=== PATIENT | female | born 1940 | race Caucasian/White ===

== ENCOUNTER 2019-09-11 09:57 | Outpatient (CLI) | payer MEDICARE, SELFPAY ==
--- NOTE | 2019-09-11 10:09 | MM_ITS ---
WS: [id number] BILATERAL DIGITAL DIAGNOSTIC MAMMOGRAM MAMMOGRAPHY WITH CAD CLINICAL INFORMATION: HX OF BREAST CA COMPARISON: December 17, 2016 TECHNIQUE: Bilateral CC, MLO, and ML views. FINDINGS: The breasts are composed of heterogeneous fibroglandular density, which can limit the detection of sm all underlying mass lesions. Stable lucent centered calcifications. Stable postoperative changes with parenchymal scarring in the left lower inner breast. This is stable since the prior examination. No significant interval changes. Stable right breast. MM/[id number] IMPRESSION: BI-RADS: 2-Benign FOLLOW UP: 1 Year Follow-up Recommend return to annual diagnostic mammography.
== END 2019-09-11 09:58 | disposition home or self-care (01) ==
LOC: RADSHAW 10:02
PROVIDERS: Family Provider Internal Medicine; PCP Internal Medicine; Visit Provider Internal Medicine
DX: Z85.3 Personal history of malignant neoplasm of breast (principal)
CPT/HCPCS: 77066

== ENCOUNTER 2019-09-14 19:03 | Emergency (ER) | payer MEDICARE, SELFPAY ==
[2019-09-14 19:17] VITALS: BP 205/119; PULSE 72; RESP 16; TEMP 36.6; O2SAT 98
--- NOTE | 2019-09-14 19:20 | CTR_ITS ---
PROCEDURE INFORMATION: Exam: CT Head Without Contrast Exam date and time: 09/14/2019 7:55 PM Age: 79 years old Clinical indication: Injury or trauma; Fall; Initial encounter; Blunt trauma (contusions or hematomas); Consciousness not specified; Injury details: Fell onto concrete. RT orbit lac TECHNIQUE: Imaging protocol: Computed tomography of the head without contrast. Total DLP: 662.4 mGy-cm Radiation optimization: All CT scans at this facility use at least one of these dose optimization techniques: automated exposure control; mA and/or kV adjustment per patient size (includes targeted exams where dose is matched to clinical indication); or iterative reconstruction. COMPARISON: No relevant prior studies available. FINDINGS: Brain: Small acute subarachnoid hemorrhage in the high right frontal lobe. There are moderate periventricular and subcortical lucencies consistent with chronic microvascular ischemic changes. The ashton-white differentiation is maintained. No edema. Ventricles: Ventricles and sulci are prominent consistent with age appropriate parenchymal volume loss. Bones/joints: Unremarkable. No acute fracture. Sinuses: Visualized sinuses are unremarkable. No fluid levels. Mastoid air cells: Visualized mastoid air cells are well aerated. Soft tissues: Right periorbital hematoma. CT/CT head wo con* [id number] IMPRESSION: Small acute subarachnoid hemorrhage in the high right frontal lobe. Radiation Dose CTDIVOL = (mGy): DLP = 662.4 (mGy-cm)
--- NOTE | 2019-09-14 19:28 | XR_ITS ---
WS: [id number] KNEE LEFT TECHNIQUE: 3 views of the left knee CLINICAL INFORMATION: fall COMPARISON: None. FINDINGS: Osteopenia. Postoperative changes intramedullary minnie and screw fixation left femur. Moderate degenera tive arthritis left knee. Vascular calcification. No evidence of hardware loosening. No visualized fr actures. XR/XR knee LT 3V* [id number] IMPRESSION: 1. Osteopenia. No acute fractures. 2. Intramedullary minnie and screw fixation left hip and femur.
--- NOTE | 2019-09-14 19:28 | ED_ITS ---
Documented by User: ORLIN Pena 09/14/19 21:28 HPI - Fall General: Chief Complaint: Fall Stated Complaint: FALL/FOREHEAD LAC Time Seen by Provider: 09/14/19 19:24 History of Present Illness: HPI Narrative: Patient complains about fall at home just a little while ago. Patient tripped on her feet. Struck right side of her head. And sustained a laceration. Also complains about left knee pain with abrasion. Patient is on blood thinners. History of multiple falls. MD complaint: fall Onset (ago): minute(s) Fall from: standing Fall witnessed: yes, by family Place fall occurred: home Loss of consciousness: None Symptoms prior to fall: none Context: tripped/slipped Location of injury - extremities: Left: knee Severity: mild Associated symptoms-after fall: Denies abdominal pain, chest pain or headache(s) Review of Systems Narrative: Laceration right forehead and knee abrasion and pain left Const: Denies: fever, chills or body aches Eyes: Denies: change in vision or blurry vision ENMT: Denies: throat pain or nasal congestion Card: Denies: chest pain or shortness of breath on exertion Resp: Denies: shortness of breath, productive cough or non-productive cough GI: Denies: abdominal pain, nausea or vomiting Musc: Reports: extremity pain; Denies: joint pain or joint swelling Skin/Breast: Denies: rash Neuro: Denies: headache Psych: Denies: anxiety or depression Krishna/Lymph: Denies: easy bruising PFSH ED PFSH: Statuses (acute, chronic, etc) shown below reflect problem list status as previously entered and may not be historically accurate Social History Smoking and tobacco status: never smoked Physical Exam Const: COMMON NORMALS: no apparent distress, average body habitus and oriented x3 HENMT: COMMON NORMALS: normocephalic HEAD & SCALP: normal to inspection and normocephalic FACE & SINUS: normal facial exam Eye: COMMON NORMALS: conjunctivae normal GENERAL EYE: normal appearance of both eyes CONJUNCTIVA: Yes conjunctivae normal Neck/C-Spine: COMMON NORMALS: no JVD Chest: COMMONS NORMALS: inspection of chest normal Resp: COMMON NORMALS: normal respiratory effort and clear to auscultation bilaterally AUSCULTATION: clear to auscultation bilaterally Cardio: COMMON NORMALS: no JVD, regular rate and regular rhythm RATE: regular rate RHYTHM: regular rhythm GI: COMMON NORMALS: normal to inspection, nondistended, normoactive bowel sounds Extremity: COMMON NORMALS: normal to inspection and full ROM LEFT LOWER EXTREMITY: Yes knee joint (Multiple abrasions left knee no swelling pain with palpation has good range of motion) Neuro: COMMON NORMALS: oriented x3 Skin: GENERAL SKIN EXAM: ecchymosis Procedures Laceration Laceration 1: Site: face Side (If applicable): right Size (cm): 1.5 Description: irregular Depth: simple, single layer Local Anesthetic: lidocaine 1% Pre-repair: wound explored Skin layer closed with: nylon Size (cm): 4-0 Number of sutures: 4 Technique: simple, interrupted Course Vital Signs: Vital signs: Vital Signs Temperature 97.8 F 09/14/19 19:17 Pulse Rate 74 09/14/19 21:31 Respiratory Rate 18 09/14/19 21:31 Blood Pressure 178/89 09/14/19 21:31 Pulse Oximetry 93 09/14/19 21:31 MDM - Fall Lab Data: Labs: Lab Results 09/14/19 09/14/19 09/14/19 Range/Units 21:01 21:01 21:01 WBC 8.7 (4.0-10.0) 10^3/ uL RBC 4.11 (4.1-5.3) 10^6/u L Hgb 13.8 (11.5-15.3) g/dL Hct 42.9 (37.0-47.0) % MCV 104.4 H (81-99) fL MCH 33.6 (28.0-34.0) pg MCHC 32.2 (30.0-36.0) g/dL RDW 13.2 (12.1-15.1) % Plt Count 167 (130-400) 10^3/c mm MPV 10.2 (7.4-10.4) fL Neut % (Auto) 78.7 % Lymph % (Auto) 12.3 % Waller % (Auto) 6.3 % Eos % (Auto) 2.1 % Baso % (Auto) 0.3 % Neut # (Auto) 6.9 (1.8-7.7) 10^3/u L Lymph # (Auto) 1.1 (0.8-4.8) 10^3/u L Waller # (Auto) 0.6 (0.2-0.9) 10^3/u L Eos # (Auto) 0.2 (0.0-0.8) 10^3/u L Baso # (Auto) 0.0 (0.0-0.1) 10^3/u L Nucleated RBC % (a uto) 0 % Nucleated RBCs # 0.0 /100WBC PT 15.20 H (10.5-13.3) SECO NDS INR 1.16 (0.8-1.2) Sodium 140 (136-145) mmol/L Potassium 4.0 (3.5-5.1) mmol/L Chloride 104 (98-107) mmol/L Carbon Dioxide 22 (22-29) mmol/L Anion Gap 18.0 (5-19) BUN 18 (8-23) mg/dL Creatinine 1.0 H (0.5-0.9) mg/dL Glucose 131 H (74-106) mg/dL Calcium 9.8 (8.8-10.2) mg/Dl Total Bilirubin 0.6 (0.15-1.2) mg/dL AST 26 (0-32) U/L ALT 16 (0-33) U/L Alkaline Phosphata se 85 (35-105) IU/L Total Protein 7.6 (6.6-8.7) g/dL Albumin 4.0 (3.5-5.2) g/dL Globulin 3.6 (1.3-4.6) g/dL Discharge Plan Discharge Patient Disposition: Transfer to ED Clinical Impression: Subarachnoid hemorrhage Condition: Stable Referrals: Miguel Moser DO [Primary Care Provider] - Coding Level of Care Code ED Hose Suspender Cutter for Chg Fwd Exam Problem Focused Documented by User: Sharlene Hanson MD 09/14/19 22:08 HPI - Fall General: Chief Complaint: Fall Stated Complaint: FALL/FOREHEAD LAC Time Seen by Provider: 09/14/19 19:24 [facility] ED PFSH: Statuses (acute, chronic, etc) shown below reflect problem list status as previously entered and may not be historically accurate Social History Smoking and tobacco status: never smoked Course Vital Signs: Vital signs: Vital Signs Temperature 97.8 F 09/14/19 19:17 Pulse Rate 74 09/14/19 21:31 Respiratory Rate 18 09/14/19 21:31 Blood Pressure 178/89 09/14/19 21:31 Pulse Oximetry 93 09/14/19 21:31 MDM - Fall MDM Narrative: Medical decision making narrative: Patient presents with subarachnoid hemorrhage from a fall. Patient is hypertensive as well. Patient started on Cardizem drip and blood pressure improved slightly and given hydralazine as well and is 134/100 on transfer. I spoke to ER physician at [facility] and will transfer there for higher level of care as patient needs neurosurgery. I spoke to Dr. Holcomb here about the possibility of giving Andexxa. As a subarachnoid hemorrhage is small decision made at this time not to delay transfer for the Andexxa and will transfer onto [facility]. Patient has been stable here with no symptoms. Lab Data: Labs: Lab Results 09/14/19 09/14/19 09/14/19 Range/Units 21:01 21:01 21:01 WBC 8.7 (4.0-10.0) 10^3/ uL RBC 4.11 (4.1-5.3) 10^6/u L Hgb 13.8 (11.5-15.3) g/dL Hct 42.9 (37.0-47.0) % MCV 104.4 H (81-99) fL MCH 33.6 (28.0-34.0) pg MCHC 32.2 (30.0-36.0) g/dL RDW 13.2 (12.1-15.1) % Plt Count 167 (130-400) 10^3/c mm MPV 10.2 (7.4-10.4) fL Neut % (Auto) 78.7 % Lymph % (Auto) 12.3 % Waller % (Auto) 6.3 % Eos % (Auto) 2.1 % Baso % (Auto) 0.3 % Neut # (Auto) 6.9 (1.8-7.7) 10^3/u L Lymph # (Auto) 1.1 (0.8-4.8) 10^3/u L Waller # (Auto) 0.6 (0.2-0.9) 10^3/u L Eos # (Auto) 0.2 (0.0-0.8) 10^3/u L Baso # (Auto) 0.0 (0.0-0.1) 10^3/u L Nucleated RBC % (a uto) 0 % Nucleated RBCs # 0.0 /100WBC PT 15.20 H (10.5-13.3) SECO NDS INR 1.16 (0.8-1.2) Sodium 140 (136-145) mmol/L Potassium 4.0 (3.5-5.1) mmol/L Chloride 104 (98-107) mmol/L Carbon Dioxide 22 (22-29) mmol/L Anion Gap 18.0 (5-19) BUN 18 (8-23) mg/dL Creatinine 1.0 H (0.5-0.9) mg/dL Glucose 131 H (74-106) mg/dL Calcium 9.8 (8.8-10.2) mg/Dl Total Bilirubin 0.6 (0.15-1.2) mg/dL AST 26 (0-32) U/L ALT 16 (0-33) U/L Alkaline Phosphata se 85 (35-105) IU/L Total Protein 7.6 (6.6-8.7) g/dL Albumin 4.0 (3.5-5.2) g/dL Globulin 3.6 (1.3-4.6) g/dL Imaging Data^: CT Head: Radiologist's impression: Ordering Physician: Sharlene Hanson MD Date of Service: 09/14/19 Procedure(s): CT head wo con* [id number] Accession Number(s): [id number] cc: Sharlene Hanson MD ADDENDUM CT/CT head wo con* [id number] THIS REPORT CONTAINS FINDINGS THAT MAY BE CRITICAL TO PATIENT CARE. The findings were verbally communicated via telephone conference with THIERRY Coffman at 8:30 PM TOOL/DIE MAKER on 09/14/2019. The findings were acknowledged and understood. Radiation Dose CTDIVOL = (mGy): DLP = 662.4 (mGy-cm) Addendum Dictated By: Jackson Rizzo MD 09/14/192029 Addendum Signed By: Jackson Rizzo MD 09/14/192031 PROCEDURE INFORMATION: Exam: CT Head Without Contrast Exam date and time: 09/14/2019 7:55 PM Age: 79 years old Clinical indication: Injury or trauma; Fall; Initial encounter; Blunt trauma (contusions or hematomas); Consciousness not specified; Injury details: Fell onto concrete. RT orbit lac TECHNIQUE: Imaging protocol: Computed tomography of the head without contrast. Total DLP: 662.4 mGy-cm Radiation optimization: All CT scans at this facility use at least one of these dose optimization techniques: automated exposure control; mA and/or kV adjustment per patient size (includes targeted exams where dose is matched to clinical indication); or iterative reconstruction. COMPARISON: No relevant prior studies available. FINDINGS: Brain: Small acute subarachnoid hemorrhage in the high right frontal lobe. There are moderate periventricular and subcortical lucencies consistent with chronic microvascular ischemic changes. The ashton-white differentiation is maintained. No edema. Ventricles: Ventricles and sulci are prominent consistent with age appropriate parenchymal volume loss. Bones/joints: Unremarkable. No acute fracture. Sinuses: Visualized sinuses are unremarkable. No fluid levels. Mastoid air cells: Visualized mastoid air cells are well aerated. Soft tissues: Right periorbital hematoma. CT/CT head wo con* [id number] IMPRESSION: Small acute subarachnoid hemorrhage in the high right frontal lobe. Critical Care Time Critical Care Time: Critical Care Time: Yes Total Critical Care Time: 35 Attestation: Consulted with neurosurgery had strict blood pressure control for subarachnoid hemorrhage and had to transfer to [facility]. Discharge Plan Discharge Patient Disposition: Transfer to ED Clinical Impression: Subarachnoid hemorrhage Condition: Stable Referrals: Miguel Moser DO [Primary Care Provider] - Coding Level of Care Code ED Hose Suspender Cutter for Chg Fwd Exam Problem Focused
--- NOTE | 2019-09-14 19:43 | PC.NURSE ---
Assisted patient off of the bedside commode and to the bed. Patient was able to change out of wet pants into briefs and paper bottom scrubs with assistance. Placed patient on Pulse Ox and Blood Pressure, call light in reach and family at bedside.
[2019-09-14 21:11] LABS: Basophils % 0.3 %; Eosinophils # 0.2 10^3/uL (0.0-0.8); Eosinophils % 2.1 %; Hematocrit 42.9 % (37.0-47.0); Hemoglobin 13.8 g/dL (11.5-15.3); Lymphocytes # 1.1 10^3/uL (0.8-4.8); Lymphocytes % 12.3 %; Mean Corpuscular HGB Conc 32.2 g/dL (30.0-36.0); Mean Corpuscular Hemoglobin 33.6 pg (28.0-34.0); Mean Corpuscular Volume 104.4 fL (81-99); Mean Platelet Volume 10.2 fL (7.4-10.4); Monocytes # 0.6 10^3/uL (0.2-0.9); Monocytes % 6.3 %; Neutrophils # 6.9 10^3/uL (1.8-7.7); Neutrophils % 78.7 %; Nucleated Red Blood Cells % 0 %; Platelet Count 167 10^3/cmm (130-400); Red Blood Count 4.11 10^6/uL (4.1-5.3); Red Cell Distribution Width 13.2 % (12.1-15.1); White Blood Count 8.7 10^3/uL (4.0-10.0)
[2019-09-14 21:17] LABS: INR 1.16 (0.8-1.2)
[2019-09-14 21:28] LABS: Alanine Aminotransferase 16 U/L (0-33); Alkaline Phosphatase 85 IU/L (35-105); Aspartate Amino Transferase 26 U/L (0-32); Blood Urea Nitrogen 18 mg/dL (8-23); Calcium 9.8 mg/Dl (8.8-10.2); Carbon Dioxide 22 mmol/L (22-29); Chloride 104 mmol/L (98-107); Globulin 3.6 g/dL (1.3-4.6); Glucose 131 mg/dL (74-106); Sodium 140 mmol/L (136-145); Total Bilirubin 0.6 mg/dL (0.15-1.2); Total Protein 7.6 g/dL (6.6-8.7)
--- NOTE | 2019-09-14 21:29 | PC.NURSE ---
PT UP TO BSC WITH STAND BY ASSIST. FAMILY AT BEDSIDE. CARDENE GTT INFUSING ORDERED.
[2019-09-14 21:31] VITALS: BP 178/89; PULSE 74; RESP 18; O2SAT 93
[2019-09-14] MEDS: hyDRALAzine 20 mg/mL INJ 1 mL IVP (21:42)
[2019-09-14 22:22] VITALS: BP 176/88; PULSE 72; RESP 31; TEMP 36.4; O2SAT 92
[2019-09-14 22:23] VITALS: BP 100/43; PULSE 70; RESP 18; O2SAT 96
== END 2019-09-14 22:26 ==
PROVIDERS: Nurse Practitioner Family; Emergency Provider Emergency Medicine; Family Provider Internal Medicine; PCP Internal Medicine
DX: I60.9 Nontraumatic subarachnoid hemorrhage, unspecified (principal); S01.81XA Laceration without foreign body of other part of head, initial encounter; W01.0XXA Fall on same level from slipping, tripping and stumbling without subsequent striking against object, initial encounter; Y92.009 Unspecified place in unspecified non-institutional (private) residence as the place of occurrence of the external cause
CPT/HCPCS: 12011; 70450; 73562; 80053; 85025; 85610; 96360; 96365; 96374; 96375; 99281; J0360; J7050

== ENCOUNTER 2020-08-16 08:59 | Outpatient (CLI) | payer MEDICARE, SELFPAY ==
--- NOTE | 2020-08-16 09:30 | USCV_ITS ---
Silvana Martinez Age: 80 Gender: F : 1940 Exam Date: 08/16/2020 09:24 Ordering Phys: Sherry Porter Technologist: Doris Elliott Exam Location: [facility] [place] Indication: HISTORY: Varicose veins. PROCEDURES: Bilateral duplex Venous Insufficiency study of the Deep and Superficial systems was carried out according to normal protocol with the patient in supine positon for deep system and dependent position for the superficial system. FINDINGS: There is no evidence of bilateral deep vein thrombosis. No evidence of superficial thrombosis in the bilateral saphenous system. No evidence of reflux was noted in the bilateral deep venous system. No venous reflux noted in the bilateral small saphenous vein. Venous reflux is demonstrated in the bilateral greater saphenous vein with a spectral Doppler display of greater than 500 milliseconds at the below the knee level. CONCLUSIONS 1. No evidence of DVT or superficial vein thrombosis in the above- mentioned identifiable veins. 2. Significant venous reflux of greater than 500 ms were noted bilaterally at the below-knee segment of the greater saphenous vein. On the right side, the venous segment was 0.31 cm in diameter at a depth of 1.66 cm. On the left side the venous segment was of small caliber( 0.19 cm in diameter), at a depth of 1.63 cm. 3. No significant reflux was noted in the deep veins. Dr Siena Xiong MD [facility] (Electronically Signed) Final Date: 16 August 2020 20:02 S
== END 2020-08-16 09:00 | disposition home or self-care (01) ==
PROVIDERS: PCP Internal Medicine; Visit Provider Nurse Practitioner Family
DX: I87.2 Venous insufficiency (chronic) (peripheral) (principal); I83.91 Asymptomatic varicose veins of right lower extremity; I83.92 Asymptomatic varicose veins of left lower extremity
CPT/HCPCS: 93970

== ENCOUNTER 2020-09-16 09:39 | Outpatient (CLI) | payer MEDICARE, SELFPAY ==
--- NOTE | 2020-09-16 09:46 | MM_ITS ---
WS: [id number] DIAGNOSTIC BILATERAL DIGITAL MAMMOGRAM WITH CAD HISTORY: HX OF BREAST CA COMPARISON: 09/11/2019, 12/17/2016 TECHNIQUE: Bilateral craniocaudad, mediolateral oblique, and mediolateral views are submitted. Comput er aided detection utilized. Breast composition: The breasts are heterogeneously dense, which may obscure small masses. Postsurgic al changes with distortion and postoperative clips are noted in the central LEFT breast. Similar to t he prior study. No recurrent mass. There are benign calcifications otherwise within each breast. Smal l portion of the LEFT breast is being obscured by the patient's generator from cardiac pacer. MM/[place] [id number] IMPRESSION: BI-RADS: 2-Benign FOLLOW UP: 1 Year Follow-up
== END 2020-09-16 09:40 | disposition home or self-care (01) ==
PROVIDERS: PCP Internal Medicine; Visit Provider Internal Medicine
DX: Z85.3 Personal history of malignant neoplasm of breast (principal)
CPT/HCPCS: 77066

== ENCOUNTER 2020-11-04 17:48 | Emergency (ER) | payer MEDICARE, SELFPAY ==
--- NOTE | 2020-11-04 17:50 | XRR_ITS ---
PROCEDURE INFORMATION: Exam: XR Right Wrist Exam date and time: 11/04/2020 6:00 PM Age: 80 years old Clinical indication: Pain and injury or trauma; Fall; Blunt trauma (contusions or hematomas); Wrist; Right; Injury date: 11/04/20; Additional info: Fall, injury TECHNIQUE: Imaging protocol: XR Right wrist. Views: 3 or more views. COMPARISON: No relevant prior studies available. FINDINGS: Bones/joints: Acute comminuted intra-articular fracture of the distal radius with dorsal displacement and angulation of the major distal fracture fragment. Displaced ulnar styloid avulsion fracture. Degenerative change. Soft tissues: Soft tissue swelling. XR/XR wrist RT min 3V* [id number] IMPRESSION: 1. Acute comminuted intra-articular fracture of the distal radius with dorsal displacement and angulation of the major distal fracture fragment. 2. Displaced ulnar styloid avulsion fracture.
[2020-11-04 17:51] VITALS: BP 141/87; PULSE 72; RESP 14; TEMP 36.4; O2SAT 98; BMI 32.5
--- NOTE | 2020-11-04 18:09 | W.ED.FALL ---
HPI - Fall General: Chief Complaint: Fall Stated Complaint: FALL/R WRIST PAIN Time Seen by Provider: 11/04/20 18:03 Source: patient Mode of arrival: ambulatory Limitations: no limitations History of Present Illness: HPI Narrative: Patient comes in today for injury to the right wrist. Patient had stood up from her chair and tripped and fell landing with an outstretched right arm. Patient sustained a deformity to the distal right forearm. Patient is unable to put pressure on the arm. Patient had to come in by EMS due to needing assistance getting up off the floor. Patient denies any loss of consciousness or other eliciting events for the fall. 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 2012 Social History Smoking and tobacco status: former smoker Alcohol intake: never Physical Exam Const: COMMON NORMALS: no acute distress and patient oriented x3 GENERAL APPEARANCE: cooperative HENMT: COMMON NORMALS: normocephalic and Normal external nose present HEAD & SCALP: normal to inspection and normocephalic NOSE: Normal external nose present MOUTH: Normal oral and palatal mucosa present Eye: GENERAL EYE: appearance normal, both eyes and all related structures Neck/C-Spine: COMMON NORMALS: full ROM Chest: COMMONS NORMALS: normal inspection of the chest Resp: COMMON NORMALS: normal respiratory effort EFFORT & INSPECTION: Yes able to speak in complete sentences Cardio: COMMON NORMALS: regular rate and regular rhythm RATE: regular rate RHYTHM: regular rhythm GI: COMMON NORMALS: non-tender Back/Pelvis: COMMON NORMALS: thoracic and lumbar spine normal to inspection Extremity: COMMON NORMALS: normal to inspection NARRATIVE EXTREMITY EXAM: deformity to distal right forearm, Edson splint in place Neuro: COMMON NORMALS: patient oriented x3 and moves all extremities Psych: COMMON NORMALS: mental status grossly normal and cooperative Skin: COMMON NORMALS: no rashes or lesions noted GENERAL SKIN EXAM: no rashes or lesions noted Procedures Orthopedic Splinting/Casting Injury #1: Side: right Upper Extremity Injury Location: forearm Upper Extremity Immobilizer: sling/shoulder immobilizer and sugar tong splint Course Vital Signs: Vital signs: Vital Signs Temperature 97.6 F 11/04/20 17:51 Pulse Rate 72 11/04/20 17:51 Respiratory Rate 14 11/04/20 17:51 Blood Pressure 141/87 11/04/20 17:51 Pulse Oximetry 98 11/04/20 17:51 MDM - Fall MDM Narrative: Medical decision making narrative: Patient came in for injury to the right distal forearm. On exam we note a dinner fork deformity to the exam. There is a small abrasion noted to the ventral side of the forearm without any sign of bony protrusion. X-ray noted comminuted fracture of the distal radius. Patient was tolerating injury well. Patient was placed in a sugar tong splint and cap refill and sensation remained intact. Plan is for patient to follow-up with orthopedics for further treatment and evaluation. Patient reported understanding of care plan and agreed to plan. Patient was written a prescription for hydrocodone with acetaminophen for pain. Instructions were given on the use of opioid medications. Case management was consulted to assist with orthopedic referral. Discharge Plan Discharge Patient Disposition: Home Clinical Impression: Fracture of wrist Qualifiers: Encounter type: initial encounter Fracture type: closed Laterality: right Qualified Code(s): S62.101A - Fracture of unspecified carpal bone, right wrist, initial encounter for closed fracture Condition: Stable Prescriptions: New hydrocodone-acetaminophen 5-325 mg tablet 1 tab PO Q6H PRN (Reason: pain) Qty: 14 RF: 0 No Action duloxetine 30 mg capsule,delayed release(DR/EC) 30 mg PO DAILY RF: 0 isosorbide mononitrate 30 mg tablet extended release 24 hr 30 mg PO DAILY RF: 0 Eliquis 2.5 mg tablet 2.5 mg PO BID RF: 0 gabapentin 300 mg capsule 300 mg PO TID RF: 0 potassium chloride 10 mEq capsule, extended release 10 meq PO DAILY RF: 0 sertraline 50 mg tablet 50 mg PO DAILY RF: 0 cholecalciferol (vitamin D3) 2,000 unit tablet 2,000 unit PO DAILY RF: 0 [id number] Tablet PO RF: 0 carvedilol 6.25 mg tablet 6.25 mg PO BID RF: 0 alendronate 70 mg tablet PO .weekly RF: 0 simvastatin 20 mg tablet 10 mg PO DAILY RF: 0 furosemide 20 mg tablet 40 mg PO QAM RF: 0 Discharge Orders: Discharge ED (Routine); Ordered 11/04/20 Ordered By: Justin Wolf Referrals: Miguel Moser DO [Primary Care Provider] - Discharge Diet: Usual diet Discharge Activity: Increase activity as tolerated Patient Instructions: Wrist Fracture in Adults (ED), Opioid Safety Activity Restrictions/Additional Instructions: Keep splint clean and dry. Follow-up with orthopedics office for further treatment. Case management should contact you tomorrow for an appointment with orthopedist. If you do not hear from them by tomorrow afternoon please call the emergency department and talk with the ER charge nurse to be directed to the nurse outreach case manager for further assistance. Take medication as directed for pain. Use ice or heat for further pain relief. Drink plenty of water with medication. The medication is a narcotic and may make you lightheaded, nauseous, or can cause constipation. You may try acetaminophen or ibuprofen for pain relief if you are able to take these medications and can tolerate them. Return to the emergency department for new concerns, or any questions regarding your injury. Coding Level of Care Code ED Cdl A Driver for Scottie Fwd Exam Comprehensive
[2020-11-04] MEDS: HYDROcodone-acetaminophen 5-325 mg Tablet 2 TAB PO (18:53)
--- NOTE | 2020-11-05 10:47 | DCPLANNER ---
blood bank business manager had message to schedule a follow up appointment for patient with ortho. blood bank business manager called the ortho clinic, spoke with Ivette, gave clinic patients information. blood bank business manager was told that patients information would be printed and reviewed. Clinic will call patient with appointment information.
--- NOTE | 2020-11-05 13:58 | DCPLANNER ---
Patient has a follow up appointment scheduled for Friday, November 06, 2020 at 8:[address] Dunlap at the ortho clinic. manager commodities gave patient the appointment information.
--- NOTE | 2020-11-13 15:08 | DCPLANNER ---
Patient had a follow up appointment scheduled for 11.06.[address] Dunlap - patient did attend appointment.
== END 2020-11-04 19:13 | disposition home or self-care (01) ==
PROVIDERS: Emergency Provider Nurse Practitioner Family; PCP Internal Medicine
DX: S52.591A Other fractures of lower end of right radius, initial encounter for closed fracture (principal); W01.0XXA Fall on same level from slipping, tripping and stumbling without subsequent striking against object, initial encounter; Z79.01 Long term (current) use of anticoagulants; I48.91 Unspecified atrial fibrillation; Z95.810 Presence of automatic (implantable) cardiac defibrillator; I10 Essential (primary) hypertension; Z87.891 Personal history of nicotine dependence
CPT/HCPCS: 73110; 99283

== ENCOUNTER → 2020-11-06 09:04 | Outpatient (BNVA) | payer MEDICARE, SELFPAY | PROVIDERS: PCP Internal Medicine; Referring Provider Nurse Practitioner Family; Visit Provider Specialist | DX: S52.601A Unspecified fracture of lower end of right ulna, initial encounter for closed fracture (principal); S52.501A Unspecified fracture of the lower end of right radius, initial encounter for closed fracture; W18.09XA Striking against other object with subsequent fall, initial encounter; S62.101A Fracture of unspecified carpal bone, right wrist, initial encounter for closed fracture | CPT/HCPCS: 73100; 73110 ==

== ENCOUNTER → 2020-11-18 10:24 | Outpatient (BNVA) | payer MEDICARE, SELFPAY | PROVIDERS: PCP Internal Medicine; Visit Provider Specialist | DX: S52.501A Unspecified fracture of the lower end of right radius, initial encounter for closed fracture (principal); S52.601A Unspecified fracture of lower end of right ulna, initial encounter for closed fracture; X58.XXXA Exposure to other specified factors, initial encounter; Z46.89 Encounter for fitting and adjustment of other specified devices; S52.591D Other fractures of lower end of right radius, subsequent encounter for closed fracture with routine healing; X58.XXXD Exposure to other specified factors, subsequent encounter; S52.691D Other fracture of lower end of right ulna, subsequent encounter for closed fracture with routine healing | CPT/HCPCS: 73110; 97760; L3982 ==

== ENCOUNTER 2020-11-18 11:49 | Outpatient (CLI) | payer MEDICARE, SELFPAY | END 2020-11-18 11:50 | disposition home or self-care (01) | LOC: SPT 11:50 | PROVIDERS: PCP Internal Medicine; Visit Provider Specialist | DX: Z46.89 Encounter for fitting and adjustment of other specified devices (principal); S52.591D Other fractures of lower end of right radius, subsequent encounter for closed fracture with routine healing; S52.691D Other fracture of lower end of right ulna, subsequent encounter for closed fracture with routine healing; X58.XXXD Exposure to other specified factors, subsequent encounter | CPT/HCPCS: 97760; L3982 ==

== ENCOUNTER → 2020-12-02 08:47 | Outpatient (BNVA) | payer MEDICARE, SELFPAY | PROVIDERS: PCP Internal Medicine; Visit Provider Specialist | DX: S52.501A Unspecified fracture of the lower end of right radius, initial encounter for closed fracture (principal); S52.601A Unspecified fracture of lower end of right ulna, initial encounter for closed fracture; X58.XXXA Exposure to other specified factors, initial encounter | CPT/HCPCS: 73110 ==

== ENCOUNTER → 2020-12-23 09:36 | Outpatient (BNVA) | payer MEDICARE, SELFPAY | PROVIDERS: PCP Internal Medicine; Visit Provider Specialist | DX: S52.501D Unspecified fracture of the lower end of right radius, subsequent encounter for closed fracture with routine healing (principal); S52.601D Unspecified fracture of lower end of right ulna, subsequent encounter for closed fracture with routine healing; W01.0XXD Fall on same level from slipping, tripping and stumbling without subsequent striking against object, subsequent encounter | CPT/HCPCS: 73110 ==

== ENCOUNTER 2021-11-19 12:23 | Outpatient (CLI) | payer MEDICARE, SELFPAY ==
--- NOTE | 2021-11-19 12:30 | MM_ITS ---
WS: [id number] BILATERAL 3D TOMOSYNTHESIS DIGITAL SCREENING MAMMOGRAPHY WITH CAD CLINICAL INFORMATION: HX OF BREAST CA HISTORY: Screening mammogram. No current complaints. COMPARISON: September 16, 2020 TECHNIQUE: Bilateral CC and MLO views. FINDINGS: Scattered fibroglandular densities bilaterally. Biopsy clips RIGHT breast. Punctate and secretory yazmin cifications. Cardiac pacer partially visualized. Lumpectomy with parenchymal fibrosis LEFT breast. No suspicious focal mass, asymmetry, calcifications, or architectural distortion. No evidence of malign sarah. MM/[place] [id number] IMPRESSION: BI-RADS: 2-Benign FOLLOW UP: 1 Year Follow-up Recommend return to annual screening mammography.
== END 2021-11-19 12:24 | disposition home or self-care (01) ==
LOC: RADSHAW 12:25
PROVIDERS: PCP Internal Medicine; Visit Provider Internal Medicine
DX: Z85.3 Personal history of malignant neoplasm of breast (principal)
CPT/HCPCS: 77062

== ENCOUNTER → 2022-02-13 11:07 | Outpatient (BNVA) | payer MEDICARE, SELFPAY | PROVIDERS: PCP Internal Medicine; Visit Provider Internal Medicine | DX: Z45.02 Encounter for adjustment and management of automatic implantable cardiac defibrillator (principal) | CPT/HCPCS: 93284 ==

== ENCOUNTER → 2022-05-15 10:58 | Outpatient (BNVA) | payer MEDICARE, SELFPAY | PROVIDERS: PCP Internal Medicine; Visit Provider Internal Medicine | DX: I11.0 Hypertensive heart disease with heart failure (principal); I50.9 Heart failure, unspecified; Z87.891 Personal history of nicotine dependence; I48.19 Other persistent atrial fibrillation; Z79.01 Long term (current) use of anticoagulants; Z95.810 Presence of automatic (implantable) cardiac defibrillator; I25.10 Atherosclerotic heart disease of native coronary artery without angina pectoris | CPT/HCPCS: 93281; 93284; 99214 ==

== ENCOUNTER → 2022-09-18 10:30 | Outpatient (BNVA) | payer MEDICARE, SELFPAY | PROVIDERS: PCP Internal Medicine; Visit Provider Internal Medicine | DX: Z45.02 Encounter for adjustment and management of automatic implantable cardiac defibrillator (principal) | CPT/HCPCS: 93284 ==

== ENCOUNTER 2022-09-20 14:28 | Emergency (ER) | payer MEDICARE, SELFPAY ==
[2022-09-20 14:39] VITALS: BP 140/79; PULSE 96; RESP 18; TEMP 36.5; O2SAT 97
--- NOTE | 2022-09-20 15:13 | XRR_ITS ---
PROCEDURE INFORMATION: Exam: XR Chest Exam date and time: 09/20/2022 3:21 PM Age: 82 years old Clinical indication: Device placement; Cardiac pacemaker placement or adjustment; Patient HX: Batteries in pacemaker set to be changed on 09/22/2022; Additional info: Fall; Weak TECHNIQUE: Imaging protocol: Radiologic exam of the chest. Views: 1 view. COMPARISON: CR XR chest 1V [id number] 01/31/2017 2:28 AM FINDINGS: Lungs: Unremarkable. No consolidation. Pleural spaces: Unremarkable. No pleural effusion. No pneumothorax. Heart/Mediastinum: Unremarkable. No cardiomegaly. Bones/joints: Unremarkable. There is a cardiac device in the left anterior chest in good position. XR/XR chest 1V portable [id number] IMPRESSION: No acute findings. Cardiac device left anterior chest in good position
--- NOTE | 2022-09-20 15:13 | CTR_ITS ---
PROCEDURE INFORMATION: Exam: CT Head Without Contrast Exam date and time: 09/20/2022 3:34 PM Age: 82 years old Clinical indication: Injury or trauma; Fall; Blunt trauma (contusions or hematomas); Consciousness not specified; Additional info: Confusion; On blood thinner TECHNIQUE: Imaging protocol: Computed tomography of the head without contrast. Radiation optimization: All CT scans at this facility use at least one of these dose optimization techniques: automated exposure control; mA and/or kV adjustment per patient size (includes targeted exams where dose is matched to clinical indication); or iterative reconstruction. COMPARISON: CT head wo con* [id number] 09/14/2019 8:10 PM RADIATION DOSE METRICS: Total DLP (mGy-cm): 906.74 FINDINGS: Brain: Normal. No hemorrhage. Unremarkable white matter. No mass effect. Cerebral ventricles: No ventriculomegaly. Paranasal sinuses: Visualized sinuses are unremarkable. No fluid levels. Mastoid air cells: Visualized mastoid air cells are well aerated. Bones/joints: Unremarkable. No acute fracture. Soft tissues: Unremarkable. CT/CT head wo con* [id number] IMPRESSION: No acute intracranial abnormality.
--- NOTE | 2022-09-20 15:16 | ED_ITS ---
HPI - Altered Mental Status General: Chief Complaint: Altered Mental Status Stated Complaint: Fall, Dark urine, Confusion Time Seen by Provider: 09/20/22 14:48 Source: patient and other (friend) Mode of arrival: ambulatory Limitations: no limitations History of Present Illness: See nursing assessment. Patient states she slid off the edge of the bed on Wednesday night and landed on the floor. She states she had no injury. However, she was too weak in her upper extremities to pull her self back up. She states that she pulled off her blankets and pillow from the bed and slept on the floor from Wednesday night until Wednesday morning until family came and helped her. She states she did not having a drink or eat during that time. She was taken to [facility] urgent care this weekend and told that she had a lot of protein in her urine. According to friend, patient has been more confused than normal over the past couple days in which she had trouble using her remote control for her TV and also trouble using her phone. Patient is alert and oriented x3 now. Patient is on Eliquis for history of atrial fibrillation. She also has a pacemaker and is scheduled to have her battery replaced in 2 days. She has not had any buzzing of the defibrillator or pacemaker. Possible history includes congestive heart failure, coronary disease, venous insufficiency, coronary stent, atrial fibrillation, essential hypertension. She denies any pain or injury. She denies any headache or neurological changes. She denies any chest or abdominal pain. She denies any shortness of breath. She denies any nausea vomiting or diarrhea. She denies any dysuria Associated symptoms: Deny depression Review of Systems Const: Reports: fatigue and malaise; Denies: fever(s) or chills Eyes: Denies: change in vision ENMT: Denies: throat pain Card: Denies: chest pain, palpitations or edema Resp: Denies: dyspnea, non-productive cough or wheezing GI: Denies: abdominal pain, nausea or vomiting : Denies: flank pain, dysuria, urinary frequency or urinary urgency Musc: Denies: neck pain, back pain, extremity pain, extremity swelling, joint pain or joint swelling Skin/Breast: Denies: rash, pruritus or erythema Neuro: Reports: confusion; Denies: headache(s), numbness in extremities, weakness in extremities, sensory changes, lack of coordination, difficulty walking, dizziness, Slurred speech present or involuntary movements Psych: Denies: anxiety or depression Krishna/Lymph: Denies: enlarged lymph nodes PFSH ED PFSH: Medical History Atrial fibrillation CAD (coronary artery disease) Cardiac resynchronization therapy defibrillator (NURSE INFORMATICS EDUCATOR-D) in place HTN (hypertension) Presence of stent in left circumflex coronary artery 2012 Social History Smoking and tobacco status: former smoker Alcohol intake: never Physical Exam Narrative: Patient is awake alert and oriented x3. Patient is talkative. Speech is clear. Const: COMMON NORMALS: no acute distress, average body habitus, patient orient ed x3, no limitations, healthy appearing, alert and well nourished HENMT: COMMON NORMALS: normocephalic and atraumatic HEAD & SCALP: normocephalic and atraumatic Eye: COMMON NORMALS: Equal, round and reactive pupils present, EOMs intact bilaterally, conjunctivae normal and no scleral icterus CONJUNCTIVA: Yes conjunctivae normal PUPIL: Yes Equal, round and reactive pupils present Neck/C-Spine: COMMON NORMALS: full ROM, no lymphadenopathy, supple, no meni ngeal signs, no JVD and Thyroid normal THYROID: Thyroid normal Lymph: LYMPHATIC: no lymphadenopathy noted and no lymphedema noted Chest: COMMONS NORMALS: normal inspection of the chest Resp: COMMON NORMALS: normal respiratory effort and No retractions Cardio: COMMON NORMALS: no JVD, regular rate (No irregular rate), regular rhythm and No murmurs present (Cardio) RATE: regular rate (No irregular rate) RHYTHM: regular rhythm GI: COMMON NORMALS: Normal to inspection, nondistended, normoactive bowel sounds present, Soft to palpation, non-tender, No hepatosplenomegaly present, no masses and no bruits PALPATION: Yes Soft to palpation and Yes No hepatosplenomegaly present : COMMON NORMALS: Yes no CVA tenderness BLADDER/KIDNEY EXAM: Yes no CVA tenderness OTHER: No flank pain. Back/Pelvis: COMMON NORMALS: no CVA tenderness, thoracic and lumbar spine normal to inspection and no thoracic nor lumbar tenderness Extremity: COMMON NORMALS: normal to inspection, full ROM and no clubbing, cyanosis or edema Neuro: LUIS FELIPE COMA SCALE: document GCS findings Cameron coma scale eye opening: Spontaneous Cameron coma scale verbal response: Orientated Luis Felipe coma scale motor response: Obey commands Luis Felipe coma scale total score: 15 COMMON NORMALS: patient oriented x3, CN's II-XII intact bilaterally, moves all extremities, no focal motor deficits and no sensory deficits noted SENSORIUM/ ORIENTATION: Yes alert MENINGEAL SIGNS: Yes no meningeal signs Psych: COMMON NORMALS: mental status grossly normal, Normal thought process present, cooperative, normal affect, speech normal, activity/motor behavior normal and denies hallucinations SPEECH: Yes normal speech THOUGHT PROCESS: Normal thought process present Skin: COMMON NORMALS: no rashes or lesions noted and no wounds GENERAL SKIN EXAM: no rashes or lesions noted Course Vital Signs: Vital signs: Vital Signs Temperature 97.7 F 09/20/22 14:39 Pulse Rate 93 09/20/22 18:23 Respiratory Rate 18 09/20/22 18:23 Blood Pressure 138/88 09/20/22 17:47 Pulse Oximetry 97 09/20/22 18:23 Oxygen Delivery Me thod 09/20/22 18:23 MDM - Altered Mental Status Medical Decision Making Generalized weakness. Possible rhabdomyolysis. No evidence of dehydration or rhabdomyolysis on her work-up. Patient states she is ready go home. She is well-hydrated. Lab Data 09/20/22 15:51 09/20/22 15:51 Radiology Impressions Chest X-Ray 09/20/22 15:13 IMPRESSION: No acute findings. Cardiac device left anterior chest in good position Head CT 09/20/22 15:13 IMPRESSION: No acute intracranial abnormality. Laboratory Results WBC 4.6 10^3/uL (4.0-10.0) 09/20/22 15:51 RBC 3.70 10^6/uL (4.1-5.3) L 09/20/22 15:51 Hgb 13.2 g/dL (11.5-15.3) 09/20/22 15:51 Hct 40.4 % (37.0-47.0) 09/20/22 15:51 MCV 109.2 fl (81-99) H 09/20/22 15:51 MCH 35.7 pg (28.0-34.0) H 09/20/22 15:51 MCHC 32.7 g/dL (30.0-36.0) 09/20/22 15:51 RDW 13.8 % (12.1-15.1) 09/20/22 15:51 Plt Count 120 10^3/cmm (130-400) L 09/20/22 15:51 MPV 11.1 fL (7.4-10.4) H 09/20/22 15:51 Neut % (Auto) 66.6 % 09/20/22 15:51 Lymph % (Auto) 21.9 % 09/20/22 15:51 [place] % (Auto) 10.7 % 09/20/22 15:51 Eos % (Auto) 0.4 % 09/20/22 15:51 Baso % (Auto) 0.2 % 09/20/22 15:51 Neut # (Auto) 3.04 10^3/uL (1.8-7.7) 09/20/22 15:51 Lymph # (Auto) 1.0 10^3/uL (0.8-4.8) 09/20/22 15:51 [place] # (Auto) 0.5 10^3/uL (0.2-0.9) 09/20/22 15:51 Eos # (Auto) 0.0 10^3/uL (0.0-0.8) 09/20/22 15:51 Baso # (Auto) 0.0 10^3/uL (0.0-0.1) 09/20/22 15:51 Nucleated RBC % (auto) 0 % 09/20/22 15:51 Nucleated RBCs # 0.0 /100WBC 09/20/22 15:51 APTT 39.2 SECONDS (23.9-36.7) H 09/20/22 16:11 Sodium 134 mmol/L (136-145) L 09/20/22 15:51 Potassium 3.7 mmol/L (3.5-5.1) 09/20/22 15:51 Chloride 99 mmol/L (98-107) 09/20/22 15:51 Carbon Dioxide 23 mmol/L (22-29) 09/20/22 15:51 Anion Gap 15.7 (5-19) 09/20/22 15:51 BUN 20 mg/dL (8-23) 09/20/22 15:51 Creatinine 1.0 mg/dL (0.5-0.9) H 09/20/22 15:51 GFR Calculation Not Reportable 09/20/22 15:51 Glucose 81 mg/dL (65-115) 09/20/22 15:51 Calculated Osmolality 280 mOsm/kg (285-295) L 09/20/22 15:51 Calcium 8.4 mg/dL (8.5-10.5) L 09/20/22 15:51 Total Bilirubin 1.1 mg/dL (0.15-1.2) 09/20/22 15:51 AST 34 U/L (0-32) H 09/20/22 15:51 ALT 13 U/L (0-33) 09/20/22 15:51 Alkaline Phosphatase 56 U/L (35-105) 09/20/22 15:51 Creatine Kinase 67 U/L (26-192) 09/20/22 15:51 Total Protein 7.2 g/dL (6.6-8.7) 09/20/22 15:51 Albumin 3.5 g/dL (3.5-5.2) 09/20/22 15:51 Globulin 3.7 g/dL (1.3-4.6) 09/20/22 15:51 Urine Color Yellow (Yellow) 09/20/22 11:19 Urine Appearance Sl hazy (CLEAR) A 09/20/22 11:19 Urine pH 5 (5-7) 09/20/22 11:19 Ur Specific [place] 1.020 (1.005-1.030) 09/20/22 11:19 Urine Protein Trace (Negative) 09/20/22 11:19 Urine Glucose (UA) Norm (Normal) 09/20/22 11:19 Urine Ketones Negative (Negative) 09/20/22 11:19 Urine Blood 2+ (Negative) H 09/20/22 11:19 Urine Nitrate Negative (Negative) 09/20/22 11:19 Urine Bilirubin Neg (Negative) 09/20/22 11:19 Urine Urobilinogen Neg mg/dL (Negative) 09/20/22 11:19 Ur Leukocyte Esterase Negative (Negative) 09/20/22 11:19 Urine RBC 0-4 /hpf (0-2) H 09/20/22 11:19 Urine WBC 0-4 /hpf (0-5) H 09/20/22 11:19 Ur Squamous Epith Cells 25-40 /hpf (0-5) H 09/20/22 11:19 Amorphous Sediment Not Reportable 09/20/22 11:19 Urine Bacteria 1+ /hpf (NONE) H 09/20/22 11:19 Imaging Data CXR: I personally reviewed and interpreted this imaging study as follows: My impression: Mild cardiomegaly. aicd in place. Radiologist's impression: PROCEDURE INFORMATION: Exam: XR Chest Exam date and time: 09/20/2022 3:21 PM Age: 82 years old Clinical indication: Device placement; Cardiac pacemaker placement or adjustment; Patient HX: Batteries in pacemaker set to be changed on 09/22/2022; Additional info: Fall; Weak TECHNIQUE: Imaging protocol: Radiologic exam of the chest. Views: 1 view. COMPARISON: CR XR chest 1V [id number] 01/31/2017 2:28 AM FINDINGS: Lungs: Unremarkable. No consolidation. Pleural spaces: Unremarkable. No pleural effusion. No pneumothorax. Heart/Mediastinum: Unremarkable. No cardiomegaly. Bones/joints: Unremarkable. There is a cardiac device in the left anterior chest in good position. XR/XR chest 1V portable [id number] IMPRESSION: No acute findings. Cardiac device left anterior chest in good position ? Dictated By: Anand Rhodes Signed By: Anand Rhodes Signed Date/Time: 09/20/[address] Head: Radiologist's impression: PROCEDURE INFORMATION: Exam: CT Head Without Contrast Exam date and time: 09/20/2022 3:34 PM Age: 82 years old Clinical indication: Injury or trauma; Fall; Blunt trauma (contusions or hematomas); Consciousness not specified; Additional info: Confusion; On blood thinner TECHNIQUE: Imaging protocol: Computed tomography of the head without contrast. Radiation optimization: All CT scans at this facility use at least one of these dose optimization techniques: automated exposure control; mA and/or kV adjustment per patient size (includes targeted exams where dose is matched to clinical indication); or iterative reconstruction. COMPARISON: CT head wo con* [id number] 09/14/2019 8:10 PM RADIATION DOSE METRICS: Total DLP (mGy-cm): 906.74 FINDINGS: Brain: Normal. No hemorrhage. Unremarkable white matter. No mass effect. Cerebral ventricles: No ventriculomegaly. Paranasal sinuses: Visualized sinuses are unremarkable. No fluid levels. Mastoid air cells: Visualized mastoid air cells are well aerated. Bones/joints: Unremarkable. No acute fracture. Soft tissues: Unremarkable. CT/CT head wo con* [id number] IMPRESSION: No acute intracranial abnormality. ? Dictated By: Anand Rhodes Signed By: Anand Rhodes Signed Date/Time: 09/20/22 1556 EKG Data EKG 1: I personally reviewed and interpreted this EKG as follows: EKG interpretation date: 09/20/22 EKG interpretation time: 16:32 Prior EKG tracings: not available for review Interpretation: Impression ventricular paced rhythm with heart rate 70. Left bundle branch block. Nonspecific ST-T changes consistent with left bundle branch block. Left axis. Discharge Plan Discharge Patient Disposition: Home Clinical Impression: Episode of generalized weakness Fatigue Qualifiers: Fatigue type: unspecified Qualified Code(s): R53.83 - Other fatigue Condition: Stable Prescriptions: No Action isosorbide mononitrate 30 mg tablet extended release 24 hr 30 mg PO DAILY gabapentin 300 mg capsule 300 mg PO TID potassium chloride 10 mEq capsule, extended release 10 meq PO DAILY sertraline 50 mg tablet 50 mg PO DAILY cholecalciferol (vitamin D3) 2,000 unit tablet 2,000 unit PO DAILY [id number] Tablet 1 tab PO DAILY alendronate 70 mg tablet 70 mg PO Q7D Rx Instructions: on Tuesdays simvastatin 20 mg tablet 10 mg PO DAILY furosemide 20 mg tablet 40 mg PO QAM PRN (Reason: Edema) carvedilol 12.5 mg tablet 6.25 mg PO BID Rx Instructions: must administer with a meal/food ketoconazole 2 % cream 1 applic topical BID Qty: 60 3RF Rx Instructions: Apply to affected areas and skin folds x3 weeks. May use as needed for flares. Eliquis 2.5 mg tablet 2.5 mg PO BID Qty: 180 2RF oxybutynin chloride 10 mg tablet extended release 24hr 10 mg PO DAILY Discharge Orders: Discharge ED (Routine); Ordered 09/20/22 Ordered By: Gael Rashid Referrals: Miguel Moser DO [Primary Care Provider] - 1-3 days Discharge Diet: Usual diet Discharge Activity: Increase activity as tolerated Patient Instructions: Weakness (ED), Fatigue (ED) Activity Restrictions/Additional Instructions: Drink plenty fluids. Keep hydrated. No evidence of rhabdomyolysis or kidney injury. No evidence of elevated muscle enzyme(ck).CT scan of the head showed nothing acute. Coding Level of Care Code ED Anatomic Pathology Manager for Scottie Diana History Comprehensive Exam Comprehensive Medical Decision Making Moderate Complexity
[2022-09-20 15:30] VITALS: BP 147/94; PULSE 92; RESP 16; O2SAT 98
[2022-09-20 16:12] LABS: Basophils % 0.2 %; Eosinophils % 0.4 %; Hematocrit 40.4 % (37.0-47.0); Hemoglobin 13.2 g/dL (11.5-15.3); Lymphocytes % 21.9 %; Mean Corpuscular HGB Conc 32.7 g/dL (30.0-36.0); Mean Corpuscular Hemoglobin 35.7 pg (28.0-34.0); Mean Corpuscular Volume 109.2 fl (81-99); Mean Platelet Volume 11.1 fL (7.4-10.4); Monocytes # 0.5 10^3/uL (0.2-0.9); Monocytes % 10.7 %; Neutrophils # 3.04 10^3/uL (1.8-7.7); Neutrophils % 66.6 %; Nucleated Red Blood Cells % 0 %; Platelet Count 120 10^3/cmm (130-400); Red Cell Distribution Width 13.8 % (12.1-15.1); White Blood Count 4.6 10^3/uL (4.0-10.0)
--- NOTE | 2022-09-20 16:30 | ECG_ITS ---
[facility] Test Date: 2022-09-20 Pat Name: Silvana Martinez Department: Room: Gender: Female Noteman: : 1940 Requested By: Gael Lopez Order Number: [id number] Maggy MD: Emir Bryant M.D. Measurements Intervals Clifford Rate: 70 P: 0 AK: 0 QRS: -66 QRSD: 168 T: 127 QT: 477 QTc: 515 Interpretive Statements ELECTRONIC VENTRICULAR PACEMAKER ABNORMAL RHYTHM ECG Compared to ECG 01/31/2017 01:53:52 Pacemaker beats now evident Underlying rhythm still atrial fibrillation. Electronically Signed On 09-21-2022 7:08:14 MAINTENANCE WELDER by Emir Bryant M.D. [email or web address]
[2022-09-20 16:34] LABS: Alanine Aminotransferase 13 U/L (0-33); Albumin Level 3.5 g/dL (3.5-5.2); Alkaline Phosphatase 56 U/L (35-105); Blood Urea Nitrogen 20 mg/dL (8-23); Calcium 8.4 mg/dL (8.5-10.5); Carbon Dioxide 23 mmol/L (22-29); Chloride 99 mmol/L (98-107); Creatine Phosphokinase 67 U/L (26-192); Globulin 3.7 g/dL (1.3-4.6); Glucose 81 mg/dL (65-115); Osmolality Calculated 280 mOsm/kg (285-295); Sodium 134 mmol/L (136-145); Total Bilirubin 1.1 mg/dL (0.15-1.2); Total Protein 7.2 g/dL (6.6-8.7)
[2022-09-20 16:38] LABS: Anion Gap 15.7 (5-19); Aspartate Amino Transferase 34 U/L (0-32); Potassium 3.7 mmol/L (3.5-5.1)
[2022-09-20 16:45] VITALS: PULSE 91; RESP 18; O2SAT 98
[2022-09-20 16:55] LABS: Partial Thromboplastin Time 39.2 SECONDS (23.9-36.7)
[2022-09-20 17:47] VITALS: BP 138/88; PULSE 88; RESP 18; O2SAT 98
--- NOTE | 2022-09-20 17:47 | PC.NURSE ---
PROVIDER NOTIFIED OF PATIENT ATTEMPTS TO VOID FOR UA COLLECTION. PROVIDER DOES NOT WANT TO STRAIGHT CATH PATIENT AT THIS TIME. CONTINUE TO ENCOURAGE FLUID AND WAIT FOR UA.
[2022-09-20 18:23] VITALS: PULSE 93; RESP 18; O2SAT 97
[2022-09-20 18:42] LABS: Bilirubin Urine Neg (Negative); Blood Urine 2+ (Negative); Glucose Urine UA Norm (Normal); Ketones Urine Negative (Negative); Leukocyte Esterase Urine Negative (Negative); Nitrate Urine Negative (Negative); Protein Urine Trace (Negative); Urine Appearance SL Hazy (CLEAR); Urine Color Yellow (Yellow); Urobilinogen Urine Neg (Negative); pH Urine 5 (5-7)
[2022-09-20 18:57] LABS: Add Urine Culture? No; Bacteria Urine 1+ /hpf; RBC Urine 0-4 /hpf (0-2); Squamous Epithelial Cell Urine 25-40 /hpf (0-5); WBC Urine 0-4 /hpf (0-5)
[2022-09-20 19:16] VITALS: BP 136/83; PULSE 87; RESP 17; TEMP 36.8; O2SAT 98
== END 2022-09-20 19:14 | disposition home or self-care (01) ==
PROVIDERS: Emergency Provider Family Medicine; PCP Internal Medicine
DX: R53.1 Weakness (principal); R53.83 Other fatigue; Z79.01 Long term (current) use of anticoagulants; I25.10 Atherosclerotic heart disease of native coronary artery without angina pectoris; I10 Essential (primary) hypertension; Z87.891 Personal history of nicotine dependence
CPT/HCPCS: 36415; 51701; 70450; 71045; 80053; 81001; 82550; 85025; 85730; 93005; 99285

== ENCOUNTER → 2022-09-22 10:15 | Outpatient (BNVA) | payer MEDICARE, SELFPAY | PROVIDERS: PCP Internal Medicine; Visit Provider Thoracic Surgery (Cardiothoracic Vascular Surgery) | DX: Z45.02 Encounter for adjustment and management of automatic implantable cardiac defibrillator (principal) | CPT/HCPCS: 99203 ==

== ENCOUNTER 2022-10-13 05:43 | Day surgery (SDC) | payer MEDICARE, SELFPAY ==
[2022-10-12 14:46] VITALS: BMI 28.3
[2022-10-13] VITALS (8 sets, daily range): BP systolic 104–171; BP diastolic 42–101; PULSE 68–72; RESP 15–18; TEMP 36.1–36.6; O2SAT 95–98
[2022-10-13] MEDS: sodium chloride 0.9% 1,000 ML 30 ML IV (06:12)
[2022-10-13 06:21] LABS: Basophils % 0.4 %; Eosinophils # 0.2 10^3/uL (0.0-0.8); Eosinophils % 3.3 %; Hematocrit 40.8 % (37.0-47.0); Hemoglobin 13.3 g/dL (11.5-15.3); Lymphocytes # 1.5 10^3/uL (0.8-4.8); Lymphocytes % 28.8 %; Mean Corpuscular HGB Conc 32.6 g/dL (30.0-36.0); Mean Corpuscular Hemoglobin 35.1 pg (28.0-34.0); Mean Corpuscular Volume 107.7 fl (81-99); Mean Platelet Volume 10.8 fL (7.4-10.4); Monocytes # 0.5 10^3/uL (0.2-0.9); Monocytes % 9.5 %; Nucleated Red Blood Cells % 0 %; Platelet Count 142 10^3/cmm (130-400); Red Blood Count 3.79 10^6/uL (4.1-5.3); Red Cell Distribution Width 13.7 % (12.1-15.1); White Blood Count 5.2 10^3/uL (4.0-10.0)
--- NOTE | 2022-10-13 06:24 | W.PM.OPSUD ---
Surgery/Procedure H&P Update DATE OF PROCEDURE: October 13, 2022 DATE H&P PERFORMED: 09/22/22 H&P UPDATE INFORMATION: I have reviewed H&P completed within last 30 days, I have examined patient prior to procedure and No changes to prior documentation PREOP DIAGNOSIS: AICD at end of service PLANNED PROCEDURE: Operation Date: 10/13/22 07:00 Proposed Procedures p Defibillator Generator Exchange 55004,Z45.02(Not Applicable) - Justin Horn MD
[2022-10-13 06:38] LABS: Anion Gap 15.9 (5-19); Blood Urea Nitrogen 13 mg/dL (8-23); Calcium 8.7 mg/dL (8.5-10.5); Carbon Dioxide 25 mmol/L (22-29); Chloride 105 mmol/L (98-107); Glucose 116 mg/dL (65-115); Osmolality Calculated 295 mOsm/kg (285-295); Potassium 3.9 mmol/L (3.5-5.1); Sodium 142 mmol/L (136-145)
--- NOTE | 2022-10-13 06:42 | P.ANESASSM_ITS ---
Pre-Anesthetic Assessment Height/Weight: Height 1.52 m Weight 65.771 kg Temp Pulse Resp BP Pulse Ox O2 Del Method 98 F 72 16 171/101 98 10/13/22 06:02 10/13/22 06:02 10/13/22 06:02 10/13/22 06:02 10/13/22 06:02 10/13/22 06:02 Preop Diagnosis: AICD at end of service Operation Date: 10/13/22 07:00 Proposed Procedures p Defibillator Generator Exchange 46750,Z45.02(Not Applicable) - Justin Horn MD Familial anesthetic complications: None Was Beta Katlyn taken within 24 hours: Yes Was Clonidine taken within 24 hours: N/A Last intake: Intake Last Liquid Date 10/12/22 Last Liquid Time 18:00 Last Solid Date 10/12/22 Last Solid Time 18:00 Social No alcohol and No tobacco former smoker Exam alert, oriented x 3, clear to auscultation bilaterally and regular rate & rhythm Airway Mallampati: Class II Dentition: false Pulmonary None reported CV/HEM Atrial Fibrillation and Hypertension EF 25% 2018, LCX stent 2012, pacer/defibrillator Anesthetic Plan ASA status: 4 Anesthesia: MAC Risk of > 500 ml blood loss (7ml/kg in children): No Medications/Allergies Home Medications Medication Instructions Recorded Confirmed Last Taken Type alendronate 70 mg tablet 70 mg PO Q7D 11/13/19 10/12/22 10/06/22 History cholecalciferol (vitamin D3) 50 2,000 unit PO DAILY 11/13/19 10/13/22 10/13/22 History mcg (2,000 unit) tablet gabapentin 300 mg capsule 300 mg PO TID 11/13/19 10/13/22 10/12/22 History [id number] tablet 1 tab PO DAILY 11/13/19 10/12/22 10/12/22 History sertraline 50 mg tablet 50 mg PO DAILY 11/13/19 10/12/22 10/12/22 History isosorbide mononitrate 30 mg 30 mg PO DAILY 02/02/20 10/12/22 10/12/22 History tablet,extended release 24 hr simvastatin 20 mg tablet 10 mg PO DAILY 02/02/20 10/12/22 10/12/22 History apixaban 2.5 mg tablet (Eliquis) 2.5 mg PO BID #180 tabs 05/14/22 10/12/22 10/10/22 Rx carvedilol 12.5 mg tablet 6.25 mg PO BID 05/15/22 10/13/22 10/13/22 History furosemide 20 mg tablet 40 mg PO QAM PRN Edema 05/15/22 10/12/22 Unknown History oxybutynin chloride 10 mg 10 mg PO DAILY 09/20/22 10/12/22 10/12/22 History tablet,extended release 24 hr potassium chloride 10 mEq 10 meq PO DAILY PRN if lasix taken 09/22/22 10/12/22 10/12/22 History capsule,extended release ketoconazole 2 % topical cream 1 applic topical BID PRN flares 10/12/22 10/12/22 Unknown History Allergies Allergy/AdvReac Type Severity Reaction Status Date / Time morphine Allergy ADR-Halluci Verified 10/13/22 05:59 nating Current Medications Generic Name Dose Route Start Last Admin Trade Name Freq PRN Reason Stop Dose Admin Sodium Chloride 1,000 mls @ 30 mls/hr 10/13/22 06:00 10/13/22 06:12 Sodium Chloride 0.9% IV 10/14/22 05:59 30 mls/hr .Q24H MARLENE Administration PFSH Anesthesia Medical History Atrial fibrillation CAD (coronary artery disease) Cardiac resynchronization therapy defibrillator (CONSERVATION SCIENCE OFFICER-D) in place HTN (hypertension) Presence of stent in left circumflex coronary artery 2012 Social History Smoking and tobacco status: former smoker Alcohol intake: never Data Anesthesia 10/13/22 06:10 10/13/22 06:10 Short CBC 10/13/22 Range/Units 06:10 WBC 5.2 (4.0-10.0) 10^3/uL Hgb 13.3 (11.5-15.3) g/dL Hct 40.8 (37.0-47.0) % MCV 107.7 H (81-99) fl Plt Count 142 (130-400) 10^3/cmm Neut % (Auto) 58.0 % Neut # (Auto) 3.00 (1.8-7.7) 10^3/uL BMP 10/13/22 06:10 Sodium 142 Potassium 3.9 Chloride 105 Carbon Dioxide 25 BUN 13 Creatinine 0.9 Glucose 116 H Calcium 8.7 Cardiac Studies: No Data to Display
[2022-10-13] MEDS: ceFAZolin 1,000 mg SDV 1000 MG (06:51)
[2022-10-13] MEDS: lidocaine 2% INJ 20 mL ×2 (06:51→07:32)
[2022-10-13] MEDS: ceFAZolin 2,000 MG in sodium chloride 0.9% (plus) 50 ML 100 MG IV (07:02)
[2022-10-13] MEDS: ceFAZolin 1,000 mg SDV 1000 MG IRRIGATION (07:31)
--- NOTE | 2022-10-13 08:30 | PM.OP ---
Operative Report Date of procedure: October 13, 2022 Pre-op diagnosis: Preop Diagnosis AICD at end of service Post-op diagnosis: same Procedure done: AICD generator replacement Implants: Medtronic AICD generator Specimens removed/disposition: [place] AICD generator Surgeon: Justin Horn Anesthesia: MAC and Local Complications: None Condition: stable Disposition: same day Brief History: Ms. Martinez is an 82-year-old female with congestive heart failure and previously placed pacemaker which was subsequent upgraded to a [place] AICD generator including atrial, RV lead, and LV lead in the coronary sinus. This generator is now at end of service. She received outpatient evaluation for sepsis scheduled for generator exchange today, with a Medtronic model. Details of risk of the procedure were carefully reviewed. Proper consents have been reviewed and signed. It is noted that she is pacing dependent. Procedure: Ms. Martinez was taken to the operating room theater and carefully positioned on the OR table. She underwent IV conscious sedation with anesthesia monitoring. Her anterior chest wall was subsequently sterilely prepped and draped including placement of external defibrillator pads. Appropriate timeout was performed and completed and confirmed by all present. 1% lidocaine was infiltrated through the subtendinous layer beneath the prior surgical scar. #15 scalpel was utilized to incise the skin and the subcu dissection was performed with Metzenbaum scissors, forceps, and electrocautery. This was continued down until we reached the pseudocapsule which was carefully opened with a #15 scalpel blade. This was performed medially and laterally with care taken to avoid injury pacing leads. The generator was then delivered from the pseudocapsule. The new Medtronic generator was brought into the field. Subsequently, we sequentially replaced from the current connections to the old generator to the new generator the LV lead, RV lead, and RA lead. Cardiac standstill during initial lead exchange was less than 10 seconds. She recovered spontaneously without any change in respirations. Once the new generator was connected to the old leads, the old generator was removed from the field. Wound was carefully irrigated with antibiotic solution. The new generator was then placed back in through the pseudocapsule where it did fit appropriately. Leads were carefully position. The wound was then closed with 2 layers of 3-0 Vicryl suture. Skin was reapproximated in a subcuticular manner with 4-0 Monocryl suture. Sterile pressure dressing was applied. Ms. Martinez was awakened from IV conscious sedation then transported back to the outpatient surgery department. We are attempting to contact her [id number] for an update.
--- NOTE | 2022-10-13 08:45 | P.PCN_ITS ---
PACU note Narrative: VSS, Good respiratory effort, report to WATER PURIFIER Exam: awake
--- NOTE | 2022-10-13 08:45 | PM.PACU ---
PACU note Narrative: VSS, Good respiratory effort, report to EXTRACTIVE METALLURGIST Exam: awake
--- NOTE | 2022-10-13 16:06 | ANE.PACU2 ---
Inpatient post-anesthesia follow up: Airway intact: Yes Vital signs: Temperature 97.8 F Pulse Rate 70 Respiratory Rate 15 Blood Pressure 145/88 Pulse Oximetry 97 Oxygen Delivery Me thod Room Air Oxygen Flow Rate 6 Fraction of Inspir ed Oxygen Hydration adequate: Yes Nausea and vomiting: No Pain level: 1 Mental status: Baseline
== END 2022-10-13 09:40 | disposition home or self-care (01) ==
PROVIDERS: PCP Internal Medicine; Visit Provider Thoracic Surgery (Cardiothoracic Vascular Surgery)
PROC: 0JPT0PZ Removal of Cardiac Rhythm Related Device from Trunk Subcutaneous Tissue and Fascia, Open Approach (ICD-10-PCS; CPT 33263; principal; 2022-10-13 07:00)
DX: Z45.02 Encounter for adjustment and management of automatic implantable cardiac defibrillator (principal); Z87.891 Personal history of nicotine dependence; I48.91 Unspecified atrial fibrillation; I10 Essential (primary) hypertension; Z95.5 Presence of coronary angioplasty implant and graft; I25.10 Atherosclerotic heart disease of native coronary artery without angina pectoris
CPT/HCPCS: 33263; 36415; 80048; 85025; C1882; J0690; J2370; J2704; J3010; J7030

== ENCOUNTER → 2022-10-23 10:48 | Outpatient (BNVA) | payer MEDICARE, SELFPAY | PROVIDERS: PCP Internal Medicine; Visit Provider Internal Medicine Cardiovascular Disease | DX: I11.0 Hypertensive heart disease with heart failure (principal); I50.9 Heart failure, unspecified; Z87.891 Personal history of nicotine dependence; Z95.810 Presence of automatic (implantable) cardiac defibrillator; I25.10 Atherosclerotic heart disease of native coronary artery without angina pectoris; I87.2 Venous insufficiency (chronic) (peripheral); Z95.5 Presence of coronary angioplasty implant and graft; I48.19 Other persistent atrial fibrillation | CPT/HCPCS: 99213 ==

== ENCOUNTER → 2022-11-13 09:01 | Outpatient (BNVA) | payer MEDICARE, SELFPAY | PROVIDERS: PCP Internal Medicine; Visit Provider Nurse Practitioner Family | DX: I11.0 Hypertensive heart disease with heart failure (principal); I50.9 Heart failure, unspecified; Z95.810 Presence of automatic (implantable) cardiac defibrillator; I25.10 Atherosclerotic heart disease of native coronary artery without angina pectoris; I48.19 Other persistent atrial fibrillation; Z79.01 Long term (current) use of anticoagulants; Z87.891 Personal history of nicotine dependence | CPT/HCPCS: 99214 ==

== ENCOUNTER 2022-12-04 08:09 | Outpatient (CLI) | payer MEDICARE, SELFPAY ==
--- NOTE | 2022-12-04 09:24 | MM_ITS ---
WS: [id number] DIAGNOSTIC BILATERAL DIGITAL BREAST TOMOSYNTHESIS MAMMOGRAPHY WITH CAD HISTORY: HX OF BR CA COMPARISON: 11/19/2021, 09/16/2020 TECHNIQUE: Bilateral craniocaudad, mediolateral oblique, and mediolateral views are submitted with to mosynthesis and SM. Computer aided detection utilized. Breast composition: There are scattered areas of fibroglandular density. Postsurgical changes and lum pectomy LEFT breast. There is mild thickening of the trabecular pattern. No new or suspicious masses or calcifications. Stable appearance of each breast. MM/[place] [id number] IMPRESSION: BI-RADS: 2-Benign FOLLOW UP: 1 Year Follow-up
== END 2022-12-04 08:10 | disposition home or self-care (01) ==
LOC: RAD 08:12
PROVIDERS: PCP Internal Medicine; Visit Provider Internal Medicine
DX: Z85.3 Personal history of malignant neoplasm of breast (principal)
CPT/HCPCS: 77062; G0279

== ENCOUNTER 2023-01-07 16:11 | Emergency (ER) | payer MEDICARE, SELFPAY ==
[2023-01-07 16:58] VITALS: BP 208/102; PULSE 88; RESP 19; TEMP 36.4; O2SAT 98; BMI 27.3
--- NOTE | 2023-01-07 18:15 | XRR_ITS ---
PROCEDURE INFORMATION: Exam: XR Left Shoulder Exam date and time: 01/07/2023 7:24 PM Age: 82 years old Clinical indication: Injury or trauma; Fall; Blunt trauma (contusions or hematomas); Shoulder; Left TECHNIQUE: Imaging protocol: Radiologic exam of the left shoulder. Views: 2 or more views. COMPARISON: CR (CHEST, ) 01/07/2023 7:19 PM FINDINGS: Tubes, catheters and devices: Multi lead left pacemaker. Bones/joints: Inferior subluxation of the left glenohumeral joint, likely indicating a large hemarthrosis. Impacted displaced fracture through the superomedial humeral head. There is cortical step-off of 7 mm along the superior humeral head. Mild degenerative changes of the glenohumeral joint. Soft tissues: Normal. XR/XR shoulder LT min 2V* [id number] IMPRESSION: 1. Impacted displaced fracture in the left humeral head. 2. Probable left glenohumeral joint hemarthrosis.
--- NOTE | 2023-01-07 18:15 | CTR_ITS ---
PROCEDURE INFORMATION: Exam: CT Head Without Contrast Exam date and time: 01/07/2023 7:35 PM Age: 82 years old Clinical indication: Injury or trauma; Fall; Blunt trauma (contusions or hematomas); Additional info: Fall on eliquis TECHNIQUE: Imaging protocol: Computed tomography of the head without contrast. Radiation optimization: All CT scans at this facility use at least one of these dose optimization techniques: automated exposure control; mA and/or kV adjustment per patient size (includes targeted exams where dose is matched to clinical indication); or iterative reconstruction. REPORTING DATA: Count of CT and Cardiac NM exams in prior 12 months: This patient has received [address] and 0 known cardiac nuclear medicine studies in the 12 months prior to the current study. COMPARISON: CT head wo con* [id number] 09/20/2022 3:34 PM RADIATION DOSE METRICS: Total DLP (mGy-cm): 929 FINDINGS: Brain: Moderate cortical volume loss. Mild-moderate hypodensities in supratentorial periventricular and subcortical white matter, consistent with microangiopathy. No intracranial hemorrhage. Cerebral ventricles: No ventriculomegaly. Paranasal sinuses: Small air-fluid levels versus mucosal thickening in the right sphenoid sinus and in a in the anterior left ethmoid air cell. The other sinuses are clear. Mastoid air cells: Visualized mastoid air cells are well aerated. Orbital cavities: Prior cataract surgery. Bones/joints: The bones appear intact. No fracture visualized. Soft tissues: Unremarkable. Vasculature: No hyperdense artery. CT/CT head wo con* [id number] IMPRESSION: 1. No acute intracranial abnormality.
--- NOTE | 2023-01-07 19:04 | XRR_ITS ---
PROCEDURE INFORMATION: Exam: XR Chest Exam date and time: 01/07/2023 7:19 PM Age: 82 years old Clinical indication: Injury or trauma; Fall; Other: Pain; Additional info: Left rib pain TECHNIQUE: Imaging protocol: Radiologic exam of the chest. Views: 1 view. COMPARISON: CR (CHEST, ) 09/20/2022 3:21 PM FINDINGS: Tubes, catheters and devices: Intact multi lead left subclavian pacemaker. Lungs: Minimal atelectasis in the left lung base. The lungs are otherwise clear. Pleural spaces: Unremarkable. No pleural effusion. No pneumothorax. Heart/Mediastinum: Stable mild cardiomegaly. Bones/joints: Impacted displaced fracture in the left humeral head with inferior subluxation. Severe degenerative changes of the right glenohumeral joint. Old healed right humerus diaphyseal fracture. XR/XR chest 1V portable [id number] IMPRESSION: 1. Left humeral head fracture. 2. No acute pulmonary finding. Fluid
--- NOTE | 2023-01-07 19:04 | XRR_ITS ---
PROCEDURE INFORMATION: Exam: XR Left Humerus Exam date and time: 01/07/2023 7:27 PM Age: 82 years old Clinical indication: Injury or trauma; Fall; Blunt trauma (contusions or hematomas); Arm, lower; Left TECHNIQUE: Imaging protocol: Radiologic exam of the left humerus. Views: 2 or more views. COMPARISON: CR (CHEST, ) 01/07/2023 7:24 PM FINDINGS: Tubes, catheters and devices: Multi lead left pacemaker. Bones/joints: Inferior subluxation of the left humeral head, likely indicating a hemarthrosis. Impacted displaced fracture through the superomedial humeral head. There is cortical step-off of 7 mm along the superior humeral head. Mild degenerative changes of the glenohumeral joint. Soft tissues: Normal. XR/[place] [id number] IMPRESSION: 1. Impacted displaced fracture in the right humeral head. 2. Probable left glenohumeral joint hemarthrosis.
--- NOTE | 2023-01-07 19:05 | ED_ITS ---
HPI - Fall General: Chief Complaint: Fall Stated Complaint: left shoulder pain Time Seen by Provider: 01/07/23 18:54 Source: patient and family Mode of arrival: ambulatory Limitations: no limitations History of Present Illness: This patient was transported to the emergency department by her family. She apparently had a ground-level fall at home while she was alone earlier today. She states that she tripped and fell striking her left shoulder and upper arm. She is uncertain if she hit her head. She denies any syncope, palpitations that preceded her fall. She is right-handed. She complains of pain in her left arm that radiates into her back. She does take Eliquis because of atrial fibrilla tion. complaint: fall Fall from: standing Fall witnessed: no Place fall occurred: home Loss of consciousness: None Location of injury - extremities: Left: shoulder and arm Associated symptoms-after fall: Denies chest pain, headache(s) or neck pain Review of Systems Const: Denies: fever(s) or chills Eyes: Denies: change in vision ENMT: Denies: throat pain or odynophagia Card: Reports: irregular heart rhythm; Denies: chest pain, syncope or pre-syncope Resp: Denies: dyspnea, productive cough or non-productive cough GI: Denies: nausea, vomiting or diarrhea : Denies: flank pain, difficulty voiding or dysuria Musc: Reports: extremity pain; Denies: neck pain, back pain or extremity swelling Skin/Breast: Denies: rash or pruritus Neuro: Denies: headache(s), numbness in extremities or weakness in extremities Krishna/Lymph: Reports: easy bruising PFS ED PFSH: Medical History Atrial fibrillation CAD (coronary artery disease) Cardiac resynchronization therapy 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 She answers questions appropriately. Const: COMMON NORMALS: average body habitus, patient oriented x3, no limitations and alert GENERAL APPEARANCE: cooperative and comfortable ORIENTATION/CONSCIOUSNESS: Yes awake HENMT: COMMON NORMALS: normocephalic, atraumatic, Normal nasal mucous membranes and turbinates present, moist oral mucous membranes and oropharynx normal HEAD & SCALP: normocephalic and atraumatic NOSE: Normal nasal mucous membranes and turbinates present Eye: COMMON NORMALS: Equal, round and reactive pupils present, EOMs intact bilaterally and conjunctivae normal CONJUNCTIVA: Yes conjunctivae normal PUPIL: Yes Equal, round and reactive pupils present Neck/C-Spine: COMMON NORMALS: full ROM CERVICAL SPINE: Yes cervical ROM normal, No Cervical spine tenderness, No step off deformity, No Paracervical muscle tenderness, No Paracervical spasm and No Trapezius muscle tenderness OTHER: She is able to actively range her head 45 degrees left and right forward bend 15 degrees, back pain 15 degrees without any discomfort. No midline tenderness or step-off. Chest: COMMONS NORMALS: normal inspection of the chest Resp: COMMON NORMALS: normal respiratory effort, No use of accessory muscles and clear to auscultation bilaterally AUSCULTATION: clear to auscultation bilaterally Cardio: COMMON NORMALS: regular rate, No murmurs present (Cardio) and Peripheral pulses 2+ throughout RATE: regular rate PERIPHERAL PULSES: Peripheral pulses 2+ throughout GI: COMMON NORMALS: Normal to inspection, nondistended, normoactive bowel sounds present, Soft to palpation and non-tender PALPATION: Yes Soft to palpation : COMMON NORMALS: Yes no CVA tenderness BLADDER/KIDNEY EXAM: Yes no CVA tenderness Back/Pelvis: COMMON NORMALS: no CVA tenderness BACK IMAGE (FEMALE): 1. Area of tenderness Extremity: COMMON NORMALS: capillary refill normal, no calf tenderness and no pedal edema NARRATIVE EXTREMITY EXAM: Extremity urine examination reveals lower extremities to be unremarkable for any deformity. She has normal range of motion at the ankle knee and hip bilaterally. Right upper extremity has normal range of motion without any deformity. No tenderness. Left upper extremities remarkable in that she has tenderness and restricted motion at the left shoulder. The left elbow has normal range of motion left wrist has normal range of motion. No deformity. LEFT UPPER EXTREMITY: Yes shoulder joint Neuro: COMMON NORMALS: patient oriented x3, moves all extremities and no focal motor deficits SENSORIUM/ORIENTATION: Yes alert CRANIAL NERVES: Yes CN normal except as noted Skin: COMMON NORMALS: no rashes or lesions noted and no wounds GENERAL SKIN EXAM: no rashes or lesions noted Course Reevaluation(s): Reevaluation #1: Patient remained stable. No new or focal findings other than at initial examin ation at this time. Reviewed current findings with patient and family members and expected course. Time: 20:30 Vital Signs: Vital signs: Vital Signs Temperature 97.6 F 01/07/23 16:58 Pulse Rate 88 01/07/23 16:58 Respiratory Rate 19 H 01/07/23 16:58 Blood Pressure 208/102 01/07/23 16:58 Pulse Oximetry 98 01/07/23 16:58 Oxygen Delivery Me thod Room Air 01/07/23 16:58 MDM - Fall Medical Decision Making This 82-year-old lady who had a ground-level fall stumbling and falling on her left shoulder and side. There was no history of loss of consciousness but it is was an unwitnessed fall and so it is unclear whether she did in fact strike her head. Had a prior history of taking Eliquis but has not been taking that recently due to her progressive dementia. Clinical examination reveals her to be alert. She had no cervical spine or axial spine tenderness. She did have tenderness in her left glenohumeral joint region with decreased range of motion. No other focal findings on examination. Concern was possible closed head injury given the questionable history of the fall. Certainly did not suggest syncope etc. given her history. Imaging was obtained to ensure no intracranial hemorrhage which was reassuring. Chest x-ray was also reassuring without any evidence of an obvious pneumothorax, rib fractures etc. Her left shoulder and humeral films did reveal an impacted left humerus head fracture. At this point no evidence of other injury other than her humeral head impacted fracture. Plan on immobilization of the left shoulder using Tylenol, ice, hydrocodone if needed for severe pain and orthopedic follow-up. This was all reviewed with the family members in detail. Again she is not taking the Eliquis which I think is appropriate in this case. Lab Data I reviewed the patient's lab results. Radiology Impressions Head CT 01/07/23 18:15 IMPRESSION: 1. No acute intracranial abnormality. Shoulder X-Ray 01/07/23 18:15 IMPRESSION: 1. Impacted displaced fracture in the left humeral head. 2. Probable left glenohumeral joint hemarthrosis. Chest X-Ray 01/07/23 19:04 IMPRESSION: 1. Left humeral head fracture. 2. No acute pulmonary finding. Fluid Humerus X-Ray 01/07/23 19:04 IMPRESSION: 1. Impacted displaced fracture in the right humeral head. 2. Probable left glenohumeral joint hemarthrosis. ADDENDUM: 01/07/232005 IMPRESSION: 1. Impacted displaced fracture in the LEFT humeral head. Discharge Plan Discharge Patient Disposition: Home Clinical Impression: Fracture, humerus, head Condition: Stable Prescriptions: New hydrocodone-acetaminophen 5-325 mg tablet 1 tab PO Q12H PRN (Reason: pain) Qty: 10 0RF Held Eliquis 2.5 mg tablet 2.5 mg PO BID Qty: 180 2RF Hold Instructions: until reviewed by primary care No Action isosorbide mononitrate 30 mg tablet extended release 24 hr 30 mg PO DAILY sertraline 50 mg tablet 50 mg PO DAILY cholecalciferol (vitamin D3) 2,000 unit tablet 2,000 unit PO DAILY [id number] Tablet 1 tab PO DAILY alendronate 70 mg tablet 70 mg PO Q7D Rx Instructions: on Tuesdays simvastatin 20 mg tablet 10 mg PO DAILY furosemide 20 mg tablet 40 mg PO QAM PRN (Reason: Edema) potassium chloride 10 mEq capsule, extended release 10 meq PO DAILY PRN (Reason: if lasix taken) gabapentin 300 mg capsule 300 mg PO BID carvedilol 12.5 mg tablet 6.25 mg PO BID Rx Instructions: must administer with a meal/food oxybutynin chloride 10 mg tablet extended release 24hr 10 mg PO DAILY ketoconazole 2 % cream 1 applic topical BID PRN (Reason: flares) Rx Instructions: Apply to affected areas and skin folds x3 weeks. May use as needed for fl molina. Discharge Orders: Discharge ED (Routine); Ordered 01/07/23 Ordered By: Delfino Willson Referrals: Germain Hernandez MD [Physician] - 7-10 days Miguel Moser DO [Primary Care Provider] - Discharge Activity: Limit activity as instructed Patient Instructions: Fractures - Humerus, Opioid Safety, Pain Management Activity Restrictions/Additional Instructions: Use sling as instructed to help with the pain. You may also use ice pack to that shoulder for 10 to 15 minutes to help with pain. We have also provided a prescription for hydrocodone that if Tylenol does not control your pain you may use 1/2 to 1 pill twice daily. You will be contacted for a follow-up appointment with the orthopedic surgeon to be seen in the next 7 to 10 days. If you develop any new or worsening symptoms return to this or the nearest emergency department for reevaluation. Coding Level of Care Code [facility]
--- NOTE | 2023-01-08 09:41 | DCPLANNER ---
Addendum entered by Becky Grossman 01/22/23 10:39: Patient had a follow up appointment scheduled with ortho - patient did attend appointment. Addendum entered by Becky Grossman 01/12/23 11:36: Patient has a follow up appointment scheduled for Friday, January 13, [address]23 at 2:[address] Hernandez at ortho. Addendum entered by Becky Grossman 01/08/23 12:29: truck service manager received the following message from the ortho clinic regarding follow up appointment: Attempted to contact patient - I was unable to get ahold of her, her v/m box was full, but I will be mailing her a letter. We will try and get her in Wednesday with Dr. Hernandez when she calls back! Original Note: truck service manager had message to schedule a follow up appointment for patient with ortho. truck service manager sent patients information to the front office staff at ortho. Patients information will be printed and reviewed. Clinic will call patient with appointment information.
== END 2023-01-07 20:48 | disposition home or self-care (01) ==
PROVIDERS: Emergency Provider Emergency Medicine; PCP Internal Medicine
DX: S42.292A Other displaced fracture of upper end of left humerus, initial encounter for closed fracture (principal); Z95.810 Presence of automatic (implantable) cardiac defibrillator; I10 Essential (primary) hypertension; Z87.891 Personal history of nicotine dependence; W18.39XA Other fall on same level, initial encounter
CPT/HCPCS: 70450; 71045; 71046; 73030; 73060; 99284

== ENCOUNTER 2023-01-09 10:17 | Observation (INO) | payer MEDICARE, SELFPAY ==
[2023-01-09] VITALS (12 sets, daily range): BP systolic 87–187; BP diastolic 35–103; PULSE 69–72; RESP 16–18; TEMP 36.8; O2SAT 92–98
--- NOTE | 2023-01-09 10:25 | XRR_ITS ---
PROCEDURE INFORMATION: Exam: XR Chest Exam date and time: 01/09/2023 10:35 AM Age: 82 years old Clinical indication: Cough; Additional info: Dyspnea/cough TECHNIQUE: Imaging protocol: Radiologic exam of the chest. Views: 1 view. COMPARISON: CR (CHEST, ) 01/07/2023 7:19 PM FINDINGS: Lungs: Enlarging right paratracheal mass like density measuring 3 cm possibly vascular in nature which should be clarified on CT exam. Lung hancock otherwise clear. Pleural spaces: Unremarkable. No pleural effusion. No pneumothorax. Heart/Mediastinum: Cardiac silhouette is mild-moderately enlarged. There is pulmonary vascular distribution indicating elevated central venous pressure. There are pacemaker wires in ICD monitors extending to the right atrium and right ventricle unchanged in location. Bones/joints: Chronic deformity both shoulder joints likely due to combination of posttraumatic and degenerative changes. XR/XR chest 1V portable [id number] IMPRESSION: 1. Cardiomegaly with elevated central venous pressure. 2. Enlarging right paratracheal opacity of uncertain significance. Follow-up nonemergent CT chest recommended for clarification.
--- NOTE | 2023-01-09 10:35 | XRR_ITS ---
PROCEDURE INFORMATION: Exam: XR Left Shoulder Exam date and time: 01/09/2023 10:38 AM Age: 82 years old Clinical indication: Pain and injury or trauma; Fall; Blunt trauma (contusions or hematomas); Shoulder; Left TECHNIQUE: Imaging protocol: Radiologic exam of the left shoulder. Views: 2 or more views. COMPARISON: CR (CHEST, ) 01/07/2023 7:24 PM FINDINGS: Tubes, catheters and devices: Pacemaker seen projecting over the left chest. Bones/joints: Unchanged fracture deformity of the humeral head with inferior glenohumeral joint subluxation. There is mild degenerative changes of the acromioclavicular joint. Soft tissues: Normal. XR/XR shoulder LT min 2V* [id number] IMPRESSION: Unchanged fracture deformity of the humeral head with inferior glenohumeral joint subluxation.
--- NOTE | 2023-01-09 10:39 | W.ED.WEAKNES ---
Documented by User: George Nelson DO 01/11/23 11:10 HPI - Weakness General: Chief complaint: Weakness Stated complaint: WEAKNESS Time Seen by Provider: 01/09/23 10:24 Source: patient Mode of arrival: EMS History of Present Illness: 82-year-old female presents to the emergency room complaining of left shoulder pain. She was seen a few days ago had a proximal left humerus fracture. She also has some dementia. She is not wearing a sling on arrival here. She denies any chest pain. She has a known history of breast cancer. She also has a history of dementia is not able to give significant amounts of history. Is confused about exactly why she is here she repeatedly goes back to the left arm and makes comments about chest pain but no shortness of breath she denies abdominal pain dysuria urgency or frequency. Complaint: focal weakness (Left shoulder) Relieving factors: none Exacerbating factors: none Associated symptoms: Reports chest pain and confusion; Denies chills, melena, decreased appetite, diaphoresis, dysuria, easy bruising, fever(s), headache(s), myalgias, nausea, rash, short of breath, syncope or vomiting Review of Systems Const: Denies: fever(s), chills or diaphoresis Card: Reports: chest pain; Denies: syncope GI: Denies: abdominal pain, nausea, vomiting or melena : Denies: dysuria, urinary frequency or urinary urgency Musc: Denies: back pain Neuro: Reports: confusion; Denies: headache(s) Krishna/Lymph: Denies: easy bruising [facility] ED PFSH: Medical History Atrial fibrillation CAD (coronary artery disease) Cardiac resynchronization therapy defibrillator (DIE DRAWING CHECKER-D) in place HTN (hypertension) Presence of stent in left circumflex coronary artery 2012 Surgical History History of automatic internal cardiac defibrillator (AICD) Family History (Updated 01/09/23 @ 23:08 by Jose Vasquez MD) Mother Breast cancer Other CAD (coronary artery disease) Social History Smoking and tobacco status: former smoker Alcohol intake: never Substance/Drug Use: never Physical Exam Const: GENERAL APPEARANCE: cooperative ORIENTATION/CONSCIOUSNESS: Yes awake HENMT: COMMON NORMALS: normocephalic, atraumatic and hearing grossly normal bilaterally HEAD & SCALP: normocephalic and atraumatic Resp: COMMON NORMALS: normal respiratory effort, No retractions, No use of accessory muscles and clear to auscultation bilaterally AUSCULTATION: clear to auscultation bilaterally Cardio: COMMON NORMALS: regular rate, regular rhythm and No murmurs present (Cardio) RATE: regular rate RHYTHM: regular rhythm GI: COMMON NORMALS: Soft to palpation and No hepatosplenomegaly present AUSCULTATION: Yes normoactive bowel sounds PALPATION: Yes Soft to palpation, No Tenderness to palpation present (GI), No Guarding due to palpation present (GI) and Yes No hepatosplenomegaly present Extremity: OTHER: Mild swelling and deformity of the proximal left humerus tender to palpation. Skin: COMMON NORMALS: no rashes or lesions noted GENERAL SKIN EXAM: no rashes or lesions noted Course Vital Signs: Vital signs: Vital Signs Temperature 98.1 F 01/11/23 08:00 Pulse Rate 73 01/11/23 08:00 Respiratory Rate 18 01/11/23 08:00 Blood Pressure 132/83 01/11/23 08:00 Pulse Oximetry 95 01/11/23 08:00 Oxygen Delivery Me thod Room Air 01/11/23 08:00 Oxygen Flow Rate 2 01/10/23 20:00 MDM - Weakness Medical Decision Making Care signed out to Dr. Mcdowell at change of shift. See final notes for diagnosis and disposition. 82-year-old female checked out to me by the previous physician at shift change. This lady has been weak, unable to care for herself, and family has been having difficulty caring for her. CBC is not remarkable. BMP is not remarkable. Her vitals have been stable. Humerus x-ray shows a left humeral fracture that is stable from prior. Chest x-ray showed a possible enlarging right paratracheal opacity and CT was recommended. CT was attempted several times, with continuing trouble with IV access. Once IV access was properly obtained, CTA shows no paratracheal mass. Trace pleural effusions. No PE. Compression fractures are present. No acute pulmonary findings. Patient is unable to ambulate without help. She is requiring significant help for transfers. Her left upper extremity is in a sling. Family cannot care for her at this point. We discussed options. What we can offer at this point is an observation and further assessment. Hospitalist has seen the patient in the ER. Medical Records I reviewed the patient's medical records. Lab Data I reviewed the patient's lab results. 01/10/23 03:57 01/10/23 03:57 Radiology Impressions Chest X-Ray 01/09/23 10:25 IMPRESSION: 1. Cardiomegaly with elevated central venous pressure. 2. Enlarging right paratracheal opacity of uncertain significance. Follow-up nonemergent CT chest recommended for clarification. Shoulder X-Ray 01/09/23 10:35 IMPRESSION: Unchanged fracture deformity of the humeral head with inferior glenohumeral joint subluxation. Humerus X-Ray 01/09/23 10:40 IMPRESSION: Stable appearance of displaced comminuted fracture left humeral head and neck as discussed above. Chest CTA 01/09/23 16:30 IMPRESSION: 1. No evidence for pulmonary embolus. 2. No acute pulmonary finding. 3. Trace pleural effusions. 4. Multiple age indeterminate thoracic compression fractures. COMMENTS: Consistent with the [place] [employer] [employer]'s Incidental Findings Committee white paper (J Am Tom Radiol 2018): Any incidental renal lesion less than 1 cm or classified as too small to characterize, or any incidental cystic renal lesion characterized as simple-appearing, is likely benign. No follow-up imaging is recommended for these lesions per consensus recommendations based on imaging criteria. Head CT 01/09/23 23:48 IMPRESSION: 1. No acute intracranial abnormality. 2. Moderate age-related changes. Hip/Pelvis X-Ray 01/09/23 23:48 IMPRESSION: No acute findings. Laboratory Results WBC 8.4 10^3/uL (4.0-10.0) 01/09/23 11:37 RBC 3.33 10^6/uL (4.1-5.3) L 01/09/23 11:37 Hgb 11.8 g/dL (11.5-15.3) 01/09/23 11:37 Hct 36.0 % (37.0-47.0) L 01/09/23 11:37 MCV 108.1 fl (81-99) H 01/09/23 11:37 MCH 35.4 pg (28.0-34.0) H 01/09/23 11:37 MCHC 32.8 g/dL (30.0-36.0) 01/09/23 11:37 RDW 13.2 % (12.1-15.1) 01/09/23 11:37 Plt Count 105 10^3/cmm (130-400) L 01/09/23 11:37 MPV 10.7 fL (7.4-10.4) H 01/09/23 11:37 Neut % (Auto) 81.7 % 01/09/23 11:37 Lymph % (Auto) 10.0 % 01/09/23 11:37 Guthrie % (Auto) 7.2 % 01/09/23 11:37 Eos % (Auto) 0.4 % 01/09/23 11:37 Baso % (Auto) 0.2 % 01/09/23 11:37 Neut # (Auto) 6.88 10^3/uL (1.8-7.7) 01/09/23 11:37 Lymph # (Auto) 0.8 10^3/uL (0.8-4.8) 01/09/23 11:37 Guthrie # (Auto) 0.6 10^3/uL (0.2-0.9) 01/09/23 11:37 Eos # (Auto) 0.0 10^3/uL (0.0-0.8) 01/09/23 11:37 Baso # (Auto) 0.0 10^3/uL (0.0-0.1) 01/09/23 11:37 Nucleated RBC % (auto) 0 % 01/09/23 11:37 Nucleated RBCs # 0.0 /100WBC 01/09/23 11:37 Sodium 140 mmol/L (136-145) 01/09/23 11:37 Potassium 3.7 mmol/L (3.5-5.1) 01/09/23 11:37 Chloride 105 mmol/L (98-107) 01/09/23 11:37 Carbon Dioxide 25 mmol/L (22-29) 01/09/23 11:37 Anion Gap 13.7 (5-19) 01/09/23 11:37 BUN 20 mg/dL (8-23) 01/09/23 11:37 Creatinine 1.1 mg/dL (0.5-0.9) H 01/09/23 11:37 GFR Calculation Not Reportable 01/09/23 11:37 Glucose 104 mg/dL (65-115) 01/09/23 11:37 Estimat Average Glucose 100 01/09/23 03:57 Hemoglobin A1c 5.1 % (4.0-6.0) 01/09/23 03:57 Calculated Osmolality 293 mOsm/kg (285-295) 01/09/23 11:37 Lactic Acid 1.8 mmol/L (0.5-2.2) 01/09/23 11:37 Calcium 8.4 mg/dL (8.5-10.5) L 01/09/23 11:37 Total Bilirubin 1.5 mg/dL (0.15-1.2) H 01/09/23 11:37 AST 14 U/L (0-32) 01/09/23 11:37 ALT 9 U/L (0-33) 01/09/23 11:37 Alkaline Phosphatase 51 U/L (35-105) 01/09/23 11:37 Ammonia 23 umol/L (11-51) 01/09/23 03:57 Troponin T Baseline 19 ng/L (0-10) H 01/09/23 11:37 Troponin T 120 Minute 17.91 ng/L (0-10) H 01/09/23 14:15 Delta Troponin T -1.09 ABS# (0-10) L 01/09/23 14:15 Troponin T Hi Sens 6Hr 19.28 ng/L (0-10) H 01/09/23 03:57 Troponin T Hi Sens 6Hr Delta 0.28 ng/L (0-12) 01/09/23 03:57 Total Protein 6.0 g/dL (6.6-8.7) L 01/09/23 11:37 Albumin 3.3 g/dL (3.5-5.2) L 01/09/23 11:37 Globulin 2.7 g/dL (1.3-4.6) 01/09/23 11:37 Triglycerides 109 mg/dL (0-150) 01/09/23 03:57 Cholesterol 127 mg/dL (0-200) 01/09/23 03:57 LDL Cholesterol, Calc 52 mg/dL (50-129) 01/09/23 03:57 HDL Cholesterol 53 mg/dL (60-100) L 01/09/23 03:57 LDL/HDL Ratio 0.98 RATIO (0.00-3.22) 01/09/23 03:57 Cholesterol/HDL Ratio 2.40 mg/dL (0.0-4.40) 01/09/23 03:57 Lipase 9 U/L (13-60) L 01/09/23 11:37 Vitamin B12 1270 pg/mL (232-1245) H 01/09/23 03:57 Folate 6.7 ng/mL (4.8-37.3) 01/09/23 03:57 Procalcitonin 0.15 ng/mL (0-0.5) 01/09/23 11:37 TSH 2.70 uIU/mL (0.27-4.20) 01/09/23 03:57 Urine Color Straw (Yellow) 01/09/23 17:30 Urine Appearance Clear (CLEAR) 01/09/23 17:30 Urine pH 5 (5-7) 01/09/23 17:30 Ur Specific [place] 1.010 (1.005-1.030) 01/09/23 17:30 Urine Protein Neg (Negative) 01/09/23 17:30 Urine Glucose (UA) Norm (Normal) 01/09/23 17:30 Urine Ketones Negative (Negative) 01/09/23 17:30 Urine Blood Neg (Negative) 01/09/23 17:30 Urine Nitrate Negative (Negative) 01/09/23 17:30 Urine Bilirubin Neg (Negative) 01/09/23 17:30 Urine Urobilinogen Norm mg/dL (Negative) 01/09/23 17:30 Ur Leukocyte Esterase Negative (Negative) 01/09/23 17:30 Discharge Plan Discharge Patient Disposition: Admitted As Inpatient Admit Provider: Jose Vasquez Clinical Impression: Fracture, humerus, head, VANDANA (acute kidney injury), Congestive heart failure Condition: Stable Coding Level of Care Code ED Pediatric Associate for Chg Fwd Documented by User: Jeremiah Shayne Jeremias, 01/10/23 05:17 HPI - Weakness General: Chief complaint: Weakness Stated complaint: WEAKNESS Time Seen by Provider: 01/09/23 10:24 PFS ED PFSH: Medical History Atrial fibrillation CAD (coronary artery disease) Cardiac resynchronization therapy defibrillator (DIE DRAWING CHECKER-D) in place HTN (hypertension) Presence of stent in left circumflex coronary artery 2013 Surgical History History of automatic internal cardiac defibrillator (AICD) Family History (Updated 01/09/23 @ 23:08 by Jose Vasquez MD) Mother Breast cancer Other CAD (coronary artery disease) Social History Smoking and tobacco status: former smoker Alcohol intake: never Substance/Drug Use: never Course Vital Signs: Vital signs: Vital Signs Temperature 98.1 F 01/11/23 08:00 Pulse Rate 73 01/11/23 08:00 Respiratory Rate 18 01/11/23 08:00 Blood Pressure 132/83 01/11/23 08:00 Pulse Oximetry 95 01/11/23 08:00 Oxygen Delivery Me thod Room Air 01/11/23 08:00 Oxygen Flow Rate 2 01/10/23 20:00 MDM - Weakness Medical Decision Making 82-year-old female checked out to me by the previous physician at shift change. This lady has been weak, unable to care for herself, and family has been having difficulty caring for her. CBC is not remarkable. BMP is not remarkable. Her vitals have been stable. Humerus x-ray shows a left humeral fracture that is stable from prior. Chest x-ray showed a possible enlarging right paratracheal opacity and CT was recommended. CT was attempted several times, with continuing trouble with IV access. Once IV access was properly obtained, CTA shows no paratracheal mass. Trace pleural effusions. No PE. Compression fractures are present. No acute pulmonary findings. Patient is unable to ambulate without help. She is requiring significant help for transfers. Her left upper extremity is in a sling. Family cannot care for her at this point. We discussed options. What we can offer at this point is an observation and further assessment. Hospitalist has seen the patient in the ER. Lab Data 01/10/23 03:57 01/10/23 03:57 Radiology Impressions Chest X-Ray 01/09/23 10:25 IMPRESSION: 1. Cardiomegaly with elevated central venous pressure. 2. Enlarging right paratracheal opacity of uncertain significance. Follow-up nonemergent CT chest recommended for clarification. Shoulder X-Ray 01/09/23 10:35 IMPRESSION: Unchanged fracture deformity of the humeral head with inferior glenohumeral joint subluxation. Humerus X-Ray 01/09/23 10:40 IMPRESSION: Stable appearance of displaced comminuted fracture left humeral head and neck as discussed above. Chest CTA 01/09/23 16:30 IMPRESSION: 1. No evidence for pulmonary embolus. 2. No acute pulmonary finding. 3. Trace pleural effusions. 4. Multiple age indeterminate thoracic compression fractures. COMMENTS: Consistent with the [place] [employer]'s Incidental Findings Committee white paper (J Am Tom Radiol 2018): Any incidental renal lesion less than 1 cm or classified as too small to characterize, or any incidental cystic renal lesion characterized as simple-appearing, is likely benign. No follow-up imaging is recommended for these lesions per consensus recommendations based on imaging criteria. Head CT 01/09/23 23:48 IMPRESSION: 1. No acute intracranial abnormality. 2. Moderate age-related changes. Hip/Pelvis X-Ray 01/09/23 23:48 IMPRESSION: No acute findings. Laboratory Results WBC 8.4 10^3/uL (4.0-10.0) 01/09/23 11:37 RBC 3.33 10^6/uL (4.1-5.3) L 01/09/23 11:37 Hgb 11.8 g/dL (11.5-15.3) 01/09/23 11:37 Hct 36.0 % (37.0-47.0) L 01/09/23 11:37 MCV 108.1 fl (81-99) H 01/09/23 11:37 MCH 35.4 pg (28.0-34.0) H 01/09/23 11:37 MCHC 32.8 g/dL (30.0-36.0) 01/09/23 11:37 RDW 13.2 % (12.1-15.1) 01/09/23 11:37 Plt Count 105 10^3/cmm (130-400) L 01/09/23 11:37 MPV 10.7 fL (7.4-10.4) H 01/09/23 11:37 Neut % (Auto) 81.7 % 01/09/23 11:37 Lymph % (Auto) 10.0 % 01/09/23 11:37 Guthrie % (Auto) 7.2 % 01/09/23 11:37 Eos % (Auto) 0.4 % 01/09/23 11:37 Baso % (Auto) 0.2 % 01/09/23 11:37 Neut # (Auto) 6.88 10^3/uL (1.8-7.7) 01/09/23 11:37 Lymph # (Auto) 0.8 10^3/uL (0.8-4.8) 01/09/23 11:37 Guthrie # (Auto) 0.6 10^3/uL (0.2-0.9) 01/09/23 11:37 Eos # (Auto) 0.0 10^3/uL (0.0-0.8) 01/09/23 11:37 Baso # (Auto) 0.0 10^3/uL (0.0-0.1) 01/09/23 11:37 Nucleated RBC % (auto) 0 % 01/09/23 11:37 Nucleated RBCs # 0.0 /100WBC 01/09/23 11:37 Sodium 140 mmol/L (136-145) 01/09/23 11:37 Potassium 3.7 mmol/L (3.5-5.1) 01/09/23 11:37 Chloride 105 mmol/L (98-107) 01/09/23 11:37 Carbon Dioxide 25 mmol/L (22-29) 01/09/23 11:37 Anion Gap 13.7 (5-19) 01/09/23 11:37 BUN 20 mg/dL (8-23) 01/09/23 11:37 Creatinine 1.1 mg/dL (0.5-0.9) H 01/09/23 11:37 GFR Calculation Not Reportable 01/09/23 11:37 Glucose 104 mg/dL (65-115) 01/09/23 11:37 Estimat Average Glucose 100 01/09/23 03:57 Hemoglobin A1c 5.1 % (4.0-6.0) 01/09/23 03:57 Calculated Osmolality 293 mOsm/kg (285-295) 01/09/23 11:37 Lactic Acid 1.8 mmol/L (0.5-2.2) 01/09/23 11:37 Calcium 8.4 mg/dL (8.5-10.5) L 01/09/23 11:37 Total Bilirubin 1.5 mg/dL (0.15-1.2) H 01/09/23 11:37 AST 14 U/L (0-32) 01/09/23 11:37 ALT 9 U/L (0-33) 01/09/23 11:37 Alkaline Phosphatase 51 U/L (35-105) 01/09/23 11:37 Ammonia 23 umol/L (11-51) 01/09/23 03:57 Troponin T Baseline 19 ng/L (0-10) H 01/09/23 11:37 Troponin T 120 Minute 17.91 ng/L (0-10) H 01/09/23 14:15 Delta Troponin T -1.09 ABS# (0-10) L 01/09/23 14:15 Troponin T Hi Sens 6Hr 19.28 ng/L (0-10) H 01/09/23 03:57 Troponin T Hi Sens 6Hr Delta 0.28 ng/L (0-12) 01/09/23 03:57 Total Protein 6.0 g/dL (6.6-8.7) L 01/09/23 11:37 Albumin 3.3 g/dL (3.5-5.2) L 01/09/23 11:37 Globulin 2.7 g/dL (1.3-4.6) 01/09/23 11:37 Triglycerides 109 mg/dL (0-150) 01/09/23 03:57 Cholesterol 127 mg/dL (0-200) 01/09/23 03:57 LDL Cholesterol, Calc 52 mg/dL (50-129) 01/09/23 03:57 HDL Cholesterol 53 mg/dL (60-100) L 01/09/23 03:57 LDL/HDL Ratio 0.98 RATIO (0.00-3.22) 01/09/23 03:57 Cholesterol/HDL Ratio 2.40 mg/dL (0.0-4.40) 01/09/23 03:57 Lipase 9 U/L (13-60) L 01/09/23 11:37 Vitamin B12 1270 pg/mL (232-1245) H 01/09/23 03:57 Folate 6.7 ng/mL (4.8-37.3) 01/09/23 03:57 Procalcitonin 0.15 ng/mL (0-0.5) 01/09/23 11:37 TSH 2.70 uIU/mL (0.27-4.20) 01/09/23 03:57 Urine Color Straw (Yellow) 01/09/23 17:30 Urine Appearance Clear (CLEAR) 01/09/23 17:30 Urine pH 5 (5-7) 01/09/23 17:30 Ur Specific [place] 1.010 (1.005-1.030) 01/09/23 17:30 Urine Protein Neg (Negative) 01/09/23 17:30 Urine Glucose (UA) Norm (Normal) 01/09/23 17:30 Urine Ketones Negative (Negative) 01/09/23 17:30 Urine Blood Neg (Negative) 01/09/23 17:30 Urine Nitrate Negative (Negative) 01/09/23 17:30 Urine Bilirubin Neg (Negative) 01/09/23 17:30 Urine Urobilinogen Norm mg/dL (Negative) 01/09/23 17:30 Ur Leukocyte Esterase Negative (Negative) 01/09/23 17:30 Discharge Plan Discharge Patient Disposition: Admitted As Inpatient Admit Provider: Jose Vasquez Clinical Impression: Fracture, humerus, head, VANDANA (acute kidney injury), Congestive heart failure Condition: Stable Coding Level of Care Code ED Pediatric Associate for Scottie Diana
--- NOTE | 2023-01-09 10:40 | XRR_ITS ---
PROCEDURE INFORMATION: Exam: XR Left Humerus Exam date and time: 01/09/2023 10:50 AM Age: 82 years old Clinical indication: Pain; Upper arm; Left TECHNIQUE: Imaging protocol: Radiologic exam of the left humerus. Views: 2 or more views. COMPARISON: CR (UP EXM, ) 01/07/2023 7:27 PM FINDINGS: Bones/joints: There is again demonstrated a comminuted fracture of the left humeral head and neck consisting of transverse fracture through the humeral neck and obliquely ordered fracture of the greater tuberosity. There is persistent inferior displacement of the humeral head in relation to the glenoid that may be long-standing or represent associated subluxation of the shoulder joint and could be better assessed on CT exam. Superimposed degenerative changes left shoulder joint stable. Remainder of visualized osseous structures are unremarkable. Soft tissues: Normal. XR/[place] [id number] IMPRESSION: Stable appearance of displaced comminuted fracture left humeral head and neck as discussed above.
--- NOTE | 2023-01-09 10:50 | ECG_ITS ---
[facility] Test Date: 2023-01-09 Pat Name: Silvana Martinez Department: Room: Gender: Female Sql Server Bi Developer: : 1940 Requested By: George Monterroso Order Number: [id number] Maggy MD: Emir Bryant M.D. Measurements Intervals [place] Rate: 69 P: 0 HI: 0 QRS: -66 QRSD: 165 T: 155 QT: 485 QTc: 522 Interpretive Statements ELECTRONIC VENTRICULAR PACEMAKER ABNORMAL RHYTHM ECG Compared to ECG 09/20/2022 16:30:08 No significant changes Electronically Signed On 01-10-2023 10:17:24 CDT by Emir Bryant M.D. [id number]
[2023-01-09 11:52] LABS: Basophils % 0.2 %; Eosinophils % 0.4 %; Hemoglobin 11.8 g/dL (11.5-15.3); Lymphocytes # 0.8 10^3/uL (0.8-4.8); Mean Corpuscular HGB Conc 32.8 g/dL (30.0-36.0); Mean Corpuscular Hemoglobin 35.4 pg (28.0-34.0); Mean Corpuscular Volume 108.1 fl (81-99); Mean Platelet Volume 10.7 fL (7.4-10.4); Monocytes # 0.6 10^3/uL (0.2-0.9); Monocytes % 7.2 %; Neutrophils # 6.88 10^3/uL (1.8-7.7); Neutrophils % 81.7 %; Nucleated Red Blood Cells % 0 %; Platelet Count 105 10^3/cmm (130-400); Red Blood Count 3.33 10^6/uL (4.1-5.3); Red Cell Distribution Width 13.2 % (12.1-15.1); White Blood Count 8.4 10^3/uL (4.0-10.0)
[2023-01-09 12:18] LABS: Alanine Aminotransferase 9 U/L (0-33); Albumin Level 3.3 g/dL (3.5-5.2); Alkaline Phosphatase 51 U/L (35-105); Anion Gap 13.7 (5-19); Aspartate Amino Transferase 14 U/L (0-32); Blood Urea Nitrogen 20 mg/dL (8-23); Calcium 8.4 mg/dL (8.5-10.5); Carbon Dioxide 25 mmol/L (22-29); Chloride 105 mmol/L (98-107); Globulin 2.7 g/dL (1.3-4.6); Glucose 104 mg/dL (65-115); Lipase 9 U/L (13-60); Osmolality Calculated 293 mOsm/kg (285-295); Potassium 3.7 mmol/L (3.5-5.1); Sodium 140 mmol/L (136-145); Total Bilirubin 1.5 mg/dL (0.15-1.2)
[2023-01-09 12:19] LABS: Lactic Sepsis W/Reflex 1.8 mmol/L (0.5-2.2)
[2023-01-09 12:20] LABS: Troponin(5th) Baseline 19 ng/L (0-10)
--- NOTE | 2023-01-09 12:34 | ECG_ITS ---
[facility] Test Date: 2023-01-09 Pat Name: Silvana Martinez Department: Room: Gender: Female Eeo Officer: : 1940 Requested By: George Monterroso Order Number: [id number] Maggy MD: Emir Bryant M.D. Measurements Intervals [place] Rate: 69 P: 0 MT: 0 QRS: -68 QRSD: 157 T: 129 QT: 479 QTc: 516 Interpretive Statements ELECTRONIC VENTRICULAR PACEMAKER ABNORMAL RHYTHM ECG Compared to ECG 01/09/2023 10:50:03 No significant changes Electronically Signed On 01-10-2023 10:27:42 CDT by Emir Bryant M.D. [id number]
[2023-01-09 14:46] LABS: Troponin 5 2HR 17.91 ng/L (0-10)
[2023-01-09 15:04] LABS: Troponin 5 2HR Delta -1.09 ABS# (0-10)
--- NOTE | 2023-01-09 16:25 | ECG_ITS ---
[facility] Test Date: 2023-01-09 Pat Name: Silvana Martinez Department: Room: Gender: Female Fuse Maker: : 1940 Requested By: George Monterroso Order Number: [id number] Maggy MD: Emir Bryant M.D. Measurements Intervals [place] Rate: 69 P: 0 [place]: 0 QRS: -66 QRSD: 163 T: 135 QT: 523 QTc: 563 Interpretive Statements ELECTRONIC VENTRICULAR PACEMAKER ABNORMAL RHYTHM ECG Compared to ECG 01/09/2023 12:34:24 No significant changes Electronically Signed On 01-10-2023 10:28:38 CDT by Emir Bryant M.D. [id number]
--- NOTE | 2023-01-09 16:30 | CTR_ITS ---
PROCEDURE INFORMATION: Exam: CTA Chest With Contrast Exam date and time: 01/09/2023 8:14 PM Age: 82 years old Clinical indication: Dyspnea TECHNIQUE: Imaging protocol: Computed tomographic angiography of the chest with contrast. 3D rendering (Not supervised by radiologist): MIP and/or 3D reconstructed images were created by the technologist. Radiation optimization: All CT scans at this facility use at least one of these dose optimization techniques: automated exposure control; mA and/or kV adjustment per patient size (includes targeted exams where dose is matched to clinical indication); or iterative reconstruction. Contrast material: OMNI 350; Contrast volume: 100 ml; Contrast route: INTRAVENOUS (IV); REPORTING DATA: Count of CT and Cardiac NM exams in prior 12 months: This patient has received 2 known CTs and 0 known cardiac nuclear medicine studies in the 12 months prior to the current study. COMPARISON: CR (CHEST, ) 01/09/2023 10:35 AM RADIATION DOSE METRICS: Total DLP (mGy-cm): 851.97 FINDINGS: Tubes, catheters and devices: Left pacemaker with leads in the heart. Pulmonary arteries: Normal. No pulmonary emboli. Aorta: Unremarkable. No aortic aneurysm. No aortic dissection. Lungs: Right lower lobe calcified granuloma. Mild scattered atelectasis. No consolidation. Pleural spaces: Trace pleural effusions. No pneumothorax. Heart: Cardiomegaly. Lymph nodes: Calcified right hilar lymph nodes. No enlarged lymph nodes. Gallbladder and bile ducts: Fluid distended gallbladder. No visible wall thickening or stones. The bile ducts are normal. Pancreas: Atrophic pancreas. Kidneys and ureters: Left renal cyst, Hounsfield units less than 20. No follow-up imaging is recommended. Bones/joints: Severe degenerative changes of the shoulder joints. T3, T4, T7, T10, T11, and T12 compression fractures. Soft tissues: Unremarkable. CT/CT angio chest PE protcl [id number] IMPRESSION: 1. No evidence for pulmonary embolus. 2. No acute pulmonary finding. 3. Trace pleural effusions. 4. Multiple age indeterminate thoracic compression fractures. COMMENTS: Consistent with the [place] [employer]'s Incidental Findings Committee white paper (J Am Tom Radiol 2018): Any incidental renal lesion less than 1 cm or classified as too small to characterize, or any incidental cystic renal lesion characterized as simple-appearing, is likely benign. No follow-up imaging is recommended for these lesions per consensus recommendations based on imaging criteria.
[2023-01-09 17:35] LABS: Add Urine Microscopic? NO; Charge for UA Resulting for Rev
[2023-01-09 17:42] LABS: Bilirubin Urine Neg (Negative); Blood Urine Neg (Negative); Glucose Urine UA Norm (Normal); Ketones Urine Negative (Negative); Leukocyte Esterase Urine Negative (Negative); Nitrate Urine Negative (Negative); Protein Urine Neg (Negative); Urine Appearance Clear (CLEAR); Urine Color Straw (Yellow); Urobilinogen Urine Norm (Negative); pH Urine 5 (5-7)
--- NOTE | 2023-01-09 19:00 | PC.NURSE ---
Pt report received from Ravinder FERNÁNDEZ. Pt needs IV for CT, charge nurse notified of multiple unsuccessful attempts for IV access by prior shift. Charge nurse at bedside for IV attempt.
[2023-01-09] MEDS: iohexol 350 mg/mL 500 mL Btl (per mL) IV (20:34)
[2023-01-09] MEDS: sodium chloride 0.9% 500 ML 999 ML IV (20:59)
[2023-01-09] MEDS: amlodipine 10 mg Tablet PO (21:28)
--- NOTE | 2023-01-09 23:01 | PM.HP ---
Providers/Chief Complaint Primary Care Provider: Miguel Moser DO Chief Complaint: WEAKNESS History of Present Illness Silvana Martinez is a 82 year old female with a past medical history of atrial fibrillation history of ambulation, on Eliquis, hypertension, CAD, status post stent x1, CHF history of AICD, recent history of generator replacement, recently developed a humeral fracture after a fall, medically managed, who presents to [facility] due to altered mental status, weakness, fatigue, poor appetite. Currently patient is alert to person, to place, not to time, her granddaughter and family members are at bedside. Patient tells me she has no concerns, her only issue is the severe pain that she is having in her left shoulder, she feels weak, she feels there is nothing wrong with her, she is not exactly sure why family members are still concerned. She lives at home with her sister, she denies any further falls, denies any weakness. Denies any chest pain, no shortness of breath, no abdominal pain, no dysuria, no hematuria, no flank pain, no back pain, no hip pain. Family members at bedside tell me that she does have underlying dementia, her dementia has advanced to some degree. However in the last few days, she has had significant episodes of confusion, weakness, they tell me that yesterday they were immediately called to her home, she was slumped over on the toilet, its like she passed out, nonresponsive, and it took a few minutes for her to become awake. They also tell me she has been significantly confused, her granddaughter tells me that she could not recognize her, no facial droop noticed no slurring of her words, no focal weakness, but since her humeral fracture she has not ambulated. She has not eaten much, she is only use really 2 pain pills, they are also worried as her blood pressures were really soft when she passed out they are in the 80s over 60s, and her O2 sats were in the low 80s, during our conversation patient keeps forgetting who I am she keeps asking me who I am after I introduced myself multiple times Review of Systems Const: Denies: fever(s) Eyes: Denies: change in vision Card: Denies: chest pain Resp: Denies: dyspnea GI: Denies: abdominal pain, nausea, vomiting or diarrhea : Denies: flank pain or difficulty voiding Musc: Denies: neck pain or back pain Neuro: Reports: difficulty walking and behavioral changes; Denies: headache(s), numbness in extremities, weakness in extremities, dizziness, vertigo, Slurred speech present or seizure-like activity Endo: Denies: polyuria Medications/Allergies Home Medications Medication Instructions Recorded Confirmed Last Taken Type alendronate 70 mg tablet 70 mg PO Q7D 11/13/19 11/13/22 10/06/22 History cholecalciferol (vitamin D3) 50 2,000 unit PO DAILY 11/13/19 11/13/22 10/13/22 History mcg (2,000 unit) tablet [id number] tablet 1 tab PO DAILY 11/13/19 11/13/22 10/12/22 History sertraline 50 mg tablet 50 mg PO DAILY 11/13/19 11/13/22 10/12/22 History isosorbide mononitrate 30 mg 30 mg PO DAILY 02/02/20 11/13/22 10/12/22 History tablet,extended release 24 hr simvastatin 20 mg tablet 10 mg PO DAILY 02/02/20 11/13/22 10/12/22 History apixaban 2.5 mg tablet (Eliquis) 2.5 mg PO BID #180 tabs 05/14/22 11/13/22 10/10/22 Rx carvedilol 12.5 mg tablet 6.25 mg PO BID 05/15/22 11/13/22 10/13/22 History furosemide 20 mg tablet 40 mg PO QAM PRN Edema 05/15/22 11/13/22 Unknown History oxybutynin chloride 10 mg 10 mg PO DAILY 09/20/22 11/13/22 10/12/22 History tablet,extended release 24 hr potassium chloride 10 mEq 10 meq PO DAILY PRN if lasix taken 09/22/22 11/13/22 10/12/22 History capsule,extended release ketoconazole 2 % topical cream 1 applic topical BID PRN flares 10/12/22 11/13/22 Unknown History gabapentin 300 mg capsule 300 mg PO BID 10/23/22 11/13/22 Unknown History hydrocodone 5 mg-acetaminophen 325 1 tab PO Q12H PRN pain #10 tabs 01/07/23 Unknown Rx mg tablet Allergies Allergy/AdvReac Type Severity Reaction Status Date / Time morphine Allergy ADR-Halluci Verified 01/09/23 10:28 nating PFSH Acute PFSH: Medical History Atrial fibrillation CAD (coronary artery disease) Cardiac resynchronization therapy defibrillator (BOTTLE MACHINE OPERATOR-D) in place HTN (hypertension) Presence of stent in left circumflex coronary artery 2012 Surgical History History of automatic internal cardiac defibrillator (AICD) Family History (Updated 01/09/23 @ 23:08 by Jose Vasquez MD) Mother Breast cancer Other CAD (coronary artery disease) Social History Smoking and tobacco status: former smoker Alcohol intake: never Substance/Drug Use: never Vitals/I&O/Wt Last Vital Signs Temp 98.2 F 01/09/23 10:21 Pulse 71 01/09/23 22:00 Resp 16 01/09/23 22:00 BP 112/82 01/09/23 22:00 Pulse Ox 93 01/09/23 22:00 O2 Del Method Room Air 01/09/23 22:00 O2 Flow Rate 2 01/09/23 10:21 Weight last 48 hrs Weight 63.049 kg Physical Exam Const: COMMON NORMALS: no acute distress EXAM LIMITATIONS: altered mental status GENERAL APPEARANCE: cooperative, well kempt and well developed ORIENTATION/CONSCIOUSNESS: Yes awake and Yes oriented to person; not oriented to place and not oriented to time HENMT: COMMON NORMALS: normocephalic Eye: COMMON NORMALS: Equal, round and reactive pupils present, EOMs intact bilaterally, conjunctivae normal and no scleral icterus CONJUNCTIVA: Yes conjunctivae normal PUPIL: Yes Equal, round and reactive pupils present Neck/C-Spine: COMMON NORMALS: full ROM, no lymphadenopathy, no meningeal signs, no JVD, Thyroid normal and No carotid bruits THYROID: Thyroid normal Lymph: LYMPHATIC: no lymphadenopathy noted Chest: COMMONS NORMALS: normal inspection of the chest Resp: COMMON NORMALS: normal respiratory effort, No retractions, No use of accessory muscles and clear to auscultation bilaterally AUSCULTATION: clear to auscultation bilaterally Cardio: COMMON NORMALS: no JVD, regular rate, regular rhythm, S1 normal heart sound present, S2 normal heart sound present, No murmurs present (Cardio) and Peripheral pulses 2+ throughout RATE: regular rate RHYTHM: regular rhythm HEART SOUNDS: S1 normal heart sound present and S2 normal heart sound present PERIPHERAL PULSES: Peripheral pulses 2+ throughout GI: COMMON NORMALS: Normal to inspection, nondistended, normoactive bowel sounds present, Soft to palpation and non-tender PALPATION: Yes Soft to palpation : COMMON NORMALS: Yes no CVA tenderness BLADDER/KIDNEY EXAM: Yes no CVA tenderness Back/Pelvis: COMMON NORMALS: no CVA tenderness Extremity: COMMON NORMALS: normal to inspection, full ROM, capillary refill normal, no calf tenderness and no pedal edema Neuro: COMMON NORMALS: CN's II-XII intact bilaterally, moves all extremities, no focal motor deficits and no sensory deficits noted MENINGEAL SIGNS: Yes no meningeal signs Psych: COMMON NORMALS: cooperative and speech normal APPEARANCE: Yes well kempt SPEECH: Yes normal speech Skin: COMMON NORMALS: turgor normal and no jaundice GENERAL SKIN EXAM: turgor normal Data 01/09/23 11:37 01/09/23 11:37 Other data: Chest x-ray personally reviewed by me, no focal infiltrates EKG shows pacemaker, no acute ST-T wave changes A&P Assessment and plan (1) Fracture, humerus, head: (2) Congestive heart failure: (3) CAD (coronary artery disease): (4) Presence of stent in left circumflex coronary artery: (5) HTN (hypertension): Qualifiers: Hypertension type: essential hypertension Qualified Code(s): I10 - Essential (primary) hypertension (6) Atrial fibrillation: Qualifiers: Atrial fibrillation type: persistent (not longstanding) Qualified Code(s): I48.19 - Other persistent atrial fibrillation (7) Acute encephalopathy: (8) Syncope: (9) VANDANA (acute kidney injury): Plan Acute encephalopathy -Patient has delirium like symptoms -UA unremarkable for UTI -Chest x-ray no focal pneumonia -No significant electrolyte abnormalities -No facial droop, no slurring of words, focal weakness -CT angiogram of the chest negative for pulmonary embolism, no focal infection Plan -Serial EKGs, serial troponins, telemetry monitoring -Cardiac echo -Carotid artery ultrasound -B12, folate -We will do orthostatic vitals -IV fluids -Neurochecks, aspiration precautions, and stroke scale -Full code -Continue Eliquis for DVT prophylaxis Syncopal episode, work-up as above VANDANA, IV fluids Humeral fracture, medically managed in a sling Attestations Medical Necessity Statement*: Patient requires hospitalization, inpatient, greater than 2 midnights for acute encephalopathy, syncopal episode, VANDANA, Diagnoses Fracture, humerus, head S42.293A Congestive heart failure I50.9 CAD (coronary artery disease) I25.10 Presence of stent in left circumflex coronary artery Z95.5 HTN (hypertension) I10 Hypertension type: essential hypertension Atrial fibrillation I48.19 Atrial fibrillation type: persistent (not longstanding) Acute encephalopathy G93.40 Syncope R55 VANDANA (acute kidney injury) N17.9
--- NOTE | 2023-01-09 23:48 | XRR_ITS ---
PROCEDURE INFORMATION: Exam: XR Bilateral Hips Exam date and time: 01/10/2023 1:53 AM Age: 82 years old Clinical indication: Injury or trauma; Fall; Crushing; Bilateral; Hip and pelvic region; Hip and pelvic area; Prior surgery; Surgery date: 6+ months; Surgery type: Left hip TECHNIQUE: Imaging protocol: Radiologic exam of the bilateral hips. Views: 2 views of hips with pelvis when performed. COMPARISON: OT XR hip LT 2-3V wo/w pel* [id number] 02/01/2017 9:17 AM FINDINGS: Bones/joints: Left hip ORIF. Moderate bilateral hip DJD. No acute fracture. Soft tissues: The colon is rather fecal filled. Advanced diffuse vascular calcification noted. Organs: Bladder contains excreted IV contrast. XR/XR hip BI 2V wo/w pel [id number] IMPRESSION: No acute findings.
--- NOTE | 2023-01-09 23:48 | CTR_ITS ---
PROCEDURE INFORMATION: Exam: CT Head Without Contrast Exam date and time: 01/10/2023 1:47 AM Age: 82 years old Clinical indication: Altered mental status/memory loss; Confusion or disorientation; Additional info: AMS TECHNIQUE: Imaging protocol: Computed tomography of the head without contrast. Radiation optimization: All CT scans at this facility use at least one of these dose optimization techniques: automated exposure control; mA and/or kV adjustment per patient size (includes targeted exams where dose is matched to clinical indication); or iterative reconstruction. REPORTING DATA: Count of CT and Cardiac NM exams in prior 12 months: This patient has received 2 known CTs and 0 known cardiac nuclear medicine studies in the 12 months prior to the current study. COMPARISON: CT head wo con* [id number] 01/07/2023 7:35 PM RADIATION DOSE METRICS: Total DLP (mGy-cm): 1096.08 FINDINGS: Brain: No focal hemorrhage or midline shift is identified. The ventricles and parenchyma show moderate atrophy and chronic bicerebral white matter ischemic change. There is residual IV contrast noted from prior day CTA chest. Cerebral ventricles: No ventriculomegaly or evidence of hydrocephalus. Paranasal sinuses: No evidence of acute sinusitis. Mastoid air cells: Visualized mastoid air cells are well aerated. Bones/joints: No displaced skull fracture is noted. Soft tissues: Unremarkable. Vasculature: Diffuse vascular calcifications are present. CT/CT head wo con* [id number] IMPRESSION: 1. No acute intracranial abnormality. 2. Moderate age-related changes.
[2023-01-09 23:54] LABS: Procalcitonin 0.15 ng/mL (0-0.5)
[2023-01-10] VITALS (8 sets, daily range): BP systolic 113–160; BP diastolic 69–110; PULSE 69–71; RESP 17–20; TEMP 36.7–37.7; O2SAT 94–97
--- NOTE | 2023-01-10 01:15 | PC.NURSE ---
scanned bladder post void-0.
--- NOTE | 2023-01-10 01:18 | PC.NURSE ---
patient has several bruises noted to stefania arms/lower ext, small skin tear noted to right lower ext, open to air. weeping/edema to right upper ext from iv infiltrate.
--- NOTE | 2023-01-10 02:17 | PC.NURSE ---
rescanned bladder-113ml
[2023-01-10 04:16] LABS: Basophils % 0.4 %; Eosinophils # 0.1 10^3/uL (0.0-0.8); Eosinophils % 0.7 %; Hematocrit 36.9 % (37.0-47.0); Hemoglobin 11.9 g/dL (11.5-15.3); Lymphocytes # 1.1 10^3/uL (0.8-4.8); Lymphocytes % 13.9 %; Mean Corpuscular HGB Conc 32.2 g/dL (30.0-36.0); Mean Corpuscular Hemoglobin 35.2 pg (28.0-34.0); Mean Corpuscular Volume 109.2 fl (81-99); Mean Platelet Volume 11.3 fL (7.4-10.4); Monocytes # 0.6 10^3/uL (0.2-0.9); Monocytes % 8.4 %; Neutrophils # 5.79 10^3/uL (1.8-7.7); Neutrophils % 76.1 %; Nucleated Red Blood Cells % 0 %; Platelet Count 104 10^3/cmm (130-400); Red Blood Count 3.38 10^6/uL (4.1-5.3); Red Cell Distribution Width 13.2 % (12.1-15.1); White Blood Count 7.6 10^3/uL (4.0-10.0)
[2023-01-10 04:30] LABS: Alanine Aminotransferase 10 U/L (0-33); Albumin Level 3.1 g/dL (3.5-5.2); Alkaline Phosphatase 55 U/L (35-105); Anion Gap 16.5 (5-19); Aspartate Amino Transferase 15 U/L (0-32); Blood Urea Nitrogen 23 mg/dL (8-23); Calcium 8.5 mg/dL (8.5-10.5); Carbon Dioxide 22 mmol/L (22-29); Chloride 100 mmol/L (98-107); Globulin 3.1 g/dL (1.3-4.6); Glucose 99 mg/dL (65-115); Osmolality Calculated 284 mOsm/kg (285-295); Phosphorus 3.2 mg/dL (2.5-4.5); Potassium 3.5 mmol/L (3.5-5.1); Sodium 135 mmol/L (136-145); Total Bilirubin 1.3 mg/dL (0.15-1.2); Total Protein 6.2 g/dL (6.6-8.7)
[2023-01-10 04:31] LABS: Ammonia 23 umol/L (11-51); Lactic Sepsis W/Reflex 1.7 mmol/L (0.5-2.2)
[2023-01-10 04:32] LABS: Troponin 5 6HR 19.28 ng/L (0-10)
[2023-01-10 04:40] LABS: Estmated Average Glucose 100; Hemoglobin A1C 5.1 % (4.0-6.0)
[2023-01-10 04:42] LABS: Troponin 5 6HR Delta 0.28 ng/L (0-12)
[2023-01-10 04:51] LABS: Cholesterol 127 mg/dL (0-200); HDL Cholesterol 53 mg/dL (60-100); LDL Cholesterol Calculated 52 mg/dL (50-129); LDL HDL Ratio 0.98 RATIO (0.00-3.22); Triglycerides 109 mg/dL (0-150); Vitamin B12 1270 pg/mL (232-1245)
[2023-01-10 04:53] LABS: Folate Level 6.7 ng/mL (4.8-37.3)
[2023-01-10] MEDS: atorvastatin 40 mg Tablet 20 MG PO (09:32)
[2023-01-10] MEDS: apixaban 5 mg Tablet 2.5 MG PO ×2 (09:32→17:29)
[2023-01-10] MEDS: sertraline 50 mg Tablet PO (09:32)
[2023-01-10] MEDS: gabapentin 300 mg Capsule PO ×2 (09:32→17:30)
--- NOTE | 2023-01-10 12:31 | PM.PN ---
Subjective Subjective: Patient agreeable for rehab Family at the bedside Had a long discussion Patient is stating that she is constipated but willing to try rehab for now she does not want to go to [facility], Jacquelin notified Vitals/I&O/Wt Last Vital Signs Temp 98.2 F 01/10/23 12:00 Pulse 69 01/10/23 12:00 Resp 17 01/10/23 12:00 BP 126/76 01/10/23 12:00 Pulse Ox 95 01/10/23 12:00 O2 Del Method Room Air 01/10/23 04:00 O2 Flow Rate 2 01/09/23 10:21 01/09/23 01/10/23 01/10/23 22:59 06:59 14:59 Intake Total 980 / 980 Balance 980 / 980 Weight last 48 hrs Weight 63.049 kg Physical Exam Narrative: Patient laying supine Worked with occupational therapy Awake and alert S1, S2 Bowel sound present Hyperactive No stridor or wheezing Family at the bedside Patient looks euvolemic AOx3 GCS 15 Data 01/10/23 03:57 01/10/23 03:57 Micro: Microbiology 01/10/23 03:57 Blood Culture - Preliminary Blood SPECIMEN COLLECTED 01/10/23 04:05 Blood Culture - Preliminary Blood SPECIMEN COLLECTED A&P Assessment and plan (1) VANDANA (acute kidney injury): (2) Acute encephalopathy: (3) Fracture, humerus, head: (4) Presence of stent in left circumflex coronary artery: (5) Venous (peripheral) insufficiency: (6) Cardiac resynchronization therapy defibrillator (TEACHER CCLC-D) in place: (7) HTN (hypertension): Qualifiers: Hypertension type: essential hypertension Qualified Code(s): I10 - Essential (primary) hypertension (8) Atrial fibrillation: Qualifiers: Atrial fibrillation type: persistent (not longstanding) Qualified Code(s): I48.19 - Other persistent atrial fibrillation Plan Metabolic encephalopathy related to dehydration: Resolved VANDANA: Improving, discontinue IV fluid Patient is agreeable to go to rehab I have discontinue IV fluids She may continue cardiac diet Endorsing constipation we will add lactulose and shraddha S Family at the bedside Spoke with her DPOA They do not want [facility] for now [place] notified, she will look into [place] Full code Continue occupational therapy along PT Patient will need rehab before she returns home Opioids for her shoulder pain Attestations Medical Necessity Statement*: Continue medical management Diagnoses VANDANA (acute kidney injury) N17.9 Acute encephalopathy G93.40 Fracture, humerus, head S42.293A Presence of stent in left circumflex coronary artery Z95.5 Venous (peripheral) insufficiency I87.2 Cardiac resynchronization therapy defibrillator (TEACHER CCLC-D) in place Z95.810 HTN (hypertension) I10 Hypertension type: essential hypertension Atrial fibrillation I48.19 Atrial fibrillation type: persistent (not longstanding)
[2023-01-10] MEDS: sennosides-docusate Tablet 1 TAB PO (17:30)
[2023-01-11] VITALS (8 sets, daily range): BP systolic 119–176; BP diastolic 61–84; PULSE 69–73; RESP 15–22; TEMP 36.7–37.3; O2SAT 93–97
[2023-01-11] MEDS: sennosides-docusate Tablet 1 TAB PO ×2 (08:07→17:50)
[2023-01-11] MEDS: apixaban 5 mg Tablet 2.5 MG PO ×2 (08:07→17:51)
[2023-01-11] MEDS: sertraline 50 mg Tablet PO (08:07)
[2023-01-11] MEDS: atorvastatin 40 mg Tablet 20 MG PO (08:07)
[2023-01-11] MEDS: gabapentin 300 mg Capsule PO ×2 (08:07→17:50)
[2023-01-11] MEDS: pantoprazole 40 mg SDV IVP (09:39)
--- NOTE | 2023-01-11 10:23 | P.PN_ITS ---
Subjective Subjective: Patient is awaiting placement constipation resolved Patient had a bowel movement, Vitals/I&O/Wt Last Vital Signs Temp 98.1 F 01/11/23 08:00 Pulse 73 01/11/23 08:00 Resp 18 01/11/23 08:00 BP 132/83 01/11/23 08:00 Pulse Ox 95 01/11/23 08:00 O2 Del Method Room Air 01/11/23 08:00 O2 Flow Rate 2 01/10/23 20:00 01/10/23 01/11/23 01/11/23 22:59 06:59 14:59 Intake Total 240 / 1460 250 / 1710 240 / 240 Balance 240 / 1460 250 / 1710 240 / 240 Physical Exam Narrative: Patient is awake and alert Nonfocal neuro exam Pleasant cooperative S1, S2 GCS 15 Doing well on room air Data 01/10/23 03:57 01/10/23 03:57 Micro: Microbiology 01/10/23 03:57 Blood Culture - Preliminary Blood NEGATIVE TO DATE 01/10/23 04:05 Blood Culture - Preliminary Blood NEGATIVE TO DATE A&P Assessment and plan (1) VANDANA (acute kidney injury): (2) Acute encephalopathy: (3) Venous (peripheral) insufficiency: (4) Presence of stent in left circumflex coronary artery: (5) Cardiac resynchronization therapy defibrillator ([place] MACHINE OPERATOR-D) in place: (6) HTN (hypertension): Qualifiers: Hypertension type: essential hypertension Qualified Code(s): I10 - Essential (primary) hypertension (7) Atrial fibrillation: Qualifiers: Atrial fibrillation type: persistent (not longstanding) Qualified Code(s): I48.19 - Other persistent atrial fibrillation Plan Metabolic encephalopathy and VANDANA has resolved No change in medications today Constipation: Resolved Family at the bedside laboratory manager updated Continue therapy Attestations Medical Necessity Statement*: Discharge in next 24 to correctional case manager have sent the referral Diagnoses VANDANA (acute kidney injury) N17.9 Acute encephalopathy G93.40 Venous (peripheral) insufficiency I87.2 Presence of stent in left circumflex coronary artery Z95.5 Cardiac resynchronization therapy defibrillator ([place] MACHINE OPERATOR-D) in place Z95.810 HTN (hypertension) I10 Hypertension type: essential hypertension Atrial fibrillation I48.19 Atrial fibrillation type: persistent (not longstanding)
--- NOTE | 2023-01-11 10:36 | PC.CHAP ---
Pastoral Care Encounter/Spiritual Assessment Type of Contact [] Declined front counter clerk visit [] Patient/Family/Request visit [] Outpatient visit [] Follow-up visit [] Physician referral [] Code/Alert [x] Routine visit [] Staff referral [] Actively dying [] Patient sleeping [x] Family support [] [] Out of room [] Palliative care [] [] Receiving care in room [] Pre-surgical visit [] Trauma [] Long length of stay [] ICU visit [] Other: Relational/Emotional Strength [x] Patient feels connected with others/family/visitors/staff [] Distress [] Loneliness/isolation [] Abandonment Spirituality of Patient [x] Person of Shantelle [] Attends Baptism of their Shantelle [x] Believes in Prayer [] Reads Bible or Tenriism materials [] There are Spiritual issues to be addressed Ledge Man Interventions [x] Prayer [] Active listening [] Non-anxious presence [] Spiritual/emotional support [] Crisis/trauma care [] Spiritual counseling [] Bereavement support [] Provided bereavement packet [] Provided Bible/devotional materials [] Provided toy/stuffed animal, coloring book to patient or family member [] Provided Communion [] Anointing/[place] [] Salvation [x] Completed spiritual assessment [] Other: Impact on Illness or Injury [] Angry [] Fearful [] Anxious [] Often cries [] Exhaustion [] Unable to work [] Unable to attend spiritism [] Unable to walk/stand [] Unable to read [] Unable to drive [] Unable to eat/drink [] Unable to sleep [] Unable to be with family [] Patient intubated [] Other: Summary Time spent with patient 5 min
[2023-01-12 04:00] VITALS: BP 152/68; PULSE 69; RESP 20; TEMP 36.7; O2SAT 93
[2023-01-12] MEDS: sertraline 50 mg Tablet PO (09:43)
[2023-01-12] MEDS: apixaban 5 mg Tablet 2.5 MG PO ×2 (09:43→17:57)
[2023-01-12] MEDS: gabapentin 300 mg Capsule PO ×2 (09:43→17:57)
[2023-01-12] MEDS: atorvastatin 40 mg Tablet 20 MG PO (09:43)
[2023-01-12] MEDS: sennosides-docusate Tablet 1 TAB PO ×2 (09:43→17:57)
[2023-01-12] MEDS: lactulose oral liq 20 gm/30 mL UDC 10 GM PO (10:21)
[2023-01-12] MEDS: pantoprazole 40 mg SDV IVP (10:29)
--- NOTE | 2023-01-12 10:58 | PC.SOCIAL ---
IMM update IMM updated with patient and family. Copy Pg 2 provided. Verbalized an understanding. Initialled, dated, timed, and placed in chart.
--- NOTE | 2023-01-12 11:14 | P.PN_ITS ---
Subjective Subjective: Patient could not sleep well last night this morning when she woke up she was confused could not recognize people around her however she told me the name of the president, her date of and then later on her mentation cleared up a bit As per the family she was going frequently to the bathroom Patient had 1 bowel movement this morning I have started on IV fluids requested UA and give her 1 dose of lactulose She will stay here 1 more day for closer monitoring I do not see any signs of stroke We do not need any CT head for now she was very frustrated about her confusion Vitals/I&O/Wt Last Vital Signs Temp 98.1 F 01/12/23 04:00 Pulse 69 01/12/23 04:00 Resp 20 H 01/12/23 04:00 BP 152/68 01/12/23 04:00 Pulse Ox 93 01/12/23 04:00 O2 Del Method Room Air 01/12/23 04:00 O2 Flow Rate 2 01/11/23 20:00 01/11/23 01/12/23 01/12/23 22:59 06:59 14:59 Intake Total 300 / 780 0 / 780 320 / 320 Balance 300 / 780 0 / 780 320 / 320 Physical Exam Narrative: Patient looks dehydrated Awake and alert Able to answer my questions She is oriented to time, place but not person No active focal deficits noted Edema, PERRLA No active discomfort Currently on room air GCS 15 No audible stridor or wheezing Abdomen soft Family at the bedside Data 01/10/23 03:57 01/10/23 03:57 A&P Assessment and plan (1) VANDANA (acute kidney injury): (2) Acute encephalopathy: (3) Fracture, humerus, head: (4) Closed fracture of distal ends of right radius and ulna: Qualifiers: Encounter type: initial encounter Qualified Code(s): S52.501A - Unspecified fracture of the lower end of right radius, initial encounter for closed fracture; S52.601A - Unspecified fracture of lower end of right ulna, initial encounter for closed fracture (5) Presence of stent in left circumflex coronary artery: (6) Cardiac resynchronization therapy defibrillator (PAVING PLANT OPERATOR-D) in place: (7) Atrial fibrillation: Qualifiers: Atrial fibrillation type: persistent (not longstanding) Qualified Code(s): I48.19 - Other persistent atrial fibrillation (8) Dementia: (9) Delirium: Plan Acute delirium with underlying dementia Requested UA start IV fluids Patient is very cooperative and pleasant She seems frustrated about her confusion as well No active neurological deficit No need of CT head for now Patient could not sleep very well last night Rule out UTI, will give her a dose of ceftriaxone Patient will get lactulose, 1 bowel movement today Cultures negative to date VANDANA: Related to dehydration Creatinine stable around 1.2 [facility], we are planning to watch her 1 more day because of her confusion spell today However I do think this is chronic due to underlying dementia I would like to rule out UTI, she had 1 bowel movement, she has been started on IV fluids and antibiotics Plan to discharge her tomorrow if stays stable She could not sleep very well last night, we can use Restoril on as-needed basis along opioids for her shoulder pain Patient remains full code Currently on cardiac diet Attestations Medical Necessity Statement*: Possible discharge tomorrow if remains stable Diagnoses VANDANA (acute kidney injury) N17.9 Acute encephalopathy G93.40 Fracture, humerus, head S42.293A Closed fracture of distal ends of right radius and ulna S52.501A; S52.601A Encounter type: initial encounter Presence of stent in left circumflex coronary artery Z95.5 Cardiac resynchronization therapy defibrillator (PAVING PLANT OPERATOR-D) in place Z95.810 Atrial fibrillation I48.19 Atrial fibrillation type: persistent (not longstanding) Dementia F03.90 Delirium R41.0
[2023-01-12 12:00] VITALS: BP 176/99; PULSE 70; RESP 18; TEMP 36.8; O2SAT 99
[2023-01-12] MEDS: sodium chloride 0.9% 1,000 ML 75 ML IV (12:31)
[2023-01-12] MEDS: cefTRIAXone 1,000 MG in sodium chloride 0.9% (plus) 50 ML 100 MG IV (12:31)
[2023-01-12 13:42] LABS: Add Urine Microscopic? YES; Bilirubin Urine Neg (Negative); Blood Urine 2+ (Negative); Glucose Urine UA Norm (Normal); Ketones Urine Negative (Negative); Leukocyte Esterase Urine Negative (Negative); Nitrate Urine Negative (Negative); Protein Urine Neg (Negative); Specific Gravity, Urine 1.015 (1.005-1.030); Urine Appearance Hazy (CLEAR); Urine Color Yellow (Yellow); Urobilinogen Urine Norm (Negative); pH Urine 5 (5-7)
[2023-01-12 13:43] LABS: RBC Urine 0-4 /hpf (0-2); Squamous Epithelial Cell Urine 0-4 /hpf (0-5); WBC Urine 15-25 /hpf (0-5)
[2023-01-12 13:44] LABS: Add Urine Culture? Yes; Bacteria Urine 1+ /hpf
[2023-01-12 15:42] VITALS: BP 145/75; PULSE 84; RESP 15; TEMP 36.6; O2SAT 96
[2023-01-12 20:00] VITALS: BP 134/80; PULSE 70; RESP 18; TEMP 36.6; O2SAT 98
[2023-01-12] MEDS: zolpidem 5 mg Tablet 2.5 MG PO (21:39)
[2023-01-12 23:37] VITALS: BP 122/66; BP 131/74; BP 145/79; PULSE 69; RESP 17; TEMP 36.3; O2SAT 96
[2023-01-13 04:00] VITALS: BP 141/80; PULSE 69; RESP 16; TEMP 37.2; O2SAT 96
[2023-01-13 05:22] LABS: Basophils % 0.4 %; Eosinophils # 0.2 10^3/uL (0.0-0.8); Eosinophils % 2.8 %; Hematocrit 32.3 % (37.0-47.0); Hemoglobin 10.4 g/dL (11.5-15.3); Lymphocytes # 0.9 10^3/uL (0.8-4.8); Lymphocytes % 16.8 %; Mean Corpuscular HGB Conc 32.2 g/dL (30.0-36.0); Mean Corpuscular Hemoglobin 35.4 pg (28.0-34.0); Mean Corpuscular Volume 109.9 fl (81-99); Mean Platelet Volume 11.2 fL (7.4-10.4); Monocytes # 0.5 10^3/uL (0.2-0.9); Monocytes % 8.8 %; Neutrophils # 3.84 10^3/uL (1.8-7.7); Neutrophils % 70.6 %; Nucleated Red Blood Cells % 0 %; Platelet Count 111 10^3/cmm (130-400); Red Blood Count 2.94 10^6/uL (4.1-5.3); Red Cell Distribution Width 13.2 % (12.1-15.1); White Blood Count 5.4 10^3/uL (4.0-10.0)
[2023-01-13 05:45] LABS: Anion Gap 13.5 (5-19); Blood Urea Nitrogen 13 mg/dL (8-23); Calcium 8.1 mg/dL (8.5-10.5); Carbon Dioxide 23 mmol/L (22-29); Chloride 110 mmol/L (98-107); Creatinine Clr Calc Pharmacy 44.9517; Glucose 97 mg/dL (65-115); Osmolality Calculated 296 mOsm/kg (285-295); Potassium 3.5 mmol/L (3.5-5.1); Sodium 143 mmol/L (136-145)
[2023-01-13 07:38] VITALS: BP 153/76; PULSE 70; RESP 18; TEMP 36.7; O2SAT 97
[2023-01-13] MEDS: sertraline 50 mg Tablet PO (08:09)
[2023-01-13] MEDS: gabapentin 300 mg Capsule PO (08:09)
[2023-01-13] MEDS: atorvastatin 40 mg Tablet 20 MG PO (08:09)
[2023-01-13] MEDS: sennosides-docusate Tablet 1 TAB PO (08:10)
[2023-01-13] MEDS: apixaban 5 mg Tablet 2.5 MG PO (08:10)
[2023-01-13] MEDS: pantoprazole 40 mg SDV IVP (08:12)
[2023-01-13 10:11] LABS: SARS Covid-2 Antigen Negative (Negative)
--- NOTE | 2023-01-13 10:23 | P.DS_ITS ---
Discharge Providers Date of Admission: 01/09/23 23:00 Date of Discharge: January 13, 2023 Attending Provider at Admission: Jose Vasquez MD Attending Provider at Discharge: Mya Spencer MD Primary Care Provider: Miguel Moser DO Diagnoses at Discharge Discharge Diagnosis (1) VANDANA (acute kidney injury): Status: Acute (2) Acute encephalopathy: Status: Acute (3) Fracture, humerus, head: Status: Acute (4) Closed fracture of distal ends of right radius and ulna: Status: Acute Qualifiers: Encounter type: initial encounter Qualified Code(s): S52.501A - Unspecified fracture of the lower end of right radius, initial encounter for closed fracture; S52.601A - Unspecified fracture of lower end of right ulna, initial encounter for closed fracture (5) Presence of stent in left circumflex coronary artery: Status: Acute Permanent problem details: 2012 (6) Cardiac resynchronization therapy defibrillator (PROCESS SAFETY MANAGER-D) in place: Status: Chronic (7) Atrial fibrillation: Status: Acute Qualifiers: Atrial fibrillation type: persistent (not longstanding) Qualified Code(s): I48.19 - Other persistent atrial fibrillation (8) Dementia: Status: Acute (9) Delirium: Status: Acute Reason for Visit Reason for Visit: WEAKNESS Hospital Course Hospital Course 82-year-old female with history of dementia, presented to hospital with metabolic encephalopathy related to dehydration and VANDANA, with IV fluid hydration VANDANA improved, patient was pleasant throughout hospitalization, she was oriented to time and place but not to person, family remained at bedside, patient has been diagnosed with UTI, she was also constipated, with lactulose for constipat ion resolved, for UTI she required ceftriaxone. I did career development counselor family extensively that she is suffering from dementia and they would see gradual decline in her mentation in near future, they were very anxious that while she is not recognizing family members. She is eating, able to participate with PT and OT, doing well on room air, pain well managed. Constipation resolved, not endorsing dysuria. Agreeable to go to rehab. She will get cefpodoxime for 7- day regimen at the time of discharge. Patient was able to tell me name of the president, year 2022, he mixes up names of her grandchildren, patient is also suffering from humeral head fracture which is being managed conservatively with sling. She is full code. Patient is forgetful but pleasant. She is also suffering from insomnia. I will add memantine and donepezil for her dementia. Physical Exam Narrative: Patient is pleasant and cooperative Currently on room air GCS 15 Eating breakfast Family is at the bedside She was able to answer all my questions Oriented to time but not to place, Nonfocal neuro exam Awaiting dentures Currently on room air doing well S1, S2 variable Discharge Data Studies Completed and Pending Completed Studies During Hospitalization Category Date Time Status CT angio chest PE protcl [id number] Stat Cat Scan 01/09/23 16:[address] head wo con* [id number] Routine Cat Scan 01/09/23 23:48 Completed XR chest 1V portable [id number] Stat Exams 01/09/23 10:25 Completed XR hip BI 2V wo/w pel [id number] Routine Exams 01/09/23 23:48 [place] [id number] Stat Exams 01/09/23 10:40 Completed XR shoulder LT min 2V* [id number] Stat Exams 01/09/23 10:35 Completed Pending at discharge Category Date Time Status Blood Culture Routine Lab 01/09/23 23:48 Results Urine Culture Routine Lab 01/12/23 12:41 Results Radiology Impressions Chest X-Ray 01/09/23 10:25 IMPRESSION: 1. Cardiomegaly with elevated central venous pressure. 2. Enlarging right paratracheal opacity of uncertain significance. Follow-up nonemergent CT chest recommended for clarification. Shoulder X-Ray 01/09/23 10:35 IMPRESSION: Unchanged fracture deformity of the humeral head with inferior glenohumeral joint subluxation. Humerus X-Ray 01/09/23 10:40 IMPRESSION: Stable appearance of displaced comminuted fracture left humeral head and neck as discussed above. Chest CTA 01/09/23 16:30 IMPRESSION: 1. No evidence for pulmonary embolus. 2. No acute pulmonary finding. 3. Trace pleural effusions. 4. Multiple age indeterminate thoracic compression fractures. COMMENTS: Consistent with the [employer]'s Incidental Findings Committee white paper (J Am Tom Radiol 2018): Any incidental renal lesion less than 1 cm or classified as too small to characterize, or any incidental cystic renal lesion characterized as simple-appearing, is likely benign. No follow-up imaging is recommended for these lesions per consensus recommendations based on imaging criteria. Head CT 01/09/23 23:48 IMPRESSION: 1. No acute intracranial abnormality. 2. Moderate age-related changes. Hip/Pelvis X-Ray 01/09/23 23:48 IMPRESSION: No acute findings. Laboratory Results WBC 5.4 10^3/uL (4.0-10.0) 01/13/23 04:53 RBC 2.94 10^6/uL (4.1-5.3) L 01/13/23 04:53 Hgb 10.4 g/dL (11.5-15.3) L 01/13/23 04:53 Hct 32.3 % (37.0-47.0) L 01/13/23 04:53 MCV 109.9 fl (81-99) H 01/13/23 04:53 MCH 35.4 pg (28.0-34.0) H 01/13/23 04:53 MCHC 32.2 g/dL (30.0-36.0) 01/13/23 04:53 RDW 13.2 % (12.1-15.1) 01/13/23 04:53 Plt Count 111 10^3/cmm (130-400) L 01/13/23 04:53 MPV 11.2 fL (7.4-10.4) H 01/13/23 04:53 Neut % (Auto) 70.6 % 01/13/23 04:53 Lymph % (Auto) 16.8 % 01/13/23 04:53 [place] % (Auto) 8.8 % 01/13/23 04:53 Eos % (Auto) 2.8 % 01/13/23 04:53 Baso % (Auto) 0.4 % 01/13/23 04:53 Neut # (Auto) 3.84 10^3/uL (1.8-7.7) 01/13/23 04:53 Lymph # (Auto) 0.9 10^3/uL (0.8-4.8) 01/13/23 04:53 [place] # (Auto) 0.5 10^3/uL (0.2-0.9) 01/13/23 04:53 Eos # (Auto) 0.2 10^3/uL (0.0-0.8) 01/13/23 04:53 Baso # (Auto) 0.0 10^3/uL (0.0-0.1) 01/13/23 04:53 Nucleated RBC % (auto) 0 % 01/13/23 04:53 Nucleated RBCs # 0.0 /100WBC 01/13/23 04:53 Sodium 143 mmol/L (136-145) 01/13/23 04:53 Potassium 3.5 mmol/L (3.5-5.1) 01/13/23 04:53 Chloride 110 mmol/L (98-107) H 01/13/23 04:53 Carbon Dioxide 23 mmol/L (22-29) 01/13/23 04:53 Anion Gap 13.5 (5-19) 01/13/23 04:53 BUN 13 mg/dL (8-23) 01/13/23 04:53 Creatinine 0.8 mg/dL (0.5-0.9) 01/13/23 04:53 GFR Calculation Not Reportable 01/13/23 04:53 Glucose 97 mg/dL (65-115) 01/13/23 04:53 Estimat Average Glucose 100 01/09/23 03:57 Hemoglobin A1c 5.1 % (4.0-6.0) 01/09/23 03:57 Calculated Osmolality 296 mOsm/kg (285-295) H 01/13/23 04:53 Lactic Acid 1.8 mmol/L (0.5-2.2) 01/09/23 11:37 Calcium 8.1 mg/dL (8.5-10.5) L 01/13/23 04:53 Phosphorus 3.2 mg/dL (2.5-4.5) 01/10/23 03:57 Magnesium 2.0 mg/dL (1.7-2.3) 01/10/23 03:57 Total Bilirubin 1.3 mg/dL (0.15-1.2) H 01/10/23 03:57 AST 15 U/L (0-32) 01/10/23 03:57 ALT 10 U/L (0-33) 01/10/23 03:57 Alkaline Phosphatase 55 U/L (35-105) 01/10/23 03:57 Ammonia 23 umol/L (11-51) 01/09/23 03:57 Troponin T Baseline 19 ng/L (0-10) H 01/09/23 11:37 Troponin T 120 Minute 17.91 ng/L (0-10) H 01/09/23 14:15 Delta Troponin T -1.09 ABS# (0-10) L 01/09/23 14:15 Troponin T Hi Sens 6Hr 19.28 ng/L (0-10) H 01/09/23 03:57 Troponin T Hi Sens 6Hr Delta 0.28 ng/L (0-12) 01/09/23 03:57 Total Protein 6.2 g/dL (6.6-8.7) L 01/10/23 03:57 Albumin 3.1 g/dL (3.5-5.2) L 01/10/23 03:57 Globulin 3.1 g/dL (1.3-4.6) 01/10/23 03:57 Triglycerides 109 mg/dL (0-150) 01/09/23 03:57 Cholesterol 127 mg/dL (0-200) 01/09/23 03:57 LDL Cholesterol, Calc 52 mg/dL (50-129) 01/09/23 03:57 HDL Cholesterol 53 mg/dL (60-100) L 01/09/23 03:57 LDL/HDL Ratio 0.98 RATIO (0.00-3.22) 01/09/23 03:57 Cholesterol/HDL Ratio 2.40 mg/dL (0.0-4.40) 01/09/23 03:57 Lipase 9 U/L (13-60) L 01/09/23 11:37 Vitamin B12 1270 pg/mL (232-1245) H 01/09/23 03:57 Folate 6.7 ng/mL (4.8-37.3) 01/09/23 03:57 Procalcitonin 0.15 ng/mL (0-0.5) 01/09/23 11:37 TSH 2.70 uIU/mL (0.27-4.20) 01/09/23 03:57 Urine Color Yellow (Yellow) 01/12/23 12:41 Urine Appearance Hazy (CLEAR) A 01/12/23 12:41 Urine pH 5 (5-7) 01/12/23 12:41 Ur Specific [place] 1.015 (1.005-1.030) 01/12/23 12:41 Urine Protein Neg (Negative) 01/12/23 12:41 Urine Glucose (UA) Norm (Normal) 01/12/23 12:41 Urine Ketones Negative (Negative) 01/12/23 12:41 Urine Blood 2+ (Negative) H 01/12/23 12:41 Urine Nitrate Negative (Negative) 01/12/23 12:41 Urine Bilirubin Neg (Negative) 01/12/23 12:41 Urine Urobilinogen Norm mg/dL (Negative) 01/12/23 12:41 Ur Leukocyte Esterase Negative (Negative) 01/12/23 12:41 Urine RBC 0-4 /hpf (0-2) H 01/12/23 12:41 Urine WBC 15-25 /hpf (0-5) H 01/12/23 12:41 Ur Squamous Epith Cells 0-4 /hpf (0-5) H 01/12/23 12:41 Amorphous Sediment Not Reportable 01/12/23 12:41 Urine Bacteria 1+ /hpf (NONE) H 01/12/23 12:41 SARS-CoV-2 Ag (Rapid) Negative (Negative) 01/13/23 Unknown Vitals Last Vital Signs Temp 98.1 F 01/13/23 07:38 Pulse 70 01/13/23 07:38 Resp 18 01/13/23 07:38 BP 153/76 01/13/23 07:38 Pulse Ox 97 01/13/23 07:38 O2 Del Method Room Air 01/13/23 04:00 O2 Flow Rate 2 01/13/23 08:00 Discharge Plan Discharge Patient Disposition: Home Condition: Stable Prescriptions: New quetiapine [Seroquel] 25 mg tablet 25 mg PO BEDTIME PRN (Reason: insomnia and agitation symptoms) Qty: 10 0RF cefpodoxime 200 mg tablet 200 mg PO BID Qty: 14 0RF Rx Instructions: must administer with a meal/food memantine-donepezil 7-10 mg capsule,sprinkle,ER 24hr 1 cap PO DAILY 60 Days Qty: 60 2RF Continued isosorbide mononitrate 30 mg tablet extended release 24 hr 30 mg PO DAILY sertraline 50 mg tablet 50 mg PO DAILY cholecalciferol (vitamin D3) 2,000 unit tablet 2,000 unit PO DAILY [id number] Tablet 1 tab PO DAILY simvastatin 20 mg tablet 10 mg PO DAILY furosemide 20 mg tablet 40 mg PO QAM PRN (Reason: Edema) potassium chloride 10 mEq capsule, extended release 10 meq PO DAILY PRN (Reason: if lasix taken) gabapentin 300 mg capsule 300 mg PO BID carvedilol 12.5 mg tablet 6.25 mg PO BID Rx Instructions: must administer with a meal/food Eliquis 2.5 mg tablet 2.5 mg PO BID Qty: 180 2RF Hold Instructions: until reviewed by primary care oxybutynin chloride 10 mg tablet extended release 24hr 10 mg PO DAILY ketoconazole 2 % cream 1 applic topical BID PRN (Reason: flares) Rx Instructions: Apply to affected areas and skin folds x3 weeks. May use as needed for flares. hydrocodone-acetaminophen 5-325 mg tablet 1 tab PO Q12H PRN (Reason: pain) Qty: 10 0RF Discontinued alendronate 70 mg tablet 70 mg PO Q7D Rx Instructions: on Tuesdays Discharge Orders: Discharge Order (Routine); Ordered 01/13/23 Ordered By: Mya Spencer Referrals: Miguel Moser DO [Primary Care Provider] - 01/18/23 3:00 pm Discharge Diet: Soft Mechanical Discharge Activity: Increase activity as tolerated Patient Instructions: Opioid Safety Discharge Attestations Time Spent in Discharge Care*: greater than 30 min Quality Metrics Clinical Quality Measures [ No reported AMI, CVA or VTE this stay] Coding Level of Care Code Acute Code for Chg Fwd Diagnoses VANDANA (acute kidney injury) N17.9 Acute encephalopathy G93.40 Fracture, humerus, head S42.293A Closed fracture of distal ends of right radius and ulna S52.501A; S52.601A Encounter type: initial encounter Presence of stent in left circumflex coronary artery Z95.5 Cardiac resynchronization therapy defibrillator (PROCESS SAFETY MANAGER-D) in place Z95.810 Atrial fibrillation I48.19 Atrial fibrillation type: persistent (not longstanding) Dementia F03.90 Delirium R41.0
[2023-01-13 11:28] VITALS: BP 139/69; PULSE 70; RESP 18; TEMP 36.7; O2SAT 98
[2023-01-13 11:39] VITALS: BP 139/69; PULSE 70; RESP 18; TEMP 36.7; O2SAT 98
--- NOTE | 2023-01-13 11:40 | PC.NURSE ---
Report called to Curt Cameron given to Stephany FERNÁNDEZ.
== END 2023-01-13 13:30 | disposition skilled nursing facility (03) | DRG 682 ==
LOC: ER 19:09 → MEDSURG 23:08
PROVIDERS: Family Medicine; Admitting Provider Family Medicine; Emergency Provider Emergency Medicine; PCP Internal Medicine; Visit Provider Internal Medicine
DX: N17.9 Acute kidney failure, unspecified (principal); G93.41 Metabolic encephalopathy; S42.292A Other displaced fracture of upper end of left humerus, initial encounter for closed fracture; F05 Delirium due to known physiological condition; N39.0 Urinary tract infection, site not specified; I48.19 Other persistent atrial fibrillation; W18.30XA Fall on same level, unspecified, initial encounter; F03.90 Unspecified dementia, unspecified severity, without behavioral disturbance, psychotic disturbance, mood disturbance, and anxiety; E86.0 Dehydration; K59.00 Constipation, unspecified; Z79.01 Long term (current) use of anticoagulants; Z79.891 Long term (current) use of opiate analgesic; Z95.0 Presence of cardiac pacemaker; I11.0 Hypertensive heart disease with heart failure; I50.9 Heart failure, unspecified; I25.10 Atherosclerotic heart disease of native coronary artery without angina pectoris; Z95.5 Presence of coronary angioplasty implant and graft; Z87.891 Personal history of nicotine dependence; I87.2 Venous insufficiency (chronic) (peripheral)
CPT/HCPCS: 36415; 51798; 70450; 71045; 71275; 73030; 73060; 73521; 80048; 80053; 80061; 81001; 81003; 82140; 82607; 82746; 83036; 83605; 83690; 83735; 84100; 84145; 84443; 84484; 85025; 87040; 87086; 87426; 93005; 94664; 97110; 97116; 97161; 97167; 97530; 97535; 99284; 99285; C9113; G0378; J0696; J7030; J7040; Q9967

== ENCOUNTER → 2023-01-20 13:42 | Outpatient (BNVA) | payer MEDICARE, SELFPAY | PROVIDERS: PCP Internal Medicine; Visit Provider Orthopaedic Surgery | DX: R00.2 Palpitations (principal); I83.90 Asymptomatic varicose veins of unspecified lower extremity; I10 Essential (primary) hypertension; F41.1 Generalized anxiety disorder; F17.219 Nicotine dependence, cigarettes, with unspecified nicotine-induced disorders; W01.0XXA Fall on same level from slipping, tripping and stumbling without subsequent striking against object, initial encounter; S42.202A Unspecified fracture of upper end of left humerus, initial encounter for closed fracture | CPT/HCPCS: 73030; 99024 ==

== ENCOUNTER → 2023-02-17 13:46 | Outpatient (BNVA) | payer MEDICARE, SELFPAY | PROVIDERS: PCP Internal Medicine; Visit Provider Orthopaedic Surgery | DX: S42.202A Unspecified fracture of upper end of left humerus, initial encounter for closed fracture (principal); X58.XXXA Exposure to other specified factors, initial encounter | CPT/HCPCS: 73030; 99024 ==

== ENCOUNTER → 2023-03-16 13:26 | Outpatient (BNVA) | payer MEDICARE, MEDICAID, SELFPAY | PROVIDERS: PCP Internal Medicine; Visit Provider Nurse Practitioner Family | DX: S42.202A Unspecified fracture of upper end of left humerus, initial encounter for closed fracture (principal); W19.XXXA Unspecified fall, initial encounter | CPT/HCPCS: 73030; 99213 ==

== ENCOUNTER → 2023-03-24 15:32 | Outpatient (BNVA) | payer MEDICARE, MEDICAID, SELFPAY | PROVIDERS: PCP Internal Medicine; Visit Provider Internal Medicine | DX: Z45.02 Encounter for adjustment and management of automatic implantable cardiac defibrillator (principal) | CPT/HCPCS: 93296 ==

== ENCOUNTER → 2023-05-25 13:10 | Outpatient (BNVA) | payer MEDICARE, MEDICAID, SELFPAY | PROVIDERS: PCP Internal Medicine; Visit Provider Internal Medicine | DX: I11.0 Hypertensive heart disease with heart failure (principal); I50.9 Heart failure, unspecified; I48.19 Other persistent atrial fibrillation; Z95.810 Presence of automatic (implantable) cardiac defibrillator; I25.10 Atherosclerotic heart disease of native coronary artery without angina pectoris; Z87.891 Personal history of nicotine dependence; Z79.01 Long term (current) use of anticoagulants | CPT/HCPCS: 99214 ==

== ENCOUNTER → 2023-07-06 14:02 | Outpatient (BNVA) | payer MEDICARE, MEDICAID, SELFPAY | PROVIDERS: PCP Internal Medicine; Visit Provider Student in an Organized Health Care Education/Training Program | DX: S42.202A Unspecified fracture of upper end of left humerus, initial encounter for closed fracture; W19.XXXA Unspecified fall, initial encounter | CPT/HCPCS: 73030; 99213 ==

== ENCOUNTER 2023-09-14 16:27 | Emergency (ER) | payer MEDICARE, MEDICAID, SELFPAY ==
[2023-09-14 16:36] VITALS: BP 198/79; PULSE 72; RESP 18; TEMP 36.8; O2SAT 97
--- NOTE | 2023-09-14 17:02 | XRR_ITS ---
PROCEDURE INFORMATION: Exam: XR Left Hip Exam date and time: 09/14/2023 5:11 PM Age: 83 years old Clinical indication: Hip pain and pelvic pain; Prior surgery; Surgery date: 6+ months; Surgery type: Femoral minnie; Patient HX: Left hip pain TECHNIQUE: Imaging protocol: Radiologic exam of the left hip. Views: 2 or 3 views hip with pelvis when performed. COMPARISON: CR XR hip BI 2V wo/w pel [id number] 01/10/2023 1:53 AM FINDINGS: Bones/joints: No fracture or other acute abnormality. There is intact left internal fixation hardware consisting of a long intramedullary minnie and a compression nail.. Hip joint spaces are unremarkable. Degenerative changes are seen in the visualized lower lumbar spine. Soft tissues: See Bones/joints finding. XR/XR hip LT 2-3V wo/w pel* [id number] IMPRESSION: Nonacute findings.
--- NOTE | 2023-09-14 17:57 | W.ED.EXTPRO ---
HPI - Extremity Problem General: Chief complaint: Extremity Problem,Nontraumatic Stated complaint: Left hip pain Time Seen by Provider: 09/14/23 16:28 History of Present Illness: 83-year-old female presents from local [facility] facility with complaints of diffuse pain all over her body since before [place] (estimated at 2-1/2 weeks ago). She denies any falls, swelling, redness, injuries, sprains, fevers. She does suffer from dementia. She says they checked her for UTI already. Patient reports she is given acetaminophen which she notes is no better than taking a baby aspirin . It appears that she is also treated with gabapentin twice a day. It appears that she has had hallucinations with opiates in the past. The patient originally complained of left hip pain going down the left thigh thinking that she had sciatica. However, after multiple attempts for her to localize her pain during my history, she says it just hurts all over. She does not have any history of polymyalgia rheumatica, rheumatoid arthritis. Associated symptoms: Deny chest pain, fever(s) or rash Review of Systems General: Reports: 10 or more systems reviewed and unremarkable except in HPI and below Const: Denies: fever(s), chills or body aches Eyes: Denies: change in vision ENMT: Denies: throat pain Card: Denies: chest pain, edema or syncope Resp: Denies: dyspnea or productive cough GI: Denies: abdominal pain, nausea, vomiting or diarrhea : Denies: flank pain, dysuria or urinary frequency Musc: Denies: extremity swelling Skin/Breast: Denies: rash or erythema Neuro: Denies: headache(s), numbness in extremities, weakness in extremities or lack of coordination PFSH ED PFSH: Medical History Acute encephalopathy VANDANA (acute kidney injury) Atrial fibrillation CAD (coronary artery disease) Cardiac resynchronization therapy defibrillator (TALENT ANALYST-D) in place Closed fracture of distal ends of right radius and ulna Congestive heart failure Delirium Dementia Fracture, humerus, head HTN (hypertension) Presence of stent in left circumflex coronary artery 2013 Syncope Venous (peripheral) insufficiency Surgical History History of automatic internal cardiac defibrillator (AICD) Family History Mother Breast cancer Other CAD (coronary artery disease) Social History Smoking and tobacco/nicotine status: former use of tobacco/nicotine Alcohol intake: never Substance/Drug Use: never Physical Exam Narrative: EXAM NARRATIVE: This is an elderly appearing, deconditioned, frail female who is in no distress. Her initial concern was take me to the bathroom . She does appear to have some mild arthritic changes in her fingers. Active and passive range of motion of her extremities was performed. She has pain in both of her shoulders if she does too much of a range of motion or anyone tries to pull on them. She has periscapular myofascial trigger point tenderness, no tenderness of the trapezius muscles, no tenderness of the spine in the midline. Full range of motion of the right lower extremity, left lower extremity and rocking of the pelvis is unremarkable. Palpation of the greater trochanters of the hips is unremarkable. Lumbar paraspinal muscles are nontender. There are significant joint deformities, no swelling, redness, warmth. The patient is afebrile. It takes her some time to be able to sit up in bed as she wants to do it by herself. Then she is able to sit up on the side of the bed reporting that just moving twisting and bending makes her hurt all over. Const: COMMON NORMALS: alert and well nourished EXAM LIMITATIONS: no altered mental status HENMT: COMMON NORMALS: normocephalic, atraumatic and external ears normal HEAD & SCALP: normocephalic and atraumatic EXTERNAL EAR: Yes external ears normal MOUTH: no muffled voice Eye: COMMON NORMALS: conjunctivae normal and no scleral icterus CONJUNCTIVA: Yes conjunctivae normal Neck/C-Spine: GENERAL: Yes normal visual inspection and Yes trachea midline Resp: COMMON NORMALS: normal respiratory effort, No use of accessory muscles and clear to auscultation bilaterally AUSCULTATION: clear to auscultation bilaterally Cardio: COMMON NORMALS: regular rate RATE: regular rate GI: COMMON NORMALS: Soft to palpation and non-tender PALPATION: Yes Soft to palpation and No Guarding due to palpation present (GI) Extremity: COMMON NORMALS: normal to inspection Neuro: COMMON NORMALS: moves all extremities, no focal motor deficits and no sensory deficits noted SENSORIUM/ORIENTATION: Yes alert SPEECH: speech normal Psych: COMMON NORMALS: mental status grossly normal, Normal thought process present, cooperative, normal affect and speech normal SPEECH: Yes normal speech THOUGHT PROCESS: Normal thought process present Skin: COMMON NORMALS: no jaundice Course Vital Signs: Vital signs: Vital Signs Temperature 98.2 F 09/14/23 16:36 Pulse Rate 72 09/14/23 16:36 Respiratory Rate 18 09/14/23 16:36 Blood Pressure 198/79 09/14/23 16:36 Pulse Oximetry 97 09/14/23 16:36 Oxygen Delivery Me thod Room Air 09/14/23 16:36 MDM - Extremity (Nontraumatic) Medical Decision Making 83-year-old female with dementia presents with concerns for atraumatic subacute pain in a diffuse distribution. She says moving, walking, twisting, or really doing anything makes her hurt all over . She denies any recent trauma. There are no signs of any infectious etiology. Low suspicion for any autoimmune or inflammatory pathology. She probably does have osteoarthritis. I went ahead and did straight leg raises bilaterally which were negative. As a precaution we did x-rays of her left hip which did not show any acute abnormalities. I have a low suspicion for polymyalgia rheumatica. Patient did not have any signs of vasculitis. My plan is to give her an IM Toradol shot and a dose of tramadol here. She seems to be pushing for something stronger than Tylenol. However, with history of hallucinations to opiates, dementia, and polypharmacy, I am not going to be prescribing her any opiates. This will be between her and her primary care physician. On arrival she had elevated blood pressure without any symptoms. Medical screening examination has been performed and I do not find any indication for further ER workup or hospitalization. Patient will be referred for outpatient follow-up Lab Data Radiology Impressions Hip/Pelvis X-Ray 09/14/23 17:02 IMPRESSION: Nonacute findings. All radiology interpretation(s) finalized by discharge Discharge Plan Discharge Patient Disposition: Home Clinical Impression: Diffuse pain, Encounter for medical screening examination, Asymptomatic hypertension Condition: Stable Prescriptions: No Action isosorbide mononitrate 30 mg tablet extended release 24 hr 30 mg PO DAILY sertraline 50 mg tablet 50 mg PO DAILY cholecalciferol (vitamin D3) 2,000 unit tablet 2,000 unit PO DAILY simvastatin 20 mg tablet 10 mg PO DAILY gabapentin 300 mg capsule 300 mg PO BID melatonin 1 mg tablet 1 mg PO DAILY acetaminophen [Tylenol] 325 mg tablet 325 mg PO QID PRN albuterol sulfate 2.5 mg /3 mL (0.083 %) solution for nebulization 2.5 mg inhalation Q4H PRN lutein-zeaxanthin [Ocuvite Lutein 25] 25-5 mg capsule PO DAILY docusate sodium [Colace] 100 mg capsule 100 mg PO DAILY Eliquis 2.5 mg tablet 2.5 mg PO BID Qty: 180 2RF Hold Instructions: until reviewed by primary care oxybutynin chloride 10 mg tablet extended release 24hr 10 mg PO DAILY ketoconazole 2 % cream 1 applic topical BID PRN (Reason: flares) Rx Instructions: Apply to affected areas and skin folds x3 weeks. May use as needed for flares. memantine-donepezil 7-10 mg capsule,sprinkle,ER 24hr 1 cap PO DAILY 60 Days Qty: 60 2RF Discharge Orders: Discharge ED (Routine); Ordered 09/14/23 Ordered By: Sebastian Ames Referrals: Miguel Moser DO [Primary Care Provider] - 4-7 days (Diffuse pain for about 2 weeks) Discharge Diet: Usual diet Discharge Activity: Increase activity as tolerated Patient Instructions: Opioid Safety, Pain Management Activity Restrictions/Additional Instructions: Patient has presented for diffuse pain. She endorses intermittent pain in her shoulders, mid back, low back, hip, legs, and all over . Medical screening examination was performed. This may be due to arthritis, fibromyalgia, or less likely a pain syndrome such as polymyalgia rheumatica. We did not find any emergent etiology. Pain control may be an issue for this patient as putting her on stronger pain medications will make her dementia worse. However, treatment of atraumatic diffuse pain should be managed by her primary care physician. If the patient develops a traumatic injury, redness, swelling, fever, or other acute pain concerns, then please refer to the emergency department for evaluation. Coding Level of Care Code ED Foreign Service Teacher for Scottie Diana
[2023-09-14] MEDS: ketorolac 30 mg/mL INJ 15 MG IM (17:59)
[2023-09-14] MEDS: TRAMadol 50 mg Tablet 100 MG PO (18:01)
== END 2023-09-14 18:21 | disposition home or self-care (01) ==
PROVIDERS: Emergency Provider Emergency Medicine; PCP Internal Medicine
DX: R52 Pain, unspecified (principal); Z79.01 Long term (current) use of anticoagulants; I25.10 Atherosclerotic heart disease of native coronary artery without angina pectoris; I11.0 Hypertensive heart disease with heart failure; I50.9 Heart failure, unspecified; F03.90 Unspecified dementia, unspecified severity, without behavioral disturbance, psychotic disturbance, mood disturbance, and anxiety; Z95.810 Presence of automatic (implantable) cardiac defibrillator
CPT/HCPCS: 73502; 96372; 99284; J1885

== ENCOUNTER → 2023-11-23 12:37 | Outpatient (BNVA) | payer MEDICARE, MEDICAID, SELFPAY | PROVIDERS: PCP Internal Medicine; Visit Provider Internal Medicine | DX: I11.0 Hypertensive heart disease with heart failure (principal); I50.9 Heart failure, unspecified; Z87.891 Personal history of nicotine dependence; I48.19 Other persistent atrial fibrillation; Z79.01 Long term (current) use of anticoagulants; Z95.810 Presence of automatic (implantable) cardiac defibrillator; I25.10 Atherosclerotic heart disease of native coronary artery without angina pectoris | CPT/HCPCS: 99213 ==

== ENCOUNTER → 2024-05-24 14:43 | Outpatient (BNVA) | payer MEDICARE, MEDICAID, SELFPAY | PROVIDERS: PCP Internal Medicine; Visit Provider Internal Medicine | DX: I25.10 Atherosclerotic heart disease of native coronary artery without angina pectoris (principal); I48.19 Other persistent atrial fibrillation; Z95.810 Presence of automatic (implantable) cardiac defibrillator; I11.0 Hypertensive heart disease with heart failure; I50.9 Heart failure, unspecified; Z87.891 Personal history of nicotine dependence | CPT/HCPCS: 99213 ==

== ENCOUNTER → 2024-06-28 09:53 | Outpatient (BNVA) | payer MEDICARE, MEDICAID, SELFPAY | PROVIDERS: PCP Internal Medicine; Visit Provider Internal Medicine Cardiovascular Disease | DX: Z45.02 Encounter for adjustment and management of automatic implantable cardiac defibrillator (principal) | CPT/HCPCS: 93296 ==

== ENCOUNTER 2024-09-06 06:30 | Outpatient (CLI) | payer MEDICARE, MEDICAID, SELFPAY | END 2024-09-06 06:31 | LOC: SOT 10-06 09:55 | PROVIDERS: Visit Provider Orthopaedic Surgery | DX: Z46.89 Encounter for fitting and adjustment of other specified devices (principal); S52.601D Unspecified fracture of lower end of right ulna, subsequent encounter for closed fracture with routine healing; X58.XXXD Exposure to other specified factors, subsequent encounter | CPT/HCPCS: 99203; L3982 ==

== ENCOUNTER 2024-09-29 19:29 | Emergency (ER) | payer MEDICARE, MEDICAID, SELFPAY ==
[2024-09-29 19:35] VITALS: BP 169/93; PULSE 98; RESP 20; TEMP 36.6; O2SAT 68; BMI 25.4
--- NOTE | 2024-09-29 19:39 | XRR_ITS ---
PROCEDURE INFORMATION: Exam: XR Right Wrist Exam date and time: 09/29/2024 7:50 PM Age: 84 years old Clinical indication: Injury or trauma; Fall; Fracture, traumatic injury; Closed fracture and displaced; Wrist; Right TECHNIQUE: Imaging protocol: Radiologic exam of the right wrist. Views: 3 or more views. COMPARISON: No relevant prior studies available. FINDINGS: Bones/joints: Moderate osseous demineralization. [id number] displaced distal ulnar fracture. Suggestion of nondisplaced distal radial fracture. Chronic distal radial fracture limits evaluation. Degenerative changes of the wrist and base of the thumb. Soft tissues: Soft tissue swelling. XR/XR wrist RT min 3V* [id number] IMPRESSION: 1. [id number] displaced distal ulnar fracture. 2. Suggestion of nondisplaced distal radial fracture. Chronic distal radial fracture limits evaluation.
--- NOTE | 2024-09-29 19:39 | CTR_ITS ---
PROCEDURE INFORMATION: Exam: CT Cervical Spine Without Contrast Exam date and time: 09/29/2024 8:03 PM Age: 84 years old Clinical indication: Injury or trauma; Blunt trauma; Prior surgery; Surgery date: 6+ months; Surgery type: Pacer; Patient HX: EMS arrival from senior living for fall with frontal headstrike. Anticoagulated. TECHNIQUE: Imaging protocol: Computed tomography of the cervical spine without contrast. Radiation optimization: All CT scans at this facility use at least one of these dose optimization techniques: automated exposure control; mA and/or kV adjustment per patient size (includes targeted exams where dose is matched to clinical indication); or iterative reconstruction. COMPARISON: CT head wo con* [id number] 09/29/2024 8:01 PM RADIATION DOSE METRICS: Total DLP (mGy-cm): 321.95 FINDINGS: Bones: Craniocervical and facet alignment is preserved. No acute appearing vertebral body compression deformity. Osseous demineralization. Cervical spondylosis, most notable C3-C4 with severe left neural foraminal narrowing and at C5-C6 with probable moderate-severe spinal canal narrowing. Lungs: Imaged lung apices are unremarkable. Soft tissues: Unremarkable. CT/CT cervical spin wo con* [id number] IMPRESSION: No acute fracture or traumatic malalignment.
--- NOTE | 2024-09-29 19:39 | CTR_ITS ---
PROCEDURE INFORMATION: Exam: CT Head Without Contrast Exam date and time: 09/29/2024 8:01 PM Age: 84 years old Clinical indication: Injury or trauma; Blunt trauma (contusions or hematomas); Patient HX: EMS arrival from half-way for fall with frontal headstrike. Anticoagulated. ; Additional info: Fall/blood thinner TECHNIQUE: Imaging protocol: Computed tomography of the head without contrast. Radiation optimization: All CT scans at this facility use at least one of these dose optimization techniques: automated exposure control; mA and/or kV adjustment per patient size (includes targeted exams where dose is matched to clinical indication); or iterative reconstruction. COMPARISON: CT head wo con* [id number] 01/10/2023 1:47 AM RADIATION DOSE METRICS: Total DLP (mGy-cm): 853.68 FINDINGS: Brain: No acute intracranial hemorrhage. No acute territorial region of [place] dedifferentiation. No extra-axial collection. No mass effect or midline shift. Moderate burden of nonspecific white matter hypoattenuation, most commonly sequela of chronic microvascular ischemic change. Generalized parenchymal volume loss. 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 Cerebral ventricles: No acute hydrocephalus. 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 No fluid levels. Mastoid air cells: Visualized mastoid air cells are well aerated. Orbital cavities: No acute abnormality of the visualized orbits. Bones: No acute calvarial fracture. Soft tissues: No significant soft tissue swelling/hematoma evident. Vasculature: Vertebral artery, cavernous ICA, and carotid siphon atherosclerotic calcifications. CT/CT head wo con* [id number] IMPRESSION: No acute intracranial hemorrhage or acute calvarial fracture.
--- NOTE | 2024-09-29 19:40 | XRR_ITS ---
PROCEDURE INFORMATION: Exam: XR Chest Exam date and time: 09/29/2024 7:50 PM Age: 84 years old Clinical indication: Injury or trauma; Fall; Other: Wrist FX; Prior surgery; Surgery date: 6+ months; Surgery type: Pacer, defibrillator TECHNIQUE: Imaging protocol: Radiologic exam of the chest. Views: 1 view. COMPARISON: CT angio chest PE protcl [id number] 01/09/2023 8:14 PM FINDINGS: Tubes, catheters and devices: Left chest wall implantable pacer/defibrillator. Lungs: No pulmonary consolidation. Pleural spaces: No pleural effusion or pneumothorax. Heart/Mediastinum: Mild cardiomegaly. Vasculature: Atherosclerotic calcifications of the aorta are noted. Bones/joints: Mild osseous demineralization. No acute osseous abnormalities are seen. XR/XR chest 1V portable [id number] IMPRESSION: No acute cardiopulmonary disease.
--- NOTE | 2024-09-29 19:55 | ED_ITS ---
Documented by User: NAOMI Helms 09/29/24 22:12 HPI - Fall 2 General: Chief Complaint: Fall Stated Complaint: FALL Time Seen by Provider: 09/29/24 19:33 Source: patient and EMS Mode of arrival: EMS Limitations: no limitations History of Present Illness: Patient is an 84-year-old female who presents the emergency department by ambulance due to a fall that occurred at 0400 this morning. Patient is from [facility], reportedly had a trip and fall and injured her right arm and hit her head. She is on a blood thinner, injuries noted to her face and scalp. Also reportedly has a fractured right upper extremity, she had x-rays but I am unable to locate them at this time as they are not in our system. Patient is alert and oriented, states she remembers falling and she has a history of falling and has fractured both of her arms in the past. She states that she was only on the ground for a couple of seconds as she had an alert system with her and was able to call for help. EMS reported to me that correction had only contacted the emergency services about an hour prior to arrival. Patient reportedly had not been demonstrating any neurological deficits or astray from baseline mentation throughout the day. When I asked the patient if she is having any pain, she states that there is nothing bothering her at this time. She states that she has been ambulatory since this fall occurred. Patient denies to me any symptoms prior to falling, denies history of UTI. MD complaint: fall Onset (ago): hour(s) Fall from: standing Fall witnessed: no (Rapid assistance by correction staff within seconds) Place fall occurred: correction/SNF Loss of consciousness: None Prolonged down time: no Symptoms prior to fall: none Context: tripped/slipped Location of injury: head and face Location of injury - extremities: Right: forearm Associated symptoms-after fall: Denies abdominal pain, chest pain, difficulty walking, headache(s), lightheadedness or neck pain Related Data Home Medications Medication Instructions Recorded Confirmed cholecalciferol (vitamin D3) 50 2,000 unit PO DAILY 11/13/19 08/07/24 mcg (2,000 unit) tablet sertraline 50 mg tablet 50 mg PO DAILY 11/13/19 08/07/24 isosorbide mononitrate 30 mg 30 mg PO DAILY 02/02/20 08/07/24 tablet,extended release 24 hr ketoconazole 2 % topical cream 1 applic topical BID PRN flares 10/12/22 08/07/24 gabapentin 300 mg capsule 300 mg PO BID 10/23/22 08/07/24 acetaminophen 325 mg tablet 325 mg PO QID PRN 07/06/23 08/07/24 (Tylenol) docusate sodium 100 mg capsule 100 mg PO DAILY 07/06/23 08/07/24 (Colace) lutein 25 mg-zeaxanthin 5 mg cap PO DAILY 07/06/23 08/07/24 capsule (Ocuvite Lutein) losartan 25 mg tablet 25 mg PO DAILY 05/24/24 08/07/24 mirabegron 25 mg tablet,extended 25 mg PO DAILY 05/24/24 08/07/24 release 24 hr (Myrbetriq) Previous Rx's Medication Instructions Recorded apixaban 2.5 mg tablet (Eliquis) 2.5 mg PO BID #180 tabs 05/14/22 memantine ER 7 mg-donepezil 10 mg 1 cap PO DAILY 2 months #60 ea 01/13/23 capsule sprinkle,ext.release 24 hour cefdinir 300 mg capsule 300 mg PO BID 7 days #14 caps 09/29/24 Allergies Allergy/AdvReac Type Severity Reaction Status Date / Time morphine Allergy ADR-Halluci Verified 08/07/24 14:00 nating Review of Systems 2 General: Reports: 10 or more systems reviewed and unremarkable except in HPI and below Const: Reports: other (Fall/head trauma); Denies: fever(s) Eyes: Denies: change in vision ENMT: Denies: ear discharge, nasal discharge or epistaxis Card: Denies: chest pain, palpitations, edema or lightheadedness Resp: Denies: dyspnea, productive cough or wheezing GI: Denies: abdominal pain, nausea, vomiting or diarrhea Musc: Denies: neck pain, back pain, extremity pain, extremity swelling, joint pain, joint swelling or muscle weakness Skin/Breast: Reports: other (Abrasions to face); Denies: rash Neuro: Denies: headache(s), numbness in extremities, weakness in extremities, lack of coordination, difficulty walking, dizziness, Slurred speech present or seizure-like activity PFS ED 2 PFSH: Medical History Delirium Dementia VANDANA (acute kidney injury) Syncope Acute encephalopathy Fracture, humerus, head Congestive heart failure CAD (coronary artery disease) Closed fracture of distal ends of right radius and ulna Venous (peripheral) insufficiency Cardiac resynchronization therapy defibrillator (OIL HEAT TECHNICIAN-D) in place Presence of stent in left circumflex coronary artery 2012 Atrial fibrillation HTN (hypertension) Surgical History History of automatic internal cardiac defibrillator (AICD) Family History Mother Breast cancer Other CAD (coronary artery disease) Social History Smoking and tobacco/nicotine status: unknown if used tobacco/nicotine Alcohol intake: never Substance/Drug Use: never Physical Exam 2 Const: COMMON NORMALS: no acute distress, patient oriented x3 and no limitations GENERAL APPEARANCE: cooperative and comfortable O RIENTATION/CONSCIOUSNESS: Yes awake HENMT: COMMON NORMALS: moist oral mucous membranes THROAT: posterior oropharynx normal OTHER: Abrasion to right sikh. Lower lip hematoma with no active bleeding. There is also abrasion to right cheekbone. No raccoon eyes or Chase sign. No palpable skull fracture or scalp tenderness. Eye: COMMON NORMALS: Equal, round and reactive pupils present and EOMs intact bilaterally PUPIL: Yes Equal, round and reactive pupils present Neck/C-Spine: COMMON NORMALS: full ROM and supple CERVICAL SPINE: Yes cervical ROM normal OTHER: No cervical spinous process tenderness Chest: COMMONS NORMALS: normal inspection of the chest and normal palpation of entire chest wall Resp: COMMON NORMALS: normal respiratory effort, No retractions, No use of accessory muscles and clear to auscultation bilaterally AUSCULTATION: clear to auscultation bilaterally Cardio: COMMON NORMALS: regular rate, regular rhythm, S1 normal heart sound present, S2 normal heart sound present and Peripheral pulses 2+ throughout R ATE: regular rate RHYTHM: regular rhythm HEART SOUNDS: S1 normal heart sound present and S2 normal heart sound present PERIPHERAL PULSES: Peripheral pulses 2+ throughout GI: COMMON NORMALS: Normal to inspection, nondistended, normoactive bowel sounds present, Soft to palpation and non-tender PALPATION: Yes Soft to palpation Back/Pelvis: OTHER: No lumbar or thoracic spinous process tenderness to palpation, range of motion normal Extremity: NARRATIVE EXTREMITY EXAM: There is a splint overlying the right upper extremity. Palpation of all extremities and joints does not elicit any reproducible tenderness. Specifically she has no tenderness to palpation of the bilateral hips, normal flexion and extension at the hips bilaterally. There is no shortening or internal/external rotation of the lower extremities. No pedal edema, pulses symmetrical. No distal sensory changes, neurovascular functioning appears intact specifically to the right upper extremity where there is splint present. Neuro: COMMON NORMALS: patient oriented x3, CN's II-XII intact bilaterally, moves all extremities, no focal motor deficits and no sensory deficits noted Skin: NARRATIVE SKIN EXAM: See HEENT exam Course 2 Vital Signs: Vital signs: Vital Signs Temperature 98 F 09/29/24 19:35 Pulse Rate 70 09/29/24 22:16 Respiratory Rate 16 09/29/24 22:16 Blood Pressure 186/76 09/29/24 22:16 Pulse Oximetry 98 09/29/24 22:16 MDM - Fall Medical Decision Making This patient was brought in by ambulance, had a fall greater than 12 hours prior to arrival. History of fall, she arrives with splint to right forearm as there was a reported fracture here. At my time of examination, patient was at baseline mentation, alert and oriented x 3. Granddaughter who later was in the room confirmed that patient has been at baseline. Neurologically was intact, there were signs of head trauma and patient was on blood thinner. All of her joints and extremities were palpated aside from the covered right forearm, there were no abnormalities noted here. X-ray of the right forearm did show a distal ulnar fracture with mild displacement, patient placed in sugar-tong and referred to orthopedics. Upon removal of her splint there were some minor skin tears noted, these appeared well and there was no active bleeding. Her CT head and neck were negative for any intracranial findings. Blood work was unremarkable including a negative creatinine kinase. Her urinalysis did have evidence of hemorrhagic cystitis, of which we will treat with antibiotics. Patient has remained calm and cooperative throughout ED stay, no pain at any point during visit. I discussed this case in thorough detail with Dr. Soares here in the emergency department, who agrees with the disposition of the patient back to correction after splint and antibiotics. Po splint neurovascular status intact, family comfortable with this plan. Lab Data 09/29/24 19:53 09/29/24 19:53 Radiology Impressions Cervical Spine CT 09/29/24 19:39 IMPRESSION: No acute fracture or traumatic malalignment. Head CT 09/29/24 19:39 IMPRESSION: No acute intracranial hemorrhage or acute calvarial fracture. Wrist X-Ray 09/29/24 19:39 IMPRESSION: 1. [id number] displaced distal ulnar fracture. 2. Suggestion of nondisplaced distal radial fracture. Chronic distal radial fracture limits evaluation. Chest X-Ray 09/29/24 19:40 IMPRESSION: No acute cardiopulmonary disease. Laboratory Results WBC 7.99 10^3/uL (3.29-11.43) 09/29/24 19:53 RBC 3.32 10^6/uL (3.85-5.65) L 09/29/24 19:53 Hgb 12.00 g/dL (11.27-16.99) 09/29/24 19:53 Hct 37.4 % (36-47) 09/29/24 19:53 MCV 112.7 fl (85-98) H 09/29/24 19:53 MCH 36.1 pg (27-33) H 09/29/24 19:53 MCHC 32.1 g/dL (30-55) 09/29/24 19:53 RDW 14.6 % (12.1-15.1) 09/29/24 19:53 Plt Count 171 10^3/cmm (157-399) 09/29/24 19:53 MPV 10.3 fL (7.4-10.4) 09/29/24 19:53 Neut % (Auto) 66.9 % 09/29/24 19:53 Lymph % (Auto) 21.4 % 09/29/24 19:53 [place] % (Auto) 7.4 % 09/29/24 19:53 Eos % (Auto) 3.6 % 09/29/24 19:53 Baso % (Auto) 0.4 % 09/29/24 19:53 Neut # (Auto) 5.35 10^3/uL (1.8-7.7) 09/29/24 19:53 Lymph # (Auto) 1.7 10^3/uL (0.8-4.8) 09/29/24 19:53 [place] # (Auto) 0.6 10^3/uL (0.2-0.9) 09/29/24 19:53 Eos # (Auto) 0.3 10^3/uL (0.0-0.8) 09/29/24 19:53 Baso # (Auto) 0.0 10^3/uL (0.0-0.1) 09/29/24 19:53 Nucleated RBC % (auto) 0 % 09/29/24 19:53 Nucleated RBCs # 0.0 /100WBC 09/29/24 19:53 Sodium 140 mmol/L (136-145) 09/29/24 19:53 Potassium 3.9 mmol/L (3.5-5.1) 09/29/24 19:53 Chloride 104 mmol/L (98-107) 09/29/24 19:53 Carbon Dioxide 23 mmol/L (22-29) 09/29/24 19:53 Anion Gap 16.9 (5-19) 09/29/24 19:53 BUN 11 mg/dL (8-23) 09/29/24 19:53 Creatinine 0.9 mg/dL (0.5-0.9) 09/29/24 19:53 GFR Calculation Not Reportable 09/29/24 19:53 Glucose 92 mg/dL (65-115) 09/29/24 19:53 Calculated Osmolality 289 mOsm/kg (285-295) 09/29/24 19:53 Calcium 9.1 mg/dL (8.5-10.5) 09/29/24 19:53 Total Bilirubin 0.9 mg/dL (0.15-1.2) 09/29/24 19:53 AST 17 U/L (0-32) 09/29/24 19:53 ALT 10 U/L (0-33) 09/29/24 19:53 Alkaline Phosphatase 104 U/L (35-105) 09/29/24 19:53 Creatine Kinase 54 U/L (26-192) 09/29/24 19:53 Total Protein 6.9 g/dL (6.6-8.7) 09/29/24 19:53 Albumin 3.3 g/dL (3.5-5.2) L 09/29/24 19:53 Globulin 3.6 g/dL (1.3-4.6) 09/29/24 19:53 Urine Color Dark yellow (Yellow) A 09/29/24 20:05 Urine Appearance Cloudy (CLEAR) A 09/29/24 20:05 Urine pH 5.0 (5-7) 09/29/24 20:05 Ur Specific [place] 1.029 (1.005-1.030) 09/29/24 20:05 Urine Protein Negative (Negative) 09/29/24 20:05 Urine Glucose (UA) Negative (Normal) 09/29/24 20:05 Urine Ketones Trace (Negative) 09/29/24 20:05 Urine Blood Negative (Negative) 09/29/24 20:05 Urine Nitrate Positive (Negative) A 09/29/24 20:05 Urine Bilirubin 1+ (Negative) H 09/29/24 20:05 Urine Urobilinogen 1.0 mg/dL (Negative) 09/29/24 20:05 Ur Leukocyte Esterase Negative (Negative) 09/29/24 20:05 Urine RBC 21-50 /hpf (0-2) H 09/29/24 20:05 Urine WBC 0-5 /hpf (0-5) 09/29/24 20:05 Ur Squamous Epith Cells 0-5 /hpf (0-5) 09/29/24 20:05 Amorphous Sediment Not Reportable 09/29/24 20:05 Urine Bacteria 2+ /hpf (NONE) H 09/29/24 20:05 Hyaline Casts 0-4 /lpf H 09/29/24 20:05 All radiology interpretation(s) finalized by discharge EKG Data EKG 1: EKG interpretation date: 09/29/24 EKG interpretation time: 20:45 Prior EKG tracings: available for review Interpretation: EKG was reviewed with physician. Rate 69. Ventricular paced rhythm. No STEMI. Discharge Plan Discharge Patient Disposition: Home Clinical Impression: Fracture of distal end of ulna Qualifiers: Encounter type: initial encounter Fracture type: closed Fracture morphology: u nspecified fracture morphology Laterality: right Qualified Code(s): S52.601A - Unspecified fracture of lower end of right ulna, initial encounter for closed fracture Urinary tract infection Qualifiers: Urinary tract infection type: acute cystitis Hematuria presence: with hematuria Qualified Code(s): N30.01 - Acute cystitis with hematuria Fall Qualifiers: Encounter type: initial encounter Qualified Code(s): W19.XXXA - Unspecified fall, initial encounter Abrasion of face Qualifiers: Encounter type: initial encounter Qualified Code(s): S00.81XA - Abrasion of other part of head, initial encounter Condition: Stable Prescriptions: New cefdinir 300 mg capsule 300 mg PO BID 7 Days Qty: 14 0RF No Action isosorbide mononitrate 30 mg tablet extended release 24 hr 30 mg PO DAILY sertraline 50 mg tablet 50 mg PO DAILY cholecalciferol (vitamin D3) 2,000 unit tablet 2,000 unit PO DAILY gabapentin 300 mg capsule 300 mg PO BID losartan 25 mg tablet 25 mg PO DAILY mirabegron [Myrbetriq] 25 mg tablet extended release 24 hr 25 mg PO DAILY lidocaine HCl [Lidocaine Viscous] 2 % solution 1 applic topical ONCE Qty: 1 0RF acetaminophen [Tylenol] 325 mg tablet 325 mg PO QID PRN lutein-zeaxanthin [Ocuvite Lutein 25] 25-5 mg capsule PO DAILY docusate sodium [Colace] 100 mg capsule 100 mg PO DAILY Eliquis 2.5 mg tablet 2.5 mg PO BID Qty: 180 2RF Hold Instructions: until reviewed by primary care ketoconazole 2 % cream 1 applic topical BID PRN (Reason: flares) Rx Instructions: Apply to affected areas and skin folds x3 weeks. May use as needed for flares. memantine-donepezil 7-10 mg capsule,sprinkle,ER 24hr 1 cap PO DAILY 60 Days Qty: 60 2RF Discharge Orders: Discharge ED (Routine); Ordered 09/29/24 Ordered By: Titi Flanagan Referrals: Miguel Moser DO [Primary Care Provider] - Patient Instructions: Arm Fracture in Adults (ED), Urinary Tract Infection in Older Adults (ED) Activity Restrictions/Additional Instructions: Please follow-up with orthopedics as discussed. Take antibiotics for your urinary tract infection. Please continue taking other medications as prescribed. Return with any worsening of pain, neurological symptoms, or other concerns. assisted staff to assume care of your wounds. Coding Level of Care Code ED Residential Building [employer] for Scottie Diana Documented by User: George Nelson DO 09/30/24 07:52 HPI - Fall 2 General: Chief Complaint: Fall Stated Complaint: FALL Time Seen by Provider: 09/29/24 19:33 Related Data Home Medications Medication Instructions Recorded Confirmed cholecalciferol (vitamin D3) 50 2,000 unit PO DAILY 11/13/19 08/07/24 mcg (2,000 unit) tablet sertraline 50 mg tablet 50 mg PO DAILY 11/13/19 08/07/24 isosorbide mononitrate 30 mg 30 mg PO DAILY 02/02/20 08/07/24 tablet,extended release 24 hr ketoconazole 2 % topical cream 1 applic topical BID PRN flares 10/12/22 08/07/24 gabapentin 300 mg capsule 300 mg PO BID 10/23/22 08/07/24 acetaminophen 325 mg tablet 325 mg PO QID PRN 07/06/23 08/07/24 (Tylenol) docusate sodium 100 mg capsule 100 mg PO DAILY 07/06/23 08/07/24 (Colace) lutein 25 mg-zeaxanthin 5 mg cap PO DAILY 07/06/23 08/07/24 capsule (Ocuvite Lutein) losartan 25 mg tablet 25 mg PO DAILY 05/24/24 08/07/24 mirabegron 25 mg tablet,extended 25 mg PO DAILY 05/24/24 08/07/24 release 24 hr (Myrbetriq) Previous Rx's Medication Instructions Recorded apixaban 2.5 mg tablet (Eliquis) 2.5 mg PO BID #180 tabs 05/14/22 memantine ER 7 mg-donepezil 10 mg 1 cap PO DAILY 2 months #60 ea 01/13/23 capsule sprinkle,ext.release 24 hour cefdinir 300 mg capsule 300 mg PO BID 7 days #14 caps 09/29/24 Allergies Allergy/AdvReac Type Severity Reaction Status Date / Time morphine Allergy ADR-Halluci Verified 08/07/24 14:00 [facility] 2 PFSH: Medical History Delirium Dementia VANDANA (acute kidney injury) Syncope Acute encephalopathy Fracture, humerus, head Congestive heart failure CAD (coronary artery disease) Closed fracture of distal ends of right radius and ulna Venous (peripheral) insufficiency Cardiac resynchronization therapy defibrillator (OIL HEAT TECHNICIAN-D) in place Presence of stent in left circumflex coronary artery 2012 Atrial fibrillation HTN (hypertension) Surgical History History of automatic internal cardiac defibrillator (AICD) Family History Mother Breast cancer Other CAD (coronary artery disease) Social History Smoking and tobacco/nicotine status: unknown if used tobacco/nicotine Alcohol intake: never Substance/Drug Use: never Course 2 Vital Signs: Vital signs: Vital Signs Temperature 98 F 09/29/24 19:35 Pulse Rate 70 09/29/24 22:16 Respiratory Rate 16 09/29/24 22:16 Blood Pressure 186/76 09/29/24 22:16 Pulse Oximetry 98 09/29/24 22:16 MDM - Fall Medical Decision Making This patient was brought in by ambulance, had a fall greater than 12 hours prior to arrival. History of fall, she arrives with splint to right forearm as there was a reported fracture here. At my time of examination, patient was at baseline mentation, alert and oriented x 3. Granddaughter who later was in the room confirmed that patient has been at baseline. Neurologically was intact, there were signs of head trauma and patient was on blood thinner. All of her joints and extremities were palpated aside from the covered right forearm, there were no abnormalities noted here. X-ray of the right forearm did show a distal ulnar fracture with mild displacement, patient placed in sugar-tong and referred to orthopedics. Upon removal of her splint there were some minor skin tears noted, these appeared well and there was no active bleeding. Her CT head and neck were negative for any intracranial findings. Blood work was unremarkable including a negative creatinine kinase. Her urinalysis did have evidence of hemorrhagic cystitis, of which we will treat with antibiotics. Patient has remained calm and cooperative throughout ED stay, no pain at any point during visit. I discussed this case in thorough detail with Dr. Soares here in the emergency department, who agrees with the disposition of the patient back to correction after splint and antibiotics. Po splint neurovascular status intact, family comfortable with this plan. Chart reviewed Lab Data 09/29/24 19:53 09/29/24 19:53 Radiology Impressions Cervical Spine CT 09/29/24 19:39 IMPRESSION: No acute fracture or traumatic malalignment. Head CT 09/29/24 19:39 IMPRESSION: No acute intracranial hemorrhage or acute calvarial fracture. Wrist X-Ray 09/29/24 19:39 IMPRESSION: 1. [id number] displaced distal ulnar fracture. 2. Suggestion of nondisplaced distal radial fracture. Chronic distal radial fracture limits evaluation. Chest X-Ray 09/29/24 19:40 IMPRESSION: No acute cardiopulmonary disease. Laboratory Results WBC 7.99 10^3/uL (3.29-11.43) 09/29/24 19:53 RBC 3.32 10^6/uL (3.85-5.65) L 09/29/24 19:53 Hgb 12.00 g/dL (11.27-16.99) 09/29/24 19:53 Hct 37.4 % (36-47) 09/29/24 19:53 MCV 112.7 fl (85-98) H 09/29/24 19:53 MCH 36.1 pg (27-33) H 09/29/24 19:53 MCHC 32.1 g/dL (30-55) 09/29/24 19:53 RDW 14.6 % (12.1-15.1) 09/29/24 19:53 Plt Count 171 10^3/cmm (157-399) 09/29/24 19:53 MPV 10.3 fL (7.4-10.4) 09/29/24 19:53 Neut % (Auto) 66.9 % 09/29/24 19:53 Lymph % (Auto) 21.4 % 09/29/24 19:53 [place] % (Auto) 7.4 % 09/29/24 19:53 Eos % (Auto) 3.6 % 09/29/24 19:53 Baso % (Auto) 0.4 % 09/29/24 19:53 Neut # (Auto) 5.35 10^3/uL (1.8-7.7) 09/29/24 19:53 Lymph # (Auto) 1.7 10^3/uL (0.8-4.8) 09/29/24 19:53 [place] # (Auto) 0.6 10^3/uL (0.2-0.9) 09/29/24 19:53 Eos # (Auto) 0.3 10^3/uL (0.0-0.8) 09/29/24 19:53 Baso # (Auto) 0.0 10^3/uL (0.0-0.1) 09/29/24 19:53 Nucleated RBC % (auto) 0 % 09/29/24 19:53 Nucleated RBCs # 0.0 /100WBC 09/29/24 19:53 Sodium 140 mmol/L (136-145) 09/29/24 19:53 Potassium 3.9 mmol/L (3.5-5.1) 09/29/24 19:53 Chloride 104 mmol/L (98-107) 09/29/24 19:53 Carbon Dioxide 23 mmol/L (22-29) 09/29/24 19:53 Anion Gap 16.9 (5-19) 09/29/24 19:53 BUN 11 mg/dL (8-23) 09/29/24 19:53 Creatinine 0.9 mg/dL (0.5-0.9) 09/29/24 19:53 GFR Calculation Not Reportable 09/29/24 19:53 Glucose 92 mg/dL (65-115) 09/29/24 19:53 Calculated Osmolality 289 mOsm/kg (285-295) 09/29/24 19:53 Calcium 9.1 mg/dL (8.5-10.5) 09/29/24 19:53 Total Bilirubin 0.9 mg/dL (0.15-1.2) 09/29/24 19:53 AST 17 U/L (0-32) 09/29/24 19:53 ALT 10 U/L (0-33) 09/29/24 19:53 Alkaline Phosphatase 104 U/L (35-105) 09/29/24 19:53 Creatine Kinase 54 U/L (26-192) 09/29/24 19:53 Total Protein 6.9 g/dL (6.6-8.7) 09/29/24 19:53 Albumin 3.3 g/dL (3.5-5.2) L 09/29/24 19:53 Globulin 3.6 g/dL (1.3-4.6) 09/29/24 19:53 Urine Color Dark yellow (Yellow) A 09/29/24 20:05 Urine Appearance Cloudy (CLEAR) A 09/29/24 20:05 Urine pH 5.0 (5-7) 09/29/24 20:05 Ur Specific [place] 1.029 (1.005-1.030) 09/29/24 20:05 Urine Protein Negative (Negative) 09/29/24 20:05 Urine Glucose (UA) Negative (Normal) 09/29/24 20:05 Urine Ketones Trace (Negative) 09/29/24 20:05 Urine Blood Negative (Negative) 09/29/24 20:05 Urine Nitrate Positive (Negative) A 09/29/24 20:05 Urine Bilirubin 1+ (Negative) H 09/29/24 20:05 Urine Urobilinogen 1.0 mg/dL (Negative) 09/29/24 20:05 Ur Leukocyte Esterase Negative (Negative) 09/29/24 20:05 Urine RBC 21-50 /hpf (0-2) H 09/29/24 20:05 Urine WBC 0-5 /hpf (0-5) 09/29/24 20:05 Ur Squamous Epith Cells 0-5 /hpf (0-5) 09/29/24 20:05 Amorphous Sediment Not Reportable 09/29/24 20:05 Urine Bacteria 2+ /hpf (NONE) H 09/29/24 20:05 Hyaline Casts 0-4 /lpf H 09/29/24 20:05 Discharge Plan Discharge Patient Disposition: Home Clinical Impression: Fracture of distal end of ulna Qualifiers: Encounter type: initial encounter Fracture type: closed Fracture morphology: u nspecified fracture morphology Laterality: right Qualified Code(s): S52.601A - Unspecified fracture of lower end of right ulna, initial encounter for closed fracture Urinary tract infection Qualifiers: Urinary tract infection type: acute cystitis Hematuria presence: with hematuria Qualified Code(s): N30.01 - Acute cystitis with hematuria Fall Qualifiers: Encounter type: initial encounter Qualified Code(s): W19.XXXA - Unspecified fall, initial encounter Abrasion of face Qualifiers: Encounter type: initial encounter Qualified Code(s): S00.81XA - Abrasion of other part of head, initial encounter Condition: Stable Prescriptions: New cefdinir 300 mg capsule 300 mg PO BID 7 Days Qty: 14 0RF No Action isosorbide mononitrate 30 mg tablet extended release 24 hr 30 mg PO DAILY sertraline 50 mg tablet 50 mg PO DAILY cholecalciferol (vitamin D3) 2,000 unit tablet 2,000 unit PO DAILY gabapentin 300 mg capsule 300 mg PO BID losartan 25 mg tablet 25 mg PO DAILY mirabegron [Myrbetriq] 25 mg tablet extended release 24 hr 25 mg PO DAILY lidocaine HCl [Lidocaine Viscous] 2 % solution 1 applic topical ONCE Qty: 1 0RF acetaminophen [Tylenol] 325 mg tablet 325 mg PO QID PRN lutein-zeaxanthin [Ocuvite Lutein 25] 25-5 mg capsule PO DAILY docusate sodium [Colace] 100 mg capsule 100 mg PO DAILY Eliquis 2.5 mg tablet 2.5 mg PO BID Qty: 180 2RF Hold Instructions: until reviewed by primary care ketoconazole 2 % cream 1 applic topical BID PRN (Reason: flares) Rx Instructions: Apply to affected areas and skin folds x3 weeks. May use as needed for flares. memantine-donepezil 7-10 mg capsule,sprinkle,ER 24hr 1 cap PO DAILY 60 Days Qty: 60 2RF Discharge Orders: Discharge ED (Routine); Ordered 09/29/24 Ordered By: Titi Flanagan Referrals: Miguel Moser DO [Primary Care Provider] - Patient Instructions: Arm Fracture in Adults (ED), Urinary Tract Infection in Older Adults (ED) Activity Restrictions/Additional Instructions: Please follow-up with orthopedics as discussed. Take antibiotics for your urinary tract infection. Please continue taking other medications as prescribed. Return with any worsening of pain, neurological symptoms, or other concerns. assisted staff to assume care of your wounds. Coding Level of Care Code ED Residential Building Inspector for Scottie Diana
[2024-09-29 19:58] LABS: Basophils % 0.4 %; Eosinophils # 0.3 10^3/uL (0.0-0.8); Eosinophils % 3.6 %; Hematocrit 37.4 % (36-47); Lymphocytes # 1.7 10^3/uL (0.8-4.8); Lymphocytes % 21.4 %; Mean Corpuscular HGB Conc 32.1 g/dL (30-55); Mean Corpuscular Hemoglobin 36.1 pg (27-33); Mean Corpuscular Volume 112.7 fl (85-98); Mean Platelet Volume 10.3 fL (7.4-10.4); Monocytes # 0.6 10^3/uL (0.2-0.9); Monocytes % 7.4 %; Neutrophils # 5.35 10^3/uL (1.8-7.7); Neutrophils % 66.9 %; Nucleated Red Blood Cells % 0 %; Platelet Count 171 10^3/cmm (157-399); Red Blood Count 3.32 10^6/uL (3.85-5.65); Red Cell Distribution Width 14.6 % (12.1-15.1); White Blood Count 7.99 10^3/uL (3.29-11.43)
[2024-09-29 20:14] LABS: Alanine Aminotransferase 10 U/L (0-33); Albumin Level 3.3 g/dL (3.5-5.2); Alkaline Phosphatase 104 U/L (35-105); Anion Gap 16.9 (5-19); Aspartate Amino Transferase 17 U/L (0-32); Blood Urea Nitrogen 11 mg/dL (8-23); Calcium 9.1 mg/dL (8.5-10.5); Carbon Dioxide 23 mmol/L (22-29); Chloride 104 mmol/L (98-107); Creatine Phosphokinase 54 U/L (26-192); Creatinine Clr Calc Pharmacy 37.3798; Globulin 3.6 g/dL (1.3-4.6); Glucose 92 mg/dL (65-115); Osmolality Calculated 289 mOsm/kg (285-295); Potassium 3.9 mmol/L (3.5-5.1); Sodium 140 mmol/L (136-145); Total Bilirubin 0.9 mg/dL (0.15-1.2); Total Protein 6.9 g/dL (6.6-8.7)
[2024-09-29 20:23] LABS: Bilirubin Urine 1+ (Negative); Blood Urine Negative (Negative); Glucose Urine UA Negative (Normal); Ketones Urine Trace (Negative); Leukocyte Esterase Urine Negative (Negative); Nitrate Urine Positive (Negative); Protein Urine Negative (Negative); Specific Gravity, Urine 1.029 (1.005-1.030); Urine Appearance Cloudy (CLEAR); Urine Color Dark Yellow (Yellow)
[2024-09-29 20:28] LABS: Add Urine Microscopic? YES; Bacteria Urine 2+ /hpf; Hyaline Casts Urine 0-4 /lpf; RBC Urine 21-50 /hpf (0-2); Squamous Epithelial Cell Urine 0-5 /hpf (0-5); Universal Test for UA Present (0); WBC Urine 0-5 /hpf (0-5)
--- NOTE | 2024-09-29 20:43 | ECG_ITS ---
[facility]24[facility]29 Pat Name: Silvana Martinez Department: Room: Gender: Female Dock Manager: : [id number] Requested By: Titi Thakkar Order Number: [id number] Winter MD: Rajesh Chavira M.D. Measurements Intervals [place] Rate: 69 P: 0 OR: 0 QRS: -74 QRSD: 167 T: 90 QT: 461 QTc: 497 Interpretive Statements ELECTRONIC VENTRICULAR PACEMAKER Compared to ECG 01/09/2023 16:42:06 No significant changes Electronically Signed On 09-30-2024 23:26:24 MANAGER STRATEGIC DEVELOPMENT by Rajesh Chavira M.D. [email or web address]
[2024-09-29 20:52] LABS: Add Urine Culture? Yes
[2024-09-29] MEDS: cefdinir 300 MG CAPSULE PO (21:59)
[2024-09-29 22:16] VITALS: BP 186/76; PULSE 70; RESP 16; O2SAT 98
--- NOTE | 2024-10-02 07:17 | DCPLANNER ---
messaged ortho for er f/u
== END 2024-09-29 22:19 | disposition home or self-care (01) ==
PROVIDERS: Emergency Provider Physician Assistant; PCP Internal Medicine
DX: S52.601A Unspecified fracture of lower end of right ulna, initial encounter for closed fracture (principal); N30.01 Acute cystitis with hematuria; W19.XXXA Unspecified fall, initial encounter; S00.81XA Abrasion of other part of head, initial encounter; I11.0 Hypertensive heart disease with heart failure; I50.9 Heart failure, unspecified; I25.10 Atherosclerotic heart disease of native coronary artery without angina pectoris
CPT/HCPCS: 29125; 36415; 70450; 71045; 72125; 73110; 80053; 81001; 82550; 85025; 87086; 93005; 99285; 99291

== ENCOUNTER → 2024-10-05 14:25 | Outpatient (BNVA) | payer MEDICARE, MEDICAID, SELFPAY | PROVIDERS: PCP Internal Medicine; Visit Provider Orthopaedic Surgery | DX: S52.601A Unspecified fracture of lower end of right ulna, initial encounter for closed fracture (principal); W19.XXXD Unspecified fall, subsequent encounter | CPT/HCPCS: 73090 ==

== ENCOUNTER → 2024-11-02 08:39 | Outpatient (BNVA) | payer MEDICARE, MEDICAID, SELFPAY | PROVIDERS: PCP Internal Medicine; Visit Provider Orthopaedic Surgery | DX: S52.224D Nondisplaced transverse fracture of shaft of right ulna, subsequent encounter for closed fracture with routine healing (principal); X58.XXXD Exposure to other specified factors, subsequent encounter | CPT/HCPCS: 73090; 99213 ==

== ENCOUNTER 2024-11-02 09:15 | Outpatient (CLI) | payer MEDICARE, MEDICAID, SELFPAY | END 2024-11-02 09:16 | disposition home or self-care (01) | LOC: SPT 09:16 | PROVIDERS: PCP Internal Medicine; Visit Provider Orthopaedic Surgery | DX: Z46.89 Encounter for fitting and adjustment of other specified devices (principal); S52.601D Unspecified fracture of lower end of right ulna, subsequent encounter for closed fracture with routine healing; X58.XXXD Exposure to other specified factors, subsequent encounter | CPT/HCPCS: L3908 ==